=== PATIENT | female | born 1950 | race Caucasian/White ===

== ENCOUNTER 2019-10-20 12:37 | Observation (INO) | payer MEDICARE, SELFPAY ==
[2019-10-20] VITALS (8 sets, daily range): BP systolic 104–128; BP diastolic 51–85; PULSE 70–87; RESP 14–18; TEMP 36.9–38.8; O2SAT 94–99; BMI 31.3
--- NOTE | ~2019-10-20 | CT_ITS ---
EXAMINATION: CT brain wo con DATE: 10/20/2019 15:00 INDICATION: Mental status changes. Confusion. TECHNIQUE: Computed tomography (CT) of the head was performed without intravenous contrast. Sagittal and coronal reconstructions were performed. The mA was adjusted according to patient size. Iterative reconstruction technique was employed. The dose-length product was 605.33 mGy-cm. COMPARISON: head CT dated 02/24/2014 FINDINGS: No acute intracranial hemorrhage, acute infarction or abnormal extra axial fluid collection. Ventricl es are normal and symmetric. No mass/mass effect. Postoperative change of prior scleral buckle proced ure at the right orbit. The paranasal sinuses and mastoid air cells are normal. Intracranial calcifie d cerebral atherosclerosis is noted. IMPRESSION: 1. No acute intracranial process. Reviewed, dictated and finalized at location A.
--- NOTE | ~2019-10-20 | XR_ITS ---
EXAMINATION: XR chest 1V portable INDICATION: Cough TECHNIQUE: Portable AP chest at 0912 hours COMPARISON: 05/21/2012 FINDINGS: The lungs are free of acute opacities. There is no pleural effusion or pneumothorax. The ca rdiomediastinal silhouette is normal. There is an old healed fracture of the distal left clavicle. IMPRESSION: 1. No acute cardiopulmonary abnormality. Reviewed, dictated and finalized at location A.
--- NOTE | 2019-10-20 12:40 | ECG_ITS ---
Measurements Intervals [place] Rate: 83 P: 47 TX: 162 QRS: 53 QRSD: 93 T: 9 QT: 354 QTc: 417 Interpretive Statements SINUS RHYTHM BORDERLINE ST ABNORMALITY- DIFFUSE LEADS BASELINE WANDER- I, III, AVR, AVL, AVF BORDERLINE ECG Electronically Signed On 10-20-2019 13:22:58 CDT by Manas Crouch D.O.
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
[2019-10-20 13:25] LABS: Basophils Absolute Auto 0.03 K/mm3 (0.00-0.10); Basophils Percent Auto 0.4 % (0.0-1.0); Eosinophils Absolute Auto 0.21 K/mm3 (0.02-0.50); Eosinophils Percent Auto 2.9 % (1.0-6.0); Hematocrit 35.2 % (35.0-42.0); Immature Granulocyte Absolute 0.04 K/mm3 (0.00-0.00); Immature Granulocyte Percent A 0.5 % (0.0-0.0); Lymphocytes Absolute Auto 1.02 K/mm3 (1.10-4.50); Lymphocytes Percent Auto 13.9 % (18.0-42.0); Mean Corpuscular HGB Conc 34.1 g/dL (32.0-36.0); Mean Corpuscular Hemoglobin 32.7 pg (27.0-31.0); Mean Corpuscular Volume 95.9 fL (78.0-102.0); Mean Platelet Volume 9.3 fl (9.2-11.8); Monocytes Absolute Auto 0.42 K/mm3 (0.10-0.90); Monocytes Percent Auto 5.7 % (2.0-11.0); Neutrophils Absolute Auto 5.6 K/mm3 (1.7-7.2); Neutrophils Percent Auto 76.6 % (50.0-70.0); Platelet Count Result 226 K/mm3 (150-420); Red Blood Count 3.67 M/mm3 (4.20-5.40); Red Cell Distribution Width 11.5 % (11.6-14.4); White Blood Count 7.3 K/mm3 (4.8-10.8)
[2019-10-20 13:37] LABS: Prothrombin Time 10.5 Seconds (9.64-11.0)
[2019-10-20] MEDS: KETOROLAC 30 MG/ML VIAL (*BKC) IV PUSH (13:38)
[2019-10-20 13:52] LABS: Add Urine Microscopic? YES; Appearance Urine Clear (Clear); Bilirubin Urine Negative (Negative); Blood Urine 3+ (Negative); Color Urine Yellow (Yellow); Glucose Urine UA Negative (Negative); Ketones Urine Negative (Negative); Leukocyte Esterase Ur Negative LEU/UL (Negative); Nitrate Urine Negative (Negative); Protein Urine Negative (Negative); Urobilinogen Urine 0.2 mg/dL (0.2-1.0); pH Urine 6.5 (5.0-8.0)
[2019-10-20 13:57] LABS: Bacteria Urine Trace /hpf; Squamous Epithelial Cell Urine None seen /hpf (Few); WBC Urine 0-3 /hpf (0-3)
[2019-10-20 14:01] LABS: Alanine Aminotransferase 25 U/L (14-59); Albumin Level 3.4 g/dL (3.4-5.0); Alkaline Phosphatase 84 U/L (46-116); Anion Gap 10.7 mmol/L (7-16); Aspartate Amino Transferase 24 U/L (15-37); Bilirubin,Total 0.2 mg/dL (0.00-1.00); Blood Urea Nitrogen 17 mg/dL (7-18); Calcium 8.8 mg/dL (8.5-10.1); Carbon Dioxide 31 mmol/L (21-32); Chloride 99 mmol/L (98-108); Estimated CRCL calculation 45 ml/min; Estimated Glomerular Filt Rate 50; Glucose 105 mg/dL (70-99); Osmolality Calculated 287 mOsm/kg (285-295); Potassium 2.7 mmol/L (3.5-5.1); Sodium 138 mmol/L (136-145); Thyroid Stimulating Hormone 1.59 uIU/mL (0.36-3.74); Total Protein 7.3 g/dL (6.4-8.2)
[2019-10-20] MEDS: KCL 20 MEQ/SW 100 ML 100 ML 50 MEQ IVPB (14:23)
[2019-10-20] MEDS: POTASSIUM BICARBONATE 25 MEQ TABEF PO (14:23)
[2019-10-20] MEDS: SODIUM CHLORIDE 0.9% IV 250 ML 30 ML (14:38)
--- NOTE | 2019-10-20 16:12 | PC.NURSE ---
Pt resting comfortably on stretcher no complaints at this time. potassium continues to infuse
--- NOTE | 2019-10-20 16:34 | PC.NURSE ---
Pt refused to have any further potassium infused. edp aware.
--- NOTE | 2019-10-20 17:13 | PC.NURSE ---
Pt agrees to admission, pts family updated.
[2019-10-20 17:48] LABS: Thyroid Stimulating Hormone 1.48 uIU/mL (0.36-3.74)
--- NOTE | 2019-10-20 18:42 | ADMGEN ---
This patient, Shelley Soria, was admitted to 2nd Floor Room 206-1. Patient/family oriented to hospital policies and general routines including ID bracelet, bed and alarms, visiting hours, pain management, procedures, bathroom and other care routines, personal items, smoking policy, room service/diet, and visiting hours. Valuables list has been completed. Information on how to activate the Rapid Response Team has been discussed. Patient/Family are encouraged to report perceived risks to care and to ask questions if they do not understand what they are told or what they should do.
--- NOTE | 2019-10-20 20:00 | PC.NURSE ---
pt a&o x3, denies any symptoms of dizziness or sob, denies pain, belongings and call light within reach, pt denies any needs at this time.
--- NOTE | 2019-10-20 21:30 | PC.NURSE ---
pt sleeping, respirations even and regular, no evidence of distress noted.
--- NOTE | 2019-10-20 22:37 | PC.NURSE ---
pt sleeping, respirations even and regular, no evidence of distress noted.
[2019-10-20] MEDS: ACETAMINOPHEN 500 MG TABLET 1000 MG PO (23:08)
--- NOTE | 2019-10-21 | PC.NURSE ---
pt temp has returned to wnl, pt a&o x2
[2019-10-21 00:10] VITALS: BP 120/44; PULSE 78; RESP 20; TEMP 37.3; O2SAT 93
--- NOTE | 2019-10-21 02:05 | PC.NURSE ---
pt sleeping, respirations even and regular, no evidence of distress noted at this time.
--- NOTE | 2019-10-21 04:21 | PC.NURSE ---
pt sleeping, respirations even and regular, no evidence of distress noted.
[2019-10-21] MEDS: LEVOTHYROXINE SODIUM 112 MCG TABLET PO (05:18)
--- NOTE | 2019-10-21 05:45 | PC.NURSE ---
lab at bedside
[2019-10-21 06:08] LABS: Basophils Absolute Auto 0.04 K/mm3 (0.00-0.10); Basophils Percent Auto 0.5 % (0.0-1.0); Eosinophils Absolute Auto 0.25 K/mm3 (0.02-0.50); Hematocrit 39.5 % (35.0-42.0); Hemoglobin 13.4 g/dL (11.7-13.8); Immature Granulocyte Absolute 0.05 K/mm3 (0.00-0.00); Immature Granulocyte Percent A 0.6 % (0.0-0.0); Lymphocytes Absolute Auto 1.45 K/mm3 (1.10-4.50); Lymphocytes Percent Auto 17.6 % (18.0-42.0); Mean Corpuscular HGB Conc 33.9 g/dL (32.0-36.0); Mean Corpuscular Hemoglobin 32.6 pg (27.0-31.0); Mean Corpuscular Volume 96.1 fL (78.0-102.0); Mean Platelet Volume 9.8 fl (9.2-11.8); Monocytes Absolute Auto 0.37 K/mm3 (0.10-0.90); Monocytes Percent Auto 4.5 % (2.0-11.0); Neutrophils Absolute Auto 6.1 K/mm3 (1.7-7.2); Neutrophils Percent Auto 73.8 % (50.0-70.0); Platelet Count Result 241 K/mm3 (150-420); Red Blood Count 4.11 M/mm3 (4.20-5.40); Red Cell Distribution Width 11.4 % (11.6-14.4); White Blood Count 8.3 K/mm3 (4.8-10.8)
[2019-10-21 06:21] LABS: Anion Gap 13.3 mmol/L (7-16); Blood Urea Nitrogen 21 mg/dL (7-18); Calcium 8.6 mg/dL (8.5-10.1); Carbon Dioxide 31 mmol/L (21-32); Chloride 102 mmol/L (98-108); Estimated CRCL calculation 41 ml/min; Estimated Glomerular Filt Rate 47; Glucose 105 mg/dL (70-99); Osmolality Calculated 299 mOsm/kg (285-295); Potassium 3.3 mmol/L (3.5-5.1); Sodium 143 mmol/L (136-145)
[2019-10-21 08:00] VITALS: BP 135/60; PULSE 86; RESP 18; TEMP 38.3; O2SAT 95
[2019-10-21] MEDS: ACETAMINOPHEN 500 MG TABLET 1000 MG PO ×2 (08:20→17:53)
--- NOTE | 2019-10-21 08:24 | PC.NURSE ---
tylenol given for headache, no cough, fever 101, denies any other compalints
--- NOTE | 2019-10-21 09:30 | PC.NURSE ---
Alert and oriented, cooperative, sleeping at times, denies needs
[2019-10-21] MEDS: PAROXETINE 20 MG TABLET 40 MG PO (09:53)
[2019-10-21] MEDS: hydroCHLOROthiazide 25 MG TABLET 50 MG PO (09:53)
--- NOTE | 2019-10-21 09:57 | PC.NURSE ---
no change in headache, requesting stronger pain medication, will check with hospitalist
--- NOTE | 2019-10-21 11:08 | PC.NURSE ---
isolation status has changed and will be on aerosol isolation at this time, no change in headache, napping at intervals, fever off and on
[2019-10-21 11:12] LABS: Influenza Control Valid (Valid)
[2019-10-21 11:18] LABS: Acetaminophen 9 ug/mL (10-30); Ethanol < 3 mg/dL (0-6); Salicylate 2.5 mg/dL (2.8-20.0)
[2019-10-21 11:22] LABS: Amphetamine Screen Urine Positive (Negative); Barbiturate Screen Urine Negative (Negative); Benzodiazepines Screen Urine Negative (Negative); Cannabinoid Screen Urine Negative (Negative); Cocaine Screen Urine Negative (Negative); Methadone Screen Urine Negative (Negative); Opiate Screen Urine Negative (Negative); Phencyclidine Screen Urine Negative (Negative)
[2019-10-21 11:41] LABS: Lactic Acid Reflex 0.8 mmol/L (0.4-2.0)
--- NOTE | 2019-10-21 12:00 | PC.NURSE ---
Alert and conversive, encouraged to eat lunch, states not hungry really, sleeping off and on wakes oriented when spoken to,
[2019-10-21] MEDS: POTASSIUM CHLORIDE 20 MEQ PACKET (FOR LIQUID) 40 MEQ PO (13:23)
--- NOTE | 2019-10-21 13:40 | PC.NURSE ---
Bed change completed, has been incontinent, did ambulate to bathroom with SBA, gait steady
--- NOTE | 2019-10-21 14:30 | PC.NURSE ---
Resting quietly, no distress, remains on isolation
[2019-10-21 16:00] VITALS: BP 123/64; PULSE 91; RESP 20; TEMP 38.8; O2SAT 94
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
--- NOTE | 2019-10-21 16:57 | PC.NURSE ---
pt found laying on couch upon entering room, pt had gotten up unassisted to use restroom and reported feeling dizzy so she laid down, up with assist to chair then to bed, reminded not to get up without assist and that due to need for ppe's it takes extra time, call light given, bed alarm on, tv turned on, changed sheets and put depend on
[2019-10-21 17:53] VITALS: TEMP 38.8
--- NOTE | 2019-10-21 19:00 | PC.NURSE ---
pt up out of bed, asks for sleeping pill that will knock her out all night or something for her headache, pt reminded that she was just given tylenol, back in bed, rails up
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
--- NOTE | 2019-10-21 22:03 | PC.NURSE ---
pt appears to be sleeping, no s/sx of distress, laying on stomach, breathing noted, rails up, call light in reach
--- NOTE | 2019-10-21 23:15 | PC.NURSE ---
Patient appears to be sleeping. No signs of distress are observed. Call light is within reach.
[2019-10-22] VITALS: BP 122/69; PULSE 82; RESP 20; TEMP 37.3; O2SAT 98
[2019-10-22] MEDS: ACETAMINOPHEN 500 MG TABLET 1000 MG PO (01:30)
--- NOTE | 2019-10-22 02:51 | PC.NURSE ---
Patient resting in bed. No signs of distress are observed. Call light is within reach.
[2019-10-22 05:38] LABS: Hematocrit 39.7 % (35.0-42.0); Hemoglobin 13.5 g/dL (11.7-13.8); Mean Corpuscular Hemoglobin 32.5 pg (27.0-31.0); Mean Corpuscular Volume 95.7 fL (78.0-102.0); Platelet Count Result 215 K/mm3 (150-420); Red Blood Count 4.15 M/mm3 (4.20-5.40); Red Cell Distribution Width 11.3 % (11.6-14.4); White Blood Count 10.2 K/mm3 (4.8-10.8)
[2019-10-22 06:04] LABS: Lactic Acid 1.2 mmol/L (0.4-2.0)
[2019-10-22 06:10] LABS: Alanine Aminotransferase 26 U/L (14-59); Albumin Level 3.2 g/dL (3.4-5.0); Alkaline Phosphatase 87 U/L (46-116); Anion Gap 16.2 mmol/L (7-16); Aspartate Amino Transferase 23 U/L (15-37); Bilirubin,Total 0.3 mg/dL (0.00-1.00); Blood Urea Nitrogen 21 mg/dL (7-18); Calcium 8.5 mg/dL (8.5-10.1); Carbon Dioxide 29 mmol/L (21-32); Chloride 98 mmol/L (98-108); Estimated CRCL calculation 42 ml/min; Estimated Glomerular Filt Rate 48; Glucose 112 mg/dL (70-99); Magnesium 1.5 mg/dL (1.8-2.4); Osmolality Calculated 294 mOsm/kg (285-295); Potassium 3.2 mmol/L (3.5-5.1); Sodium 140 mmol/L (136-145)
[2019-10-22] MEDS: LEVOTHYROXINE SODIUM 112 MCG TABLET PO (06:37)
[2019-10-22 08:00] VITALS: BP 128/74; PULSE 78; RESP 16; TEMP 36.6; O2SAT 98
[2019-10-22] MEDS: hydroCHLOROthiazide 25 MG TABLET 50 MG PO (08:25)
[2019-10-22] MEDS: PAROXETINE 20 MG TABLET 40 MG PO (08:25)
--- NOTE | 2019-10-22 09:25 | PC.NURSE ---
0900 xray here for test. claims to still leave breakfast and she is hungry but to earily to eat.
[2019-10-22] MEDS: MAGNESIUM OXIDE 400 MG TABLET PO (10:41)
[2019-10-22] MEDS: POTASSIUM CHLORIDE 20 MEQ TABLET 40 MEQ PO (10:41)
--- NOTE | 2019-10-22 12:19 | P.PNIM_ITS ---
Progress Note: A&P Assessment and Plan (1) Hypothyroidism: Code(s): E03.9 - Hypothyroidism, unspecified Status: Acute Assessment and Plan: * stable * TSH 1.48 * continue Synthroid 112 mcg daily (2) Altered mental status: Code(s): R41.82 - Altered mental status, unspecified Status: Acute Assessment and Plan: * could possibly be secondary to noncompliance with psychiatric meds versus bacterial or viral infection * apparently patient has a history of altered mental status * for any medication now alters patient's mental status * will discussed discharge plan to an assisted living * COVID-19 pending * influenza negative * drug screen negative * lactic acid within limits * chest x-ray unremarkable * will follow-up with patient's psychologist (3) Hypertension: Code(s): I10 - Essential (primary) hypertension Status: Acute Assessment and Plan: * stable blood pressure stable * continue hydrochlorothiazide (4) H/O bariatric surgery: Code(s): Z98.84 - Bariatric surgery status Status: Acute Assessment and Plan: * patient will follow-up with [facility] (5) Depression: Code(s): F32.9 - Major depressive disorder, single episode, unspecified Status: Acute Assessment and Plan: * stable * continue Paxil (6) Febrile: Code(s): R50.9 - Fever, unspecified Status: Acute Assessment and Plan: * possibly due to viral versus bacterial infection * patient spiked a fever 101 overnight * white count a slight increase yesterday 8.3 today 10.2 * patient chest x-ray unremarkable * patient blood culture pending * UA does not indicate a urinary tract infection * influenza negative * COVID-19 pending * will closely monitor patient's temperature * continue to treat with Tylenol Subjective Date/time seen: 10/22/19 12:19 Mrs. Soria was alert orientated x4 today. she did not have any complaints at this time. I did speak with patient's son and he informed me that when she is noncompliant with her medication she has episodes similar to this one. I will contact her psychiatrist Dr. Selvin Scott [phone] for any recommendations. The patient did tell me that her roommate makes sure she takes her medication daily. She said that she forgot to tell her son that she doesn't miss her medication anymore. Patient will remain as inpatient for 1 more day seeing that she spiked a temperature of 101? overnight. Review of Systems Constitutional: Constitutional: Denies headache(s) and Reports weakness Eyes: Eyes: Denies loss of vision ENT: Denies vertigo, Denies dizziness and Denies headache(s) Cardiovascular: Cardiovascular: Reports no additional cardiovascular complaints, Denies chest pain, Denies chest pain at rest, Denies syncope, Denies dyspnea, Denies dyspnea on exertion and Denies orthopnea Respiratory: Respiratory: Reports no additional respiratory complaints, Denies pain with cough, Denies dyspnea, Denies dyspnea on exertion and Denies wheezing Gastrointestinal: Gastrointestinal: Reports no additional gastrointestinal complaints, Denies GI cramping, Denies dyspepsia, Denies heartburn, Denies diarrhea, Denies loose stools, Denies nausea, Denies vomiting and Denies hematemesis Genitourinary: Genitourinary: Reports no additional female genitourinary complaints and Denies dysuria Musculoskeletal: Musculoskeletal: Reports no additional musculoskeletal complaints, Denies muscle cramps,
--- NOTE | 2019-10-22 12:19 | PM.IMPN ---
Progress Note: A&P Assessment and Plan (1) Hypothyroidism: Code(s): E03.9 - Hypothyroidism, unspecified Status: Acute Assessment and Plan: stable TSH 1.48 continue Synthroid 112 mcg daily (2) Altered mental status: Code(s): R41.82 - Altered mental status, unspecified Status: Acute Assessment and Plan: could possibly be secondary to noncompliance with psychiatric meds versus bacterial or viral infection apparently patient has a history of altered mental status for any medication now alters patient's mental status will discussed discharge plan to an assisted living [facility]-19 pending influenza negative drug screen negative lactic acid within limits chest x-ray unremarkable will follow-up with patient's psychologist (3) Hypertension: Code(s): I10 - Essential (primary) hypertension Status: Acute Assessment and Plan: stable blood pressure stable continue hydrochlorothiazide (4) H/O bariatric surgery: Code(s): Z98.84 - Bariatric surgery status Status: Acute Assessment and Plan: patient will follow-up with Bariatric Clinic (5) Depression: Code(s): F32.9 - Major depressive disorder, single episode, unspecified Status: Acute Assessment and Plan: stable continue Paxil (6) Febrile: Code(s): R50.9 - Fever, unspecified Status: Acute Assessment and Plan: possibly due to viral versus bacterial infection patient spiked a fever 101 overnight white count a slight increase yesterday 8.3 today 10.2 patient chest x-ray unremarkable patient blood culture pending UA does not indicate a urinary tract infection influenza negative COVID-19 pending will closely monitor patient's temperature continue to treat with Tylenol Subjective Date/time seen: 10/22/19 12:19 Mrs. Soria was alert orientated x4 today. she did not have any complaints at this time. I did speak with patient's son and he informed me that when she is noncompliant with her medication she has episodes similar to this one. I will contact her psychiatrist Dr. Selvin Scott [phone] for any recommendations. The patient did tell me that her roommate makes sure she takes her medication daily. She said that she forgot to tell her son that she doesn't miss her medication anymore. Patient will remain as inpatient for 1 more day seeing that she spiked a temperature of 101? overnight. Review of Systems Constitutional: Constitutional: Denies headache(s) and Reports weakness Eyes: Eyes: Denies loss of vision ENT: Denies vertigo, Denies dizziness and Denies headache(s) Cardiovascular: Cardiovascular: Reports no additional cardiovascular complaints, Denies chest pain, Denies chest pain at rest, Denies syncope, Denies dyspnea, Denies dyspnea on exertion and Denies orthopnea Respiratory: Respiratory: Reports no additional respiratory complaints, Denies pain with cough, Denies dyspnea, Denies dyspnea on exertion and Denies wheezing Gastrointestinal: Gastrointestinal: Reports no additional gastrointestinal complaints, Denies GI cramping, Denies dyspepsia, Denies heartburn, Denies diarrhea, Denies loose stools, Denies nausea, Denies vomiting and Denies hematemesis Genitourinary: Genitourinary: Reports no additional female genitourinary complaints and Denies dysuria Musculoskeletal: Musculoskeletal: Reports no additional musculoskeletal complaints, Denies muscle cramps, Denies muscle weakness, Denies numbness, Denies stiffness and Denies tingling Integumentary/Breasts: Skin/Breast: Reports system reviewed and no additional complaints, except as docu Neurologic: Denies Abnormal speech present, Denies confusion, Denies vertigo, Denies dizziness, Denies syncope, Denies headache(s), Denies loss of vision, Denies numbness, Denies seizure-like activity, Denies tingling and Reports weakness Psychiatric: Psychiatric:
[2019-10-22 13:42] LABS: SARS-CoV-2 RNA PCR Negative
[2019-10-22 16:00] VITALS: BP 108/52; PULSE 76; RESP 18; TEMP 37; O2SAT 98
--- NOTE | 2019-10-22 18:41 | PM.IMHP ---
H&P: HPI History of Present Illness Chief complaint: ambulance Narrative: Shelley Soria is a 69 year old female [facility] Past Medical History Medical History (Updated 10/22/19 @ 12:34 by ANGELA Sahu) Depression Hypertension Hypothyroidism Surgical History Surgical History (Updated 10/20/19 @ 13:51 by Curtis Snell MD) H/O bariatric surgery History of cholecystectomy Social History Social History (Updated 10/20/19 @ 13:52 by Curtis Snell MD) Smoking status: Never smoker Alcohol intake: never Alcohol use details: occasional Substance use: never Gender identity (if verbalized by the patient): Female Spiritual care concerns: No Agree to blood products: Yes Meds Home Medications and Allergies Home Medications Medication Instructions Recorded Confirmed Type dextroamphetamine-amphetamine 7.5 mg PO BID 10/20/19 10/20/19 History hydrochlorothiazide 50 mg PO DAILY 10/20/19 10/20/19 History levothyroxine 112 mcg PO DAILY 10/20/19 10/20/19 History paroxetine HCl 40 mg PO DAILY 10/20/19 10/20/19 History Allergies Allergy/AdvReac Type Severity Reaction Status Date / Time No Known Allergies Allergy Verified 12/01/14 19:40 Vital Signs Vital Signs - 24 hr 10/22/19 00:00 10/22/19 08:00 10/22/19 16:00 Temperature 99.2 F 98 F 98.6 F Pulse Rate 82 78 76 Respiratory Rate 20 16 18 Blood Pressure 122/69 128/74 108/52 L Pulse Oximetry 98 98 98 H&P: Results Labs Labs: Short CBC 10/22/19 Range/Units 05:09 WBC 10.2 (4.8-10.8) K/mm3 Hgb 13.5 (11.7-13.8) g/dL Hct 39.7 (35.0-42.0) % Plt Count 215 (150-420) K/mm3 BMP 10/22/19 05:09 Sodium 140 Potassium 3.2 L Chloride 98 Carbon Dioxide 29 BUN 21 H Creatinine 1.13 H Glucose 112 H Calcium 8.5 Liver Function 10/22/19 Range/Units 05:09 Total Bilirubin 0.3 (0.00-1.00) mg/dL AST 23 (15-37) U/L ALT 26 (14-59) U/L Alkaline Phosphatase 87 (46-116) U/L Albumin 3.2 L (3.4-5.0) g/dL Assessment and Plan Assessment and plan (1) Febrile: Code(s): R50.9 - Fever, unspecified Status: Acute (2) Hypothyroidism: Code(s): E03.9 - Hypothyroidism, unspecified Status: Acute (3) Altered mental status: Code(s): R41.82 - Altered mental status, unspecified Status: Acute
--- NOTE | 2019-10-22 23:15 | PC.NURSE ---
Patient resting in bed. No signs of distress are observed.
[2019-10-23] VITALS: BP 118/62; PULSE 63; RESP 18; TEMP 36; O2SAT 97
--- NOTE | 2019-10-23 01:12 | PC.NURSE ---
Patient ambulated to the bathroom with stand by assist. patient voided. Patient required verbal cues to preform hand hygiene
[2019-10-23] MEDS: ACETAMINOPHEN 500 MG TABLET 1000 MG PO (03:38)
[2019-10-23 05:07] VITALS: TEMP 36.4
[2019-10-23] MEDS: LEVOTHYROXINE SODIUM 112 MCG TABLET PO (05:10)
[2019-10-23 05:45] LABS: Hematocrit 37.5 % (35.0-42.0); Mean Corpuscular HGB Conc 34.7 g/dL (32.0-36.0); Mean Corpuscular Hemoglobin 32.6 pg (27.0-31.0); Mean Platelet Volume 10.2 fl (9.2-11.8); Platelet Count Result 203 K/mm3 (150-420); Red Blood Count 3.99 M/mm3 (4.20-5.40); Red Cell Distribution Width 11.3 % (11.6-14.4); White Blood Count 9.7 K/mm3 (4.8-10.8)
[2019-10-23 06:15] LABS: Alanine Aminotransferase 23 U/L (14-59); Albumin Level 2.9 g/dL (3.4-5.0); Alkaline Phosphatase 80 U/L (46-116); Anion Gap 13.8 mmol/L (7-16); Aspartate Amino Transferase 20 U/L (15-37); Bilirubin,Total 0.2 mg/dL (0.00-1.00); Blood Urea Nitrogen 19 mg/dL (7-18); Calcium 8.5 mg/dL (8.5-10.1); Carbon Dioxide 27 mmol/L (21-32); Chloride 99 mmol/L (98-108); Estimated CRCL calculation 47 ml/min; Estimated Glomerular Filt Rate 54; Glucose 137 mg/dL (70-99); Osmolality Calculated 288 mOsm/kg (285-295); Potassium 2.8 mmol/L (3.5-5.1); Sodium 137 mmol/L (136-145); Total Protein 6.5 g/dL (6.4-8.2)
[2019-10-23 06:18] LABS: Lactic Acid Reflex 1.2 mmol/L (0.4-2.0)
[2019-10-23 07:10] VITALS: PULSE 68; RESP 18; TEMP 36.6; O2SAT 97
[2019-10-23] MEDS: POTASSIUM CHLORIDE 20 MEQ TABLET 40 MEQ PO (09:04)
[2019-10-23] MEDS: PAROXETINE 20 MG TABLET 40 MG PO (09:04)
[2019-10-23] MEDS: hydroCHLOROthiazide 25 MG TABLET 50 MG PO (09:05)
[2019-10-23] MEDS: MAGNESIUM OXIDE 400 MG TABLET PO (09:05)
[2019-10-23 09:53] LABS: Magnesium 1.5 mg/dL (1.8-2.4)
--- NOTE | 2019-10-23 10:27 | PC.NURSE ---
Up in room, independent, denies needs, ready to go home, dressed self
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
--- NOTE | 2019-10-23 11:40 | PC.NURSE ---
Discharge via wheel chair to home, personal items and discharge instructions given to patient, no questions voiced
--- NOTE | 2019-10-27 16:41 | PC.NURSE ---
DISCHARGE FOLLOW UP CALL: NUMBER NOT IN SERVICE [phone]
== END 2019-10-23 11:40 | disposition home or self-care (01) ==
LOC: CHSED 17:20 → CHS2ND 17:27
PROVIDERS: Nurse Practitioner; Admitting Provider Emergency Medicine; Emergency Provider Emergency Medicine; Visit Provider Emergency Medicine
DX: R41.82 Altered mental status, unspecified (principal); E87.6 Hypokalemia; R41.0 Disorientation, unspecified; R50.9 Fever, unspecified; E03.9 Hypothyroidism, unspecified; I10 Essential (primary) hypertension; F32.9 Major depressive disorder, single episode, unspecified; E78.5 Hyperlipidemia, unspecified; R53.1 Weakness; R53.81 Other malaise; Z79.899 Other long term (current) drug therapy; Z20.828 Contact with and (suspected) exposure to other viral communicable diseases; Z98.84 Bariatric surgery status
CPT/HCPCS: 51701; 36415; 70450; 71045; 80048; 80053; 80307; 81001; 83605; 83735; 84443; 85025; 85027; 85610; 87040; 87635; 87804; 93005; 96361; 96365; 96366; 96375; 99285; A9270; G0378; J1885; J3480; J7050; U0003

== ENCOUNTER 2020-07-21 22:34 | Emergency (ER) | payer MEDICARE, SELFPAY ==
--- NOTE | ~2020-07-21 | XR_ITS ---
EXAMINATION: XR chest 1V portable INDICATION: Chest wall pain TECHNIQUE: Portable AP chest at 2310 hours COMPARISON: 10/22/2019 FINDINGS: There are airspace opacities of the left lung base. No pleural effusion or pneumothorax is identified. The cardiomediastinal silhouette is normal. IMPRESSION: 1. Left basilar airspace opacity, consistent with atelectasis versus pneumonia. Reviewed, dictated and finalized at location A. RIAL LIAISON
[2020-07-21 22:43] VITALS: BP 155/61; PULSE 65; RESP 20; TEMP 36.6; O2SAT 98
--- NOTE | 2020-07-21 22:45 | ECG_ITS ---
Measurements Intervals [place] Rate: 66 P: 65 [place]: 183 QRS: 31 QRSD: 86 T: 44 QT: 383 QTc: 404 Interpretive Statements SINUS RHYTHM BASELINE ARTIFACT- I, II, III, AVL, AVF, V4-V6 NORMAL ECG Electronically Signed On 07-22-2020 9:31:53 LIVESTOCK AGENT by Manas Crouch D.O.
[2020-07-21 22:50] VITALS: PULSE 65; O2SAT 97
[2020-07-21] MEDS: KETOROLAC (*BKC) 60 MG/2 ML VIAL IM (22:59)
[2020-07-21 23:48] LABS: Basophils Absolute Auto 0.03 K/mm3 (0.00-0.10); Basophils Percent Auto 0.4 % (0.0-1.0); Eosinophils Absolute Auto 0.09 K/mm3 (0.02-0.50); Eosinophils Percent Auto 1.1 % (1.0-6.0); Hematocrit 35.9 % (35.0-42.0); Hemoglobin 12.3 g/dL (11.7-13.8); Immature Granulocyte Absolute 0.02 K/mm3 (0.00-0.00); Immature Granulocyte Percent A 0.3 % (0.0-0.0); Lymphocytes Absolute Auto 2.39 K/mm3 (1.10-4.50); Lymphocytes Percent Auto 30.1 % (18.0-42.0); Mean Corpuscular HGB Conc 34.3 g/dL (32.0-36.0); Mean Corpuscular Volume 96.2 fL (78.0-102.0); Mean Platelet Volume 9.4 fl (9.2-11.8); Monocytes Absolute Auto 0.62 K/mm3 (0.10-0.90); Monocytes Percent Auto 7.8 % (2.0-11.0); Neutrophils Absolute Auto 4.8 K/mm3 (1.7-7.2); Neutrophils Percent Auto 60.3 % (50.0-70.0); Platelet Count Result 286 K/mm3 (150-420); Red Blood Count 3.73 M/mm3 (4.20-5.40); Red Cell Distribution Width 11.3 % (11.6-14.4); White Blood Count 7.9 K/mm3 (4.8-10.8)
[2020-07-22 00:06] LABS: Alanine Aminotransferase 19 U/L (14-59); Albumin Level 3.7 g/dL (3.4-5.0); Alkaline Phosphatase 86 U/L (46-116); Anion Gap 9 mmol/L (8-16); Aspartate Amino Transferase 16 U/L (15-37); Bilirubin,Total 0.3 mg/dL (0.00-1.00); Blood Urea Nitrogen 34 mg/dL (7-18); Carbon Dioxide 26 mmol/L (21-32); Chloride 103 mmol/L (98-108); Estimated CRCL calculation 47 ml/min; Estimated Glomerular Filt Rate 54; Glucose 104 mg/dL (70-99); Osmolality Calculated 293 mOsm/kg (285-295); Potassium 4.2 mmol/L (3.5-5.1); Sodium 138 mmol/L (136-145); Total Protein 7.7 g/dL (6.4-8.2); Troponin I 7.1 ng/L (0.00-60.4)
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
[2020-07-22 00:16] VITALS: BP 138/56; PULSE 61; RESP 20; O2SAT 98
== END 2020-07-22 00:25 | disposition home or self-care (01) ==
PROVIDERS: Emergency Provider Emergency Medicine; PCP Physician Assistant
DX: M94.0 Chondrocostal junction syndrome [Tietze] (principal); S29.011A Strain of muscle and tendon of front wall of thorax, initial encounter; J18.9 Pneumonia, unspecified organism; I10 Essential (primary) hypertension; E03.9 Hypothyroidism, unspecified
CPT/HCPCS: 36415; 71045; 80053; 84484; 85025; 93005; 96372; 99283; 99284; J1885

== ENCOUNTER 2021-01-11 12:10 | Outpatient (CLI) | payer MEDICARE, SELFPAY ==
--- NOTE | ~2021-01-11 | US_ITS ---
EXAMINATION: US soft tissue head and neck DATE: 01/11/2021 12:35 INDICATION: Enlarging 2 cm right neck mass TECHNIQUE: Multiple grayscale and Doppler ultrasound images of the region of concern at the right nec k below the right ear were obtained. COMPARISON: None FINDINGS/IMPRESSION: 2.2 x 2.0 x 1.3 cm hypoechoic mass with some internal vascularity on color Doppler within the right p arotid gland. Differential includes both benign neoplasm such as pleomorphic adenoma and report and W arthin tumor as well as several types of malignant carcinomas and metastatic disease. Consider ultras ound-guided biopsy for further evaluation. Reviewed, dictated and finalized at location A.
== END 2021-01-11 12:11 | disposition home or self-care (01) ==
LOC: CHSIMG 12:11
PROVIDERS: PCP Physician Assistant; Visit Provider Physician Assistant
DX: R22.1 Localized swelling, mass and lump, neck (principal)
CPT/HCPCS: 76536

== ENCOUNTER 2021-01-23 13:12 | Outpatient (CLI) | payer MEDICARE, SELFPAY ==
--- NOTE | ~2021-01-23 | US_ITS ---
EXAMINATION: US FNA w image guidance DATE: 01/23/2021 14:07 INDICATION: Right neck mass with parotid nodule TECHNIQUE: A time-out was performed to verify the patient's name, date of , and procedure to be performed . The procedure and its benefits and risks were discussed with the patient. Risks specifically discus sed included bleeding and infection. The patient understood the risks and agreed to proceed. The uppe r right neck was prepped and draped in the usual sterile manner. 3 mL 1% lidocaine was used for loca l anesthesia. 6 passes were made with a 25G needle into the lesion. Appropriate needle location was documented with continuous sonographic guidance. The specimens were passed to the cytopathology rené hnologist in the room. A sterile bandage was applied. There were no immediate complications. FINDINGS: Grayscale ultrasound images demonstrate biopsy needles advanced into a 2.1 x 1.3 x 1.6 cm hypoechoic and hypervascular mass in the right parotid gland. IMPRESSION: 1. Successful ultrasound-guided fine needle aspiration of a 2.1 cm hypoechoic right parotid mass. Reviewed, dictated and finalized at location A.
== END 2021-01-23 13:13 | disposition home or self-care (01) ==
PROVIDERS: PCP Physician Assistant; Visit Provider Physician Assistant
DX: R22.1 Localized swelling, mass and lump, neck (principal)
CPT/HCPCS: 10005; 88173; 88305

== ENCOUNTER 2021-01-28 20:04 | Emergency (ER) | payer MEDICARE, SELFPAY ==
--- NOTE | ~2021-01-28 | XR_ITS ---
EXAMINATION: XR abdomen obstructive series DATE: 01/28/2021 22:10 INDICATION: Bilateral abdominal pain. TECHNIQUE: Frontal supine and upright views of the abdomen were obtained. COMPARISON: 11/02/2004 FINDINGS: Large amount of stool scattered throughout the colon. No dilated loops of gas-filled small bowel to s uggest obstruction. Cholecystectomy clips in right upper quadrant. No free intraperitoneal gas. Mil d lumbar levocurvature with severe spondylosis. Sacralized L5 segment. Small calcified nodule at the lateral left midlung zone consistent with old granulomatous disease. Cardiomediastinal silhouette is within normal limits accounting for AP technique. IMPRESSION: 1. No free intraperitoneal gas or dilated gas-filled loops of bowel to suggest obstruction. 2. Large amount of colonic stool. Correlate for possible constipation. Reviewed, dictated and finalized at location A.
[2021-01-28 20:10] VITALS: BP 134/68; PULSE 71; RESP 18; TEMP 36.8; O2SAT 97
--- NOTE | 2021-01-28 20:42 | ED.GENADULT ---
HPI - General Adult General Chief complaint: Abdominal Pain Stated complaint: pain in abdomin and stomach Time Seen by Provider: 01/28/21 20:35 Source: patient Mode of arrival: ambulatory Limitations: no limitations History of Present Illness HPI narrative: Mrs Soria comes in complaining of abdominal pain, off and on, starting this morning today, that has been mild in severity, mostly dull, associated with some mild abdominal cramping. This has been going on all day. Nothing has really made it better or worse. Onset (ago): hour(s) Location: abdomen Radiation: abdomen Severity: mild Quality: aching and dull Pain Consistency: intermittent Relieving factors: medication Associated symptoms: denies other symptoms and shortness of breath Treatments prior to arrival: other (tylenol) Related Data Home Medications Medication Instructions Recorded Confirmed dextroamphetamine-amphetamine 15 mg PO BID 10/20/19 01/28/21 hydrochlorothiazide 50 mg PO DAILY 10/20/19 01/28/21 levothyroxine 112 mcg PO DAILY 10/20/19 01/28/21 paroxetine HCl 40 mg PO DAILY 10/20/19 01/28/21 Allergies Allergy/AdvReac Type Severity Reaction Status Date / Time No Known Allergies Allergy Verified 01/26/21 09:21 Review of Systems Constitutional: Constitutional: Reports no additional constitutional complaints Eyes: Eyes: Reports no additional eye complaints ENT: Reports system reviewed and no additional complaints, except as documented Cardiovascular: Cardiovascular: Reports no additional cardiovascular complaints Respiratory: Respiratory: Reports no additional respiratory complaints Gastrointestinal: Gastrointestinal: Reports no additional gastrointestinal complaints Genitourinary: Genitourinary: Reports no additional female genitourinary complaints Musculoskeletal: Musculoskeletal: Reports no additional musculoskeletal complaints Integumentary/Breasts: Skin/Breast: Reports system reviewed and no additional complaints, except as docu Neurologic: Reports system reviewed and no additional complaints, except as documented Psychiatric: Psychiatric: Reports no additional psychiatric complaints Endocrine: Endocrine: Reports no additional endocrine complaints Hematologic/Lymphatic: Hematologic/Lymphatic: Reports no additional hematologic/lymphatic complaints Allergic/Immunologic: Allergic/Immunologic: Reports no additional allergic/immunologic complaints PMFSH Past Medical History Medical History Depression Hypertension Hypothyroidism Surgical History Surgical History H/O bariatric surgery History of cholecystectomy Family History Family History (Updated 01/29/21 @ 00:52 by Curtis Gifford MD) Mother Hypertension Carcinoma of colon Social History Social History Smoking status: Never smoker Alcohol intake: never Alcohol use details: occasional Substance use: never Gender identity (if verbalized by the patient): Female Spiritual care concerns: No Agree to blood products: Yes Exam Const: General: no acute distress and alert Orientation/consciousness: patient oriented x3 HENMT: Head: normal to inspection Ears: external ears normal General nose exam: Normal external nose present Mouth: Yes Normal oral and palatal mucosa present Throat: posterior oropharynx normal Eyes: Conjunctivae: conjunctivae normal Neck: Neck: normal visual inspection Chest: Chest palpation & inspection: normal inspection of the chest Resp: Effort & Inspection: normal respiratory effort Auscultation: clear to auscultation bilaterally Cardio: Rate: regular rate Rhythm: regular rhythm GI: GI Palp: Yes Soft to palpation Auscultation: normal bowel sounds : General: Yes no CVA tenderness Skin: General skin exam: normal color Rashes: no rashes Neuro: General: patient o
[2021-01-28 21:01] LABS: Basophils Absolute Auto 0.04 K/mm3 (0.00-0.10); Basophils Percent Auto 0.7 % (0.0-1.0); Eosinophils Percent Auto 1.7 % (1.0-6.0); Hematocrit 31.8 % (35.0-42.0); Hemoglobin 10.4 g/dL (11.7-13.8); Immature Granulocyte Absolute 0.02 K/mm3 (0.00-0.00); Immature Granulocyte Percent A 0.3 % (0.0-0.0); Lymphocytes Absolute Auto 2.25 K/mm3 (1.10-4.50); Lymphocytes Percent Auto 37.5 % (18.0-42.0); Mean Corpuscular HGB Conc 32.7 g/dL (32.0-36.0); Mean Corpuscular Hemoglobin 33.2 pg (27.0-31.0); Mean Corpuscular Volume 101.6 fL (78.0-102.0); Mean Platelet Volume 9.7 fl (9.2-11.8); Monocytes Absolute Auto 0.59 K/mm3 (0.10-0.90); Monocytes Percent Auto 9.8 % (2.0-11.0); Platelet Count Result 320 K/mm3 (150-420); Red Blood Count 3.13 M/mm3 (4.20-5.40); Red Cell Distribution Width 11.6 % (11.6-14.4)
[2021-01-28 21:08] LABS: Appearance Urine Clear (Clear); Bilirubin Urine Negative (Negative); Color Urine Light Yellow (Yellow); Glucose Urine UA Negative (Negative); Ketones Urine Negative (Negative); Leukocyte Esterase Ur 1+ LEU/UL (Negative); Nitrate Urine Negative (Negative); Protein Urine Negative (Negative); Specific Grav Ur 1.015 (1.010-1.020); Urobilinogen Urine 0.2 mg/dL (0.2-1.0)
[2021-01-28 21:14] LABS: Add Urine Microscopic? YES; Blood Urine Trace-Intact (Negative); RBC Urine 0-2 /hpf (0-2); Squamous Epithelial Cell Urine Occasional /hpf (Few)
[2021-01-28] MEDS: KETOROLAC 30 MG/ML VIAL (*BKC) IV PUSH (21:23)
[2021-01-28 21:29] LABS: Alanine Aminotransferase 23 U/L (14-59); Albumin Level 3.1 g/dL (3.4-5.0); Alkaline Phosphatase 90 U/L (46-116); Anion Gap 10 mmol/L (8-16); Aspartate Amino Transferase 16 U/L (15-37); Bilirubin,Total 0.1 mg/dL (0.00-1.00); Blood Urea Nitrogen 30 mg/dL (7-18); Calcium 8.8 mg/dL (8.5-10.1); Carbon Dioxide 29 mmol/L (21-32); Chloride 106 mmol/L (98-108); Estimated CRCL calculation 43 ml/min; Estimated Glomerular Filt Rate 51; Glucose 68 mg/dL (70-99); NT Pro B Type Natriuretic Pept 374 pg/mL (0-125); Osmolality Calculated 304 mOsm/kg (285-295); Potassium 3.7 mmol/L (3.5-5.1); Sodium 145 mmol/L (136-145); Total Protein 6.9 g/dL (6.4-8.2)
[2021-01-28 21:30] LABS: Magnesium 1.9 mg/dL (1.8-2.4)
[2021-01-28 22:55] VITALS: BP 148/66; PULSE 69; RESP 20; TEMP 36.9; O2SAT 98
== END 2021-01-28 23:05 | disposition home or self-care (01) ==
PROVIDERS: Emergency Provider Emergency Medicine; PCP Physician Assistant
DX: N39.0 Urinary tract infection, site not specified (principal); I10 Essential (primary) hypertension; E03.9 Hypothyroidism, unspecified
CPT/HCPCS: 36415; 74019; 80053; 81001; 83735; 83880; 85025; 87086; 96365; 96375; 99283; 99284; J0696; J1885

== ENCOUNTER 2021-03-07 13:47 | Outpatient (CLI) | payer MEDICARE, SELFPAY ==
--- NOTE | ~2021-03-07 | XR_ITS ---
EXAMINATION: XR abdomen/kub 1V INDICATION: Right flank pain TECHNIQUE: Supine views of the abdomen were obtained on 2 radiographs. COMPARISON: 01/28/2021 FINDINGS: A large volume of colonic stool is present. Surgical clips in the right upper quadrant are likely from prior cholecystectomy. No urolithiasis is identified. Surgical changes are present in lef t upper quadrant near the gastroesophageal junction. IMPRESSION: 1. Constipation. Reviewed, dictated and finalized at location B. IMPRESSION: 1. Constipation.
== END 2021-03-07 13:48 | disposition home or self-care (01) ==
PROVIDERS: PCP Physician Assistant; Visit Provider Physician Assistant
DX: R10.9 Unspecified abdominal pain (principal)
CPT/HCPCS: 74018

== ENCOUNTER 2021-08-13 16:21 | Emergency (ER) | payer MEDICARE, SELFPAY ==
--- NOTE | ~2021-08-13 | CT_ITS ---
EXAMINATION: CT thoracic spine wo con DATE: 08/13/2021 17:11 INDICATION: Thoracic back pain TECHNIQUE: Computed tomography (CT) of the thoracic spine was performed without intravenous contrast. The dose-length product (DLP) was 864.72 mGy-cm. Iterative reconstruction was used. COMPARISON: None FINDINGS: There are age indeterminate compression fractures of the T4 and T10 vertebral bodies. There is approximately 50% loss of anterior vertebral body height at T4. There is no dislocation or sublux ation. The paravertebral soft tissues are normal. There is mild loss of intervertebral disc space hei ght throughout the thoracic spine. IMPRESSION: 1. Age-indeterminate compression fractures of T4 and T10. Reviewed, dictated and finalized at location F. CE SERVICES COORDINATOR
--- NOTE | ~2021-08-13 | CT_ITS ---
EXAMINATION: CT diagnostic chest wo con DATE: 08/13/2021 17:12 INDICATION: Chest pain with breathing TECHNIQUE: Computed tomography (CT) of the chest was performed without intravenous contrast. The dose -length product (DLP) was 227.69 mGy-cm. Automated exposure control and iterative reconstruction tech nique were employed. COMPARISON: None FINDINGS: There are minimal airspace opacities of the lower lobes. No pleural effusion or pneumothora x is identified. No pathologically enlarged thoracic lymph nodes are identified. The heart size is no rmal. There is a small sliding hiatal hernia. Calcified coronary artery atherosclerosis is noted. The re is mild angulation anteriorly in the bilateral lower ribs. There are age indeterminate compression fractures of the T4 and T10 vertebral bodies. IMPRESSION: 1. Minimal airspace opacities of the lower lobes, likely atelectasis. 2. Mild anterior angulation in lower ribs bilaterally, possibly nondisplaced fractures. Reviewed, dictated and finalized at location F. [facility] SPECIALIST IMPRESSION: 1. Minimal airspace opacities of the lower lobes, likely atelectasis. 2. Mild anterior angulation in lower ribs bilaterally, possibly nondisplaced fr actures.
--- NOTE | ~2021-08-13 | CT_ITS ---
EXAMINATION: CT brain wo con INDICATION: Head injury COMPARISON: 09/30/2019 TECHNIQUE: Standard unenhanced head CT. The dose-length product (DLP) was 605.33 mGy-cm. The mA was a djusted according to patient size. Iterative reconstruction technique was employed. FINDINGS: There is no acute intraparenchymal hemorrhage. No evidence of mass lesion. No evidence of a cute infarction. There is mild periventricular and subcortical hypodensity probably related to small vessel ischemic disease. There is mild prominence of the sulci and ventricles related to cerebral atr ophy. Intracranial calcified cerebral atherosclerosis is noted. There are no extra-axial collections. There is no mass effect or midline shift. Changes of scleral buckle procedure are noted on the right . The visualized sinuses and mastoid air cells are well aerated. IMPRESSION: 1. No acute intracranial abnormality. 2. Age related findings. Reviewed, dictated and finalized at location F. T LEATHER MOSSER
[2021-08-13 16:25] VITALS: BP 155/72; PULSE 65; RESP 16; TEMP 36.6; O2SAT 100
--- NOTE | 2021-08-13 16:39 | ED.FALL ---
HPI - Fall General Chief Complaint: Fall Stated Complaint: upper marleni pain Time Seen by Provider: 08/13/21 16:39 Source: patient, EMS and RN notes reviewed Mode of arrival: EMS Limitations: no limitations History of Present Illness HPI Narrative: Patient was at home when she tripped and fell onto the floor. She said that she thinks she hit her head on the archway floor board that opens up into another room. She denies any loss of consciousness. She was able to get to the front door and call for help. She only complains of pain in her back and mild pain on the crown of her head. complaint: fall Onset (ago): minute(s) (20) Fall from: standing Fall witnessed: no Place fall occurred: home Loss of consciousness: none Context: tripped/slipped Location of injury: head and back (thoracic) Severity: moderate Quality: dull and aching Associated symptoms (after fall): denies Related Data Home Medications Medication Instructions Recorded Confirmed dextroamphetamine-amphetamine 15 mg PO BID 10/20/19 08/13/21 hydrochlorothiazide 50 mg PO DAILY 10/20/19 08/13/21 levothyroxine 112 mcg PO DAILY 10/20/19 08/13/21 paroxetine HCl 40 mg PO DAILY 10/20/19 08/13/21 Allergies Allergy/AdvReac Type Severity Reaction Status Date / Time No Known Allergies Allergy Verified 08/13/21 16:34 Review of Systems Review of Systems: All systems reviewed & are unremarkable except as noted in HPI and below Eyes: Eyes: Denies change in vision Neurologic: Denies confusion, Denies vertigo, Denies dizziness, Denies syncope, Denies headache(s), Denies focal weakness and Denies numbness PMFSH Past Medical History Medical History Depression Hypertension Hypothyroidism Surgical History Surgical History H/O bariatric surgery History of cholecystectomy Family History Family History Mother Hypertension Carcinoma of colon Social History Social History Smoking status: Never smoker Alcohol intake: never Alcohol use details: occasional Substance use: never Gender identity (if verbalized by the patient): Female Spiritual care concerns: No Agree to blood products: Yes Exam Const: General: healthy appearing, no acute distress and alert Nutritional Appearance: well nourished Orientation/consciousness: patient oriented x3 HENMT: Head: normal to inspection, No palpable skull fracture present, normocephalic and scalp tenderness ( Occipital) Ears: external ears normal and TM's normal bilaterally Face and sinus: normal facial exam Eyes: Conjunctivae: conjunctivae normal Pupils: Equal, round and reactive pupils present EOM: EOMs intact bilaterally Neck: Neck: normal visual inspection, full ROM, no meningeal signs, trachea midline and other ( C-collar removed neck cleared) Resp: Effort & Inspection: normal respiratory effort Auscultation: clear to auscultation bilaterally Cardio: Rate: regular rate Rhythm: regular rhythm GI: GI Palp: Yes Soft to palpation, No Tenderness to palpation present (GI) and No Guarding due to palpation present (GI) Auscultation: normal bowel sounds Back/Spine/Pelvis: Cervical Spine: normal cervical lordosis and cervical ROM normal Thoracic/Lumbar Spine: thoraco-lumbar spasm and thoracic spinal tenderness at T5, at T6 and at T7 Pelvis: no pain with anterior-posterior compression Extrem: General: normal to inspection and no clubbing, cyanosis or edema Psych: Appearance: grossly normal and well kempt Mental Status: mental status grossly normal Affect: normal affect Attitude: cooperative Thought content: Yes Normal thought content present Course Course Emergency Course: patient was being moved over to the stretcher after CT scan and complained of chest wall pain. I added CT scan of the
[2021-08-13] MEDS: KETOROLAC 30 MG/ML VIAL (*BKC) IV PUSH (17:14)
[2021-08-13] MEDS: HYDROcodone/acetaminophen (*CRX) 5-325 MG TABLET 1 TAB PO (18:05)
[2021-08-13 18:15] VITALS: BP 135/62; PULSE 71; RESP 16; TEMP 36.8; O2SAT 98
== END 2021-08-13 18:15 | disposition home or self-care (01) ==
PROVIDERS: Emergency Provider Emergency Medicine
DX: S22.040A Wedge compression fracture of fourth thoracic vertebra, initial encounter for closed fracture (principal); W01.0XXA Fall on same level from slipping, tripping and stumbling without subsequent striking against object, initial encounter; I10 Essential (primary) hypertension; E03.9 Hypothyroidism, unspecified
CPT/HCPCS: 70450; 71250; 72128; 96374; 99284; A9270; J1885

== ENCOUNTER 2021-09-13 08:35 | Emergency (ER) | payer MEDICARE, SELFPAY ==
--- NOTE | ~2021-09-13 | CT_ITS ---
EXAMINATION: CTA chest DATE: 09/13/2021 10:12 INDICATION: Chest pain radiating to the back. TECHNIQUE: Computed tomographic angiography (CTA) of the chest was performed with 100 mL Omnipaque-35 0 intravenous contrast. Automated exposure control and iterative reconstruction technique were employ ed. The dose-length product was 187.65 mGy-cm. Maximum intensity projection 3D-reconstructions of the aorta and other arteries were constructed by the technologist on a separate workstation. COMPARISON: Chest CT 08/13/2021, CT abdomen and pelvis 07/03/09 FINDINGS: The lungs demonstrate mild atelectasis. Calcified left lung nodules and calcified left roberta r and mediastinal lymph nodes are consistent with old granulomatous disease. No pleural effusion. The heart size is normal. No pericardial effusion. There are coronary artery calcifications. There is no pulmonary embolus. There is a small sliding hiatal hernia. There are changes of cholecystectomy. The re is chronic mild intrahepatic biliary duct dilatation. The common duct is dilated to 18 mm, stable from 07/03/2009. There is cortical thinning of the kidneys. There is a 19 mm cyst in right kidney. Ther e are changes of gastric bypass procedure. The excluded portion of the stomach is fluid-filled and di stended. There is wall thickening of the gastric antrum with an ulcer and intramural hematoma. There is mild aortic atherosclerosis. No aneurysm or dissection. There is no pulmonary embolus. There is a worsened burst fracture of T4. There is a chronic burst fracture of L1. There is an old healed fractu re of the sternum. There are fractures in the manubrium and body of the sternum that are new from 08/01, likely subacute. There are old healed left rib fractures. IMPRESSION: 1. Ulcer of the gastric antrum with intramural hematoma. 2. Gastric bypass procedure with fluid-filled and distended excluded portion of the stomach. 3. Mild aortic atherosclerosis. No aneurysm or dissection. 4. T4 burst fracture, worsened from 08/13/2021. 5. Fractures of the manubrium and body of the sternum, new from 08/13/2021, likely subacute. Reviewed, dictated and finalized at location A. IMPRESSION: 1. Ulcer of the gastric antrum with intramural hematoma. 2. Gastric bypass procedure with fluid-filled and distended excluded portion of the stomach. 3. Mild aortic atherosclerosis. No aneurysm or dissection. 4. T4 burst fracture, worsened from 08/13/2021. 5. Fractures of the manubrium and body of the sternum, new from 08/13/2021, like ly subacute.
[2021-09-13 08:35] VITALS: BP 134/62; PULSE 70; RESP 16; TEMP 36.3; O2SAT 97
--- NOTE | 2021-09-13 08:46 | ED.HA ---
HPI - Headache General Chief Complaint: Headache Stated Complaint: AMBULANCE Time Seen by Provider: 09/13/21 08:46 Source: patient Mode of arrival: ambulatory History of Present Illness HPI Narrative: 71-year-old female with a past medical history of depression/anxiety, ADHD, hypertension, hypothyroidism, status post bariatric surgery presented to the ER on 08/13/2021 after a fall with headache, back pain and anterior chest pain. The patient had a CT of the head, CT chest noncontrast and CT of the thoracic spine. The patient was noted to have compression fractures of T4 and T10 along with questionable lower rib fractures. The patient presents today with -- headache off and on from the time of her fall. The patient denies any photophobia /phonophobia. She did have some nausea and vomiting. No fever. The headache has improved over the past few minutes. -- Anterior chest pain localized around the sternum and radiating backwards. The patient denies any cough, sputum production or shortness of breath. -- Back pain in the midthoracic region. No relation to activity. She was brought into the ER by EMS. MD elicited complaint: headache Pertinent past history: recent trauma Onset description: gradually Location: diffuse and generalized Severity: moderate Quality & Timing: aching and different than previous headaches Exacerbating factors: none Relieving factors: nothing Context: occurred at rest Associated symptoms: none, chest pain and other ( Back pain in the thoracic region) Treatments prior to arrival: none Related Data Home Medications Medication Instructions Recorded Confirmed dextroamphetamine-amphetamine 15 mg PO BID 10/20/19 09/13/21 hydrochlorothiazide 50 mg PO DAILY 10/20/19 09/13/21 levothyroxine 112 mcg PO DAILY 10/20/19 09/13/21 paroxetine HCl 40 mg PO DAILY 10/20/19 09/13/21 Allergies Allergy/AdvReac Type Severity Reaction Status Date / Time No Known Allergies Allergy Verified 09/13/21 08:44 Review of Systems Review of Systems: All systems reviewed & are unremarkable except as noted in HPI and below Constitutional: Constitutional: Reports as per HPI Eyes: Eyes: Reports as per HPI ENT: Reports system reviewed and no additional complaints, except as documented Cardiovascular: Cardiovascular: Reports as per HPI and Reports chest pain Comments: chest pain over the sternal region which radiates backwards. No pleuritic chest pain. Respiratory: Respiratory: Reports as per HPI and Reports no additional respiratory complaints Gastrointestinal: Gastrointestinal: Reports as per HPI Comments: Patient complain of some nausea and bilious vomiting which was transient. Genitourinary: Genitourinary: Reports no additional female genitourinary complaints and Reports as per HPI Musculoskeletal: Musculoskeletal: Reports no additional musculoskeletal complaints and Reports back pain Comments: Pain in the midthoracic region. Integumentary/Breasts: Skin/Breast: Reports system reviewed and no additional complaints, except as docu Neurologic: Reports system reviewed and no additional complaints, except as documented Psychiatric: Psychiatric: Reports anxiety and Reports depression Endocrine: Endocrine: Reports no additional endocrine complaints Hematologic/Lymphatic: Hematologic/Lymphatic: Reports no additional hematologic/lymphatic complaints Allergic/Immunologic: Allergic/Immunologic: Reports no additional allergic/immunologic complaints PMFSH Past Medical History Medical History Depression Hypertension Hypothyroidism Surgical History Surgical History H/O bariatric surgery History of cholecystectomy Family History Family History Mother Hypertension Carcinoma of colon Social History Social History (Reviewed 09/13/21 @ 09:07 by Tone
--- NOTE | 2021-09-13 08:56 | ECG_ITS ---
Measurements Intervals [place] Rate: 67 P: 56 CO: 167 QRS: 44 QRSD: 92 T: 69 QT: 411 QTc: 437 Interpretive Statements SINUS RHYTHM COMPARED TO ECG 07/21/2020 22:45:34 NO SIGNIFICANT CHANGES Electronically Signed On 09-13-2021 13:16:01 CDT by Latoya Lyons M.D.
[2021-09-13] MEDS: LACTATED RINGERS 1,000 ML 500 ML IV CONT (09:06)
[2021-09-13] MEDS: ONDANSETRON INJ 4 MG/2 ML VIAL IV PUSH (09:19)
[2021-09-13 09:21] LABS: Basophils Absolute Auto 0.03 K/mm3 (0.00-0.10); Basophils Percent Auto 0.4 % (0.0-1.0); Eosinophils Percent Auto 1.4 % (1.0-6.0); Hematocrit 38.9 % (35.0-42.0); Immature Granulocyte Absolute 0.02 K/mm3 (0.00-0.00); Immature Granulocyte Percent A 0.3 % (0.0-0.0); Lymphocytes Absolute Auto 2.01 K/mm3 (1.10-4.50); Lymphocytes Percent Auto 28.1 % (18.0-42.0); Mean Corpuscular HGB Conc 33.4 g/dL (32.0-36.0); Mean Corpuscular Hemoglobin 32.3 pg (27.0-31.0); Mean Corpuscular Volume 96.8 fL (78.0-102.0); Mean Platelet Volume 9.5 fl (9.2-11.8); Monocytes Absolute Auto 0.58 K/mm3 (0.10-0.90); Monocytes Percent Auto 8.1 % (2.0-11.0); Neutrophils Absolute Auto 4.4 K/mm3 (1.7-7.2); Neutrophils Percent Auto 61.7 % (50.0-70.0); Platelet Count Result 286 K/mm3 (150-420); Red Blood Count 4.02 M/mm3 (4.20-5.40); Red Cell Distribution Width 11.9 % (11.6-14.4); White Blood Count 7.2 K/mm3 (4.8-10.8)
[2021-09-13] MEDS: HYDROmorphone HCL INJ (*CRX) 2 MG/ML VIAL 0.5 MG IM (09:21)
[2021-09-13 09:34] LABS: Partial Thromboplastin Time 27.1 SEC (23.90-30.70)
[2021-09-13 09:40] LABS: Lactic Acid Reflex 1.2 mmol/L (0.4-2.0)
[2021-09-13 09:46] LABS: Alanine Aminotransferase 36 U/L (14-59); Albumin Level 3.3 g/dL (3.4-5.0); Alkaline Phosphatase 132 U/L (46-116); Anion Gap 8 mmol/L (8-16); Aspartate Amino Transferase 21 U/L (15-37); Bilirubin,Total 0.4 mg/dL (0.00-1.00); Blood Urea Nitrogen 24 mg/dL (7-18); Calcium 9.1 mg/dL (8.5-10.1); Carbon Dioxide 31 mmol/L (21-32); Chloride 99 mmol/L (98-108); Estimated CRCL calculation 47 ml/min; Estimated Glomerular Filt Rate 59; Glucose 112 mg/dL (70-99); NT Pro B Type Natriuretic Pept 519 pg/mL (0-125); Osmolality Calculated 291 mOsm/kg (285-295); Potassium 3.4 mmol/L (3.5-5.1); Sodium 138 mmol/L (136-145); Thyroid Stimulating Hormone 0.11 uIU/mL (0.36-3.74); Total Protein 7.5 g/dL (6.4-8.2); Troponin I 12.4 ng/L (0.00-60.4)
[2021-09-13 10:15] VITALS: BP 140/74; PULSE 78; RESP 16; TEMP 36.6; O2SAT 97
[2021-09-13 10:24] LABS: Erythrocyte Sedimentation Rate 45 mm/hr (0-20)
[2021-09-13 11:09] LABS: CRP 0.5 mg/dL (0.0-0.9)
[2021-09-13 11:14] VITALS: BP 136/66; PULSE 81; RESP 16; O2SAT 98
[2021-09-13 11:43] VITALS: BP 137/71; PULSE 70; RESP 16; TEMP 36.9; O2SAT 96
--- NOTE | 2021-09-13 13:59 | PC.NURSE ---
1340 pt called stated [facility] does not have NORCO available and requesting rx to be sent to [facility] in [place]. spoke with dr morin and he will send to [facility]. call placed to [facility] to clarify norco availability, [facility] in [place] pharmacy staff , latricia, states norco on back order, unknown when norco will be available. call to [facility] to clarify availability. [facility] staff states norco is available.
--- NOTE | 2021-09-13 14:04 | PC.NURSE ---
Addendum entered by Emory Emanuel RN 09/13/21 14:08: also spoke with pt son Efren to inform of RX to be sent to [facility] , voiced understanding Original Note: call placed to pt , informed rx will be sent to [facility]. pt voiced understanding
== END 2021-09-13 11:49 | disposition home or self-care (01) ==
PROVIDERS: Emergency Provider Internal Medicine Critical Care Medicine; PCP Physician Assistant
DX: S22.21XA Fracture of manubrium, initial encounter for closed fracture (principal); S22.000G Wedge compression fracture of unspecified thoracic vertebra, subsequent encounter for fracture with delayed healing; K25.3 Acute gastric ulcer without hemorrhage or perforation; R51.9 Headache, unspecified; I10 Essential (primary) hypertension; E03.9 Hypothyroidism, unspecified; W19.XXXA Unspecified fall, initial encounter
CPT/HCPCS: 36415; 71275; 80053; 83605; 83880; 84443; 84484; 85025; 85610; 85652; 85730; 86140; 93005; 96361; 96372; 96374; 99284; J1170; J2405; J7120; Q9967

== ENCOUNTER 2022-03-19 21:36 | Emergency (ER) | payer SELFPAY ==
[2022-03-19 22:30] VITALS: BP 124/66; PULSE 58; RESP 16; TEMP 36.3; O2SAT 99
--- NOTE | 2022-03-19 23:39 | PC.NURSE ---
LWBS AT 2338. ENCOURAGED TO RETURN IF SYMPTOMS CHANGE OR WORSEN
== END 2022-03-19 23:38 | disposition left against medical advice (07) ==
PROVIDERS: PCP Physician Assistant
DX: T15.91XA Foreign body on external eye, part unspecified, right eye, initial encounter (principal)
CPT/HCPCS: 99199

== ENCOUNTER 2022-11-07 17:07 | Emergency (ER) | payer MEDICARE, SELFPAY ==
[2022-11-07 17:08] VITALS: BP 130/61; PULSE 68; RESP 14; TEMP 37.4; O2SAT 99
[2022-11-07 17:17] VITALS: BP 130/61; PULSE 68; RESP 14; TEMP 37.4; O2SAT 99
--- NOTE | 2022-11-07 17:23 | ED.EYEPROB ---
HPI - Eye Problem General Chief complaint: Eye Problems Stated complaint: Right eye issue Time Seen by Provider: 11/07/22 17:23 Source: patient Mode of arrival: ambulatory Limitations: no limitations History of Present Illness HPI Narrative: 1-year-old female with a history of anxiety / depression, hypertension, hypothyroidism, gastric ulcer, status post bariatric surgery, had a recent fall and sustained a thoracic compression fracture, questionable lower rib fractures. She had right eye surgery many years ago and presents to the ER with 7 day history of -- irritation right eye. She feels something is poking right eye. She has seen an eye physician in the past and has been advised a repeat surgery. She complains of pain, photophobia, foreign body sensation and tearing for days. MD chief complaint: eye pain, eye redness and vision change Onset (ago): day(s) Onset description: gradual Duration: constant Location: right eye Eye Symptoms: burning, redness, pain, foreign body sensation, decreased vision and photophobia Severity: moderate If Pain, Quality: aching Associated symptoms: none Treatments Prior to Arrival: none Related Data Patient tetanus UTD: No Home Medications Medication Instructions Recorded Confirmed dextroamphetamine-amphetamine 7.5 15 mg PO BID 10/20/19 11/07/22 mg tablet hydrochlorothiazide 50 mg tablet 50 mg PO DAILY 10/20/19 11/07/22 levothyroxine 112 mcg tablet 112 mcg PO DAILY 10/20/19 11/07/22 paroxetine HCl 40 mg tablet 40 mg PO DAILY 10/20/19 11/07/22 Allergies Allergy/AdvReac Type Severity Reaction Status Date / Time No Known Allergies Allergy Verified 11/07/22 17:16 Review of Systems Review of Systems: All systems reviewed & are unremarkable except as noted in HPI and below Constitutional: Constitutional: Reports as per HPI Eyes: Eyes: Reports no additional eye complaints, Reports change in vision and Reports photophobia Comments: Chronic ulcer on right upper sclera ENT: Reports system reviewed and no additional complaints, except as documented and Reports as per HPI Cardiovascular: Cardiovascular: Reports as per HPI and Reports no additional cardiovascular complaints Respiratory: Respiratory: Reports as per HPI and Reports no additional respiratory complaints Gastrointestinal: Gastrointestinal: Reports as per HPI and Reports no additional gastrointestinal complaints Genitourinary: Genitourinary: Reports no additional female genitourinary complaints and Reports as per HPI Musculoskeletal: Musculoskeletal: Reports no additional musculoskeletal complaints and Reports as per HPI Integumentary/Breasts: Skin/Breast: Reports system reviewed and no additional complaints, except as docu and Reports as per HPI Neurologic: Reports system reviewed and no additional complaints, except as documented and Reports as per HPI Psychiatric: Psychiatric: Reports no additional psychiatric complaints and Reports as per HPI Endocrine: Endocrine: Reports no additional endocrine complaints and Reports as per HPI Hematologic/Lymphatic: Hematologic/Lymphatic: Reports no additional hematologic/lymphatic complaints and Reports as per HPI Allergic/Immunologic: Allergic/Immunologic: Reports no additional allergic/immunologic complaints and Reports as per HPI [facility] Past Medical History Medical History Depression Hypertension Hypothyroidism Surgical History Surgical History H/O bariatric surgery History of cholecystectomy Family History Family History Mother Hypertension Carcinoma of colon Social History Social History Smoking status: Never smoker Alcohol intake: never Alcohol use details: occasional Substance use: never Gender identity (if verbalized by th
== END 2022-11-07 17:57 | disposition home or self-care (01) ==
PROVIDERS: Emergency Provider Internal Medicine Critical Care Medicine; PCP Physician Assistant
DX: H10.31 Unspecified acute conjunctivitis, right eye (principal); E03.9 Hypothyroidism, unspecified; I10 Essential (primary) hypertension; F41.9 Anxiety disorder, unspecified; F32.A Depression, unspecified
CPT/HCPCS: 99283

== ENCOUNTER 2023-01-25 17:38 | Emergency (ER) | payer MEDICARE, SELFPAY ==
[2023-01-25 17:38] VITALS: BP 141/61; PULSE 68; RESP 16; TEMP 37; O2SAT 96
--- NOTE | 2023-01-25 17:48 | ED.EYEPROB ---
HPI - Eye Problem General Chief complaint: Eye Problems Stated complaint: right eye pain and vision issue Time Seen by Provider: 01/25/23 17:48 Source: patient Mode of arrival: ambulatory Limitations: no limitations History of Present Illness HPI Narrative: 72-year-old female with a history of ADHD, bipolar, anxiety / depression, hypertension, hypothyroidism status post bariatric surgery, compression fractures of T4/T10, macular degeneration had right eye surgery many years ago. She presents to the ER with a 3 day history of -- right eye pain with tearing -- chronically in decreased vision on the right eye -- right eye redness she does not use contacts on her right eye. No fever or chills. MD chief complaint: eye pain and eye redness Onset (ago): day(s) ( Symptoms started 3 days ago.) Onset description: gradual Duration: constant Location: right eye Eye Symptoms: burning, redness and pain Place: home Severity: moderate If Pain, Quality: aching Associated symptoms: none Treatments Prior to Arrival: none Related Data Patient tetanus UTD: No Home Medications Medication Instructions Recorded Confirmed dextroamphetamine-amphetamine 7.5 15 mg PO BID 10/20/19 01/25/23 mg tablet hydrochlorothiazide 50 mg tablet 50 mg PO DAILY 10/20/19 01/25/23 levothyroxine 175 mcg tablet 175 mcg PO DAILY 01/25/23 01/25/23 paroxetine HCl 30 mg tablet 30 mg PO DAILY 01/25/23 01/25/23 quetiapine 25 mg tablet 20 mg PO HS 01/25/23 01/25/23 quetiapine 50 mg tablet 50 mg PO HS 01/25/23 01/25/23 Allergies Allergy/AdvReac Type Severity Reaction Status Date / Time No Known Allergies Allergy Verified 01/25/23 17:46 Review of Systems Review of Systems: All systems reviewed & are unremarkable except as noted in HPI and below Constitutional: Constitutional: Reports as per HPI and Reports no additional constitutional complaints Eyes: Eyes: Reports as per HPI and Reports no additional eye complaints Comments: Right eye pain, tearing, redness and chronically decreased vision ENT: Reports system reviewed and no additional complaints, except as documented and Reports as per HPI Cardiovascular: Cardiovascular: Reports as per HPI and Reports no additional cardiovascular complaints Respiratory: Respiratory: Reports as per HPI and Reports no additional respiratory complaints Gastrointestinal: Gastrointestinal: Reports as per HPI and Reports no additional gastrointestinal complaints Genitourinary: Genitourinary: Reports no additional female genitourinary complaints Musculoskeletal: Musculoskeletal: Reports no additional musculoskeletal complaints Integumentary/Breasts: Skin/Breast: Reports system reviewed and no additional complaints, except as docu and Reports as per HPI Neurologic: Reports system reviewed and no additional complaints, except as documented and Reports as per HPI Psychiatric: Psychiatric: Reports no additional psychiatric complaints and Reports as per HPI Endocrine: Endocrine: Reports no additional endocrine complaints Hematologic/Lymphatic: Hematologic/Lymphatic: Reports no additional hematologic/lymphatic complaints and Reports as per HPI Allergic/Immunologic: Allergic/Immunologic: Reports no additional allergic/immunologic complaints and Reports as per HPI PMFSH Past Medical History Medical History Depression Hypertension Hypothyroidism Surgical History Surgical History H/O bariatric surgery History of cholecystectomy Family History Family History Mother Hypertension Carcinoma of colon Social History Social History Smoking status: Never smoker Alcohol intake: never Alcohol use details: occasional Substance use: never Gender identity (if verbalized by the patient): Fe
[2023-01-25 17:53] VITALS: BP 141/61; PULSE 68; RESP 12; TEMP 37; O2SAT 96
[2023-01-25 19:42] VITALS: BP 130/80; PULSE 80; RESP 20; TEMP 36.6; O2SAT 98
--- NOTE | 2023-02-05 22:33 | PC.NURSE ---
01/25/23 late entry, transferred by [facility], chart sent with patient
== END 2023-01-25 19:43 | disposition short-term general hospital (02) ==
PROVIDERS: Emergency Provider Internal Medicine Critical Care Medicine; PCP Physician Assistant
DX: H15.9 Unspecified disorder of sclera (principal); H10.31 Unspecified acute conjunctivitis, right eye; I10 Essential (primary) hypertension; E03.9 Hypothyroidism, unspecified; F32.A Depression, unspecified
CPT/HCPCS: 99285

== ENCOUNTER 2023-03-22 10:39 | Emergency (ER) | payer MEDICARE, SELFPAY ==
[2023-03-22 10:39] VITALS: BP 126/66; PULSE 70; RESP 16; TEMP 36.6; O2SAT 98
--- NOTE | 2023-03-22 10:57 | ED.GENADULT ---
HPI - General Adult General Chief complaint: Weakness Stated complaint: weakness Time Seen by Provider: 03/22/23 10:43 Source: patient Mode of arrival: ambulatory Limitations: no limitations History of Present Illness HPI narrative: 72-year-old white female complains of fatigue for the past few days she made appointment with her doctor's office yesterday but then failed to make that appointment. She woke up again today feeling fatigue so she came to emergency room for the evaluation. She says she has history of anemia and thyroid disease. days any pain shortness of breath difficulty voiding or stooling rash or itching lumps or bumps shortness of breath cough fever runny nose dizziness or lightheadedness bleeding or bruising. Denies any other complaints Related Data Home Medications Medication Instructions Recorded Confirmed dextroamphetamine-amphetamine 7.5 15 mg PO BID 10/20/19 01/25/23 mg tablet hydrochlorothiazide 50 mg tablet 50 mg PO DAILY 10/20/19 01/25/23 levothyroxine 175 mcg tablet 175 mcg PO DAILY 01/25/23 01/25/23 paroxetine HCl 30 mg tablet 30 mg PO DAILY 01/25/23 01/25/23 quetiapine 25 mg tablet 20 mg PO HS 01/25/23 01/25/23 quetiapine 50 mg tablet 50 mg PO HS 01/25/23 01/25/23 Allergies Allergy/AdvReac Type Severity Reaction Status Date / Time No Known Allergies Allergy Verified 01/25/23 17:46 Review of Systems Review of Systems: All systems reviewed & are unremarkable except as noted in HPI and below PMFSH Past Medical History Medical History Depression Hypertension Hypothyroidism Surgical History Surgical History H/O bariatric surgery History of cholecystectomy Family History Family History Mother Hypertension Carcinoma of colon Social History Social History Smoking status: Never smoker Alcohol intake: never Alcohol use details: occasional Substance use: never Gender identity (if verbalized by the patient): Female Spiritual care concerns: No Agree to blood products: Yes Exam Narrative: White patient no apparent distress.? Head normocephalic, atraumatic.? Eyes conjunctiva pink sclera nonicteric.? Extraocular movements are intact.? Ears externally normal.? Oropharynx is clear with moist mucous membranes without exudates.? Neck is supple nontender no lymphadenopathy.? Back is nontender.? Lungs are clear.? Heart is regular rate and rhythm without murmurs gallops or rubs.? Chest wall is nontender.? Abdomen is soft and nontender no hepatosplenomegaly or masses no CVA tenderness no abdominal bruits.? Extremities no cyanosis clubbing or edema.? Skin is warm and dry without rashes or lesions.? Neurological patient is alert and oriented x4.? Motor and sensory grossly intact.? Gait is normal. Course Vital Signs Vital signs: Vital Signs Temperature 36.6 C 03/22/23 10:39 Pulse Rate 70 03/22/23 10:39 Respiratory Rate 16 03/22/23 10:39 Blood Pressure 126/66 03/22/23 10:39 Pulse Oximetry 98 03/22/23 10:39 Oxygen Delivery Room Air 03/22/23 10:39 Temperature 36.6 C 03/22/23 10:39 Pulse Rate 70 03/22/23 10:39 Respiratory Rate 16 03/22/23 10:39 Blood Pressure 126/66 03/22/23 10:39 Pulse Oximetry 98 03/22/23 10:39 Oxygen Delivery Room Air 03/22/23 10:39 Medical Decision Making MDM Narrative Medical decision making narrative: Patient was placed in room 2 that history and physical was performed. Labs are drawn for CBC CMP TSH. potassium was 3.3 TSH was 0.24 to the low. Independent Historian: ? Patient Differential Dx includes but not limited to: anemia electrolyte imbalance kidney disease hypothyroidism Medications were Reviewed:? meds reviewed ? Medications treatments given: none Independently Inter
[2023-03-22 10:58] LABS: Hematocrit 36.7 % (35.0-42.0); Hemoglobin 12.1 g/dL (11.7-13.8); Mean Corpuscular Hemoglobin 32.8 pg (27.0-31.0); Mean Corpuscular Volume 99.5 fL (78.0-102.0); Mean Platelet Volume 10.5 fl (9.2-11.8); Platelet Count Result 246 K/mm3 (150-420); Red Blood Count 3.69 M/mm3 (4.20-5.40); Red Cell Distribution Width 11.4 % (11.6-14.4); White Blood Count 5.5 K/mm3 (4.8-10.8)
[2023-03-22 11:23] LABS: Alanine Aminotransferase 26 U/L (14-59); Albumin Level 3.1 g/dL (3.4-5.0); Alkaline Phosphatase 81 U/L (46-116); Anion Gap 8 mmol/L (8-16); Aspartate Amino Transferase 21 U/L (15-37); Bilirubin,Total 0.3 mg/dL (0.00-1.00); Blood Urea Nitrogen 35 mg/dL (7-18); Calcium 9.2 mg/dL (8.5-10.1); Carbon Dioxide 29 mmol/L (21-32); Chloride 104 mmol/L (98-108); Estimated Glomerular Filt Rate > 60; Glucose 143 mg/dL (70-99); Osmolality Calculated 302 mOsm/kg (285-295); Potassium 3.3 mmol/L (3.5-5.1); Sodium 141 mmol/L (136-145); Total Protein 6.8 g/dL (6.4-8.2)
[2023-03-22 11:24] LABS: Thyroid Stimulating Hormone 0.24 uIU/mL (0.36-3.74)
[2023-03-22 11:39] VITALS: BP 128/76; PULSE 82; RESP 20; TEMP 36.9; O2SAT 98
== END 2023-03-22 11:50 | disposition home or self-care (01) ==
PROVIDERS: Emergency Provider Emergency Medicine; PCP Physician Assistant
DX: E87.6 Hypokalemia (principal); R53.83 Other fatigue; E03.9 Hypothyroidism, unspecified; I10 Essential (primary) hypertension; Z79.899 Other long term (current) drug therapy
CPT/HCPCS: 36415; 80053; 84443; 85027; 99283

== ENCOUNTER 2023-04-18 16:16 | Emergency (ER) | payer MEDICARE, SELFPAY ==
[2023-04-18 16:16] VITALS: BP 103/68; PULSE 60; RESP 18; TEMP 36.3; O2SAT 100
--- NOTE | 2023-04-18 17:03 | ED.DENTAL ---
HPI - Dental/Oral General Chief complaint: Dental/Oral Stated complaint: mouth pain Time Seen by Provider: 04/18/23 16:26 Source: patient Mode of arrival: ambulatory Limitations: no limitations History of Present Illness HPI Narrative: this is a 72-year-old female that wears false teeth and recently saw her dentist and has been having gum inflammation and tenderness with no drainage no submandibular gland inflammation tenderness no fever chills no shortness of breath. Complaint: tooth injury ( patient wears false teeth and is having gum inflammation) Onset (ago): week(s) Duration: constant Severity: mild Related Data Home Medications Medication Instructions Recorded Confirmed dextroamphetamine-amphetamine 7.5 15 mg PO BID 10/20/19 04/18/23 mg tablet hydrochlorothiazide 50 mg tablet 50 mg PO DAILY 10/20/19 04/18/23 levothyroxine 175 mcg tablet 175 mcg PO DAILY 01/25/23 04/18/23 paroxetine HCl 30 mg tablet 30 mg PO DAILY 01/25/23 04/18/23 quetiapine 25 mg tablet 20 mg PO HS 01/25/23 04/18/23 quetiapine 50 mg tablet 50 mg PO HS 01/25/23 04/18/23 Allergies Allergy/AdvReac Type Severity Reaction Status Date / Time No Known Allergies Allergy Verified 04/18/23 16:43 Review of Systems Review of Systems: All systems reviewed & are unremarkable except as noted in HPI and below PMFSH Past Medical History Medical History Depression Hypertension Hypothyroidism Surgical History Surgical History H/O bariatric surgery History of cholecystectomy Family History Family History Mother Hypertension Carcinoma of colon Social History Social History Smoking status: Never smoker Alcohol intake: never Alcohol use details: occasional Substance use: never Gender identity (if verbalized by the patient): Female Spiritual care concerns: No Agree to blood products: Yes Exam Const: General: healthy appearing Nutritional Appearance: well nourished Orientation/consciousness: patient oriented x3 Limitations: no limitations HENMT: Head: normal to inspection Other: Gum inflammation and tenderness upper frontal gum area Eyes: Conjunctivae: conjunctivae normal Neck: Neck: normal visual inspection and no lymphadenopathy Chest: Chest palpation & inspection: normal inspection of the chest Resp: Effort & Inspection: normal respiratory effort Auscultation: clear to auscultation bilaterally Cardio: Rate: regular rate Rhythm: regular rhythm Skin: General skin exam: normal color Rashes: no rashes Course Course Emergency Course: patient advised to continue follow with primary care physician and dentist and will be sending antibiotics to her pharmacy. Vital Signs Vital signs: Vital Signs Temperature 36.3 C L 04/18/23 16:16 Pulse Rate 60 04/18/23 16:16 Respiratory Rate 18 04/18/23 16:16 Blood Pressure 103/68 04/18/23 16:16 Pulse Oximetry 100 04/18/23 16:16 Oxygen Delivery Room Air 04/18/23 16:16 Temperature 36.3 C L 04/18/23 16:16 Pulse Rate 60 04/18/23 16:16 Respiratory Rate 18 04/18/23 16:16 Blood Pressure 103/68 04/18/23 16:16 Pulse Oximetry 100 04/18/23 16:16 Oxygen Delivery Room Air 04/18/23 16:16 Critical Care Time Critical Care Time Critical Care Time: No Discharge Plan Discharge Clinical Impression: Gingivitis Patient Disposition: Home, Self-Care Condition: Stable Instructions: Antibiotic Form Additional Instructions: Advised to take medicine as prescribed and follow with dentist for further evaluation and treatment. Prescriptions: New amoxicillin-pot clavulanate [Augmentin] 500-125 mg tablet 1 tablet PO TID Qty: 30 0RF lidocaine HCl 4 % (40 mg/mL) solution 1 applic mucous memb
[2023-04-18 17:16] VITALS: BP 103/68; PULSE 60; RESP 18; TEMP 36.3; O2SAT 100
== END 2023-04-18 17:16 | disposition home or self-care (01) ==
LOC: CHSED 17:09
PROVIDERS: Emergency Provider Emergency Medicine; PCP Physician Assistant
DX: K05.10 Chronic gingivitis, plaque induced (principal); I10 Essential (primary) hypertension; E03.9 Hypothyroidism, unspecified; Z79.899 Other long term (current) drug therapy
CPT/HCPCS: 99283; J2060; J2270

== ENCOUNTER 2023-04-19 01:23 | Observation (INO) | payer MEDICARE, SELFPAY ==
[2023-04-19] VITALS (34 sets, daily range): BP systolic 118–142; BP diastolic 50–99; PULSE 68–89; RESP 16–18; TEMP 36.4–37.2; O2SAT 90–100; BMI 25.6
--- NOTE | ~2023-04-19 | XR_ITS ---
EXAMINATION: XR chest 1V portable Exam Date/Time: 04/20/2023 15:50 CDT HISTORY: generalized pain, worse on deep inspiration Comparison: 07/21/2020. RESULT: Lines, tubes, and devices: Cholecystectomy clips. Lungs and pleura: Diffuse reticular opacities with indistinct vessels. Subsegmental bibasilar opacit ies. Mild right costophrenic angle blunting. Cardiomediastinal silhouette: Stable. Other: No acute osseous or upper abdominal finding. IMPRESSION: Interstitial edema. Subsegmental bibasilar atelectasis/consolidation. Small right pleural effusion. Reviewed, dictated and finalized at location K. IMPRESSION: Interstitial edema. Subsegmental bibasilar atelectasis/consolidation. Small rig ht pleural effusion.
--- NOTE | ~2023-04-19 | CT_ITS ---
CT of the Abdomen and Pelvis: Indication: Abdominal pain Technique: 2.5 mm axial scans were obtained through the abdomen and pelvis following intravenous adm inistration of 100 cc of Omnipaque 350. Dose reduction technique was used on this scan by utilizing a utomated exposure control and iterative reconstruction technique. The dose-length product (DLP) was 4 31.37 mGy-cm. Findings: Scans through the lung bases no stripe mild bibasilar atelectatic changes. Moderate hiatal hernia present. Cholecystectomy clips are present. There is intrahepatic biliary dilatation. There is extensive dilat ation of the common bile duct to 1.7 cm in diameter, with abrupt tapering distally. No obstructing ma ss evident. The spleen, pancreas, adrenals and kidneys are within normal limits. There are mild ather osclerotic calcifications of the aorta. No lymphadenopathy. No bowel obstruction or bowel wall thickening. There is no evidence to suggest acute appendicitis. Images through the pelvis were performed. Urinary bladder unremarkable. Patient is post hysterectomy. No pelvic mass seen. Trace pelvic ascites. There is chronic compression fracture deformity of L2. Impression: Intrahepatic and extra hepatic biliary dilatation, as detailed above, probably chronic and possibly r elated to prior cholecystectomy. Appearance is essentially stable as compared to visualized intrahepa tic and extra hepatic biliary tree from prior chest CT dated 09/13/2021. Moderate hiatal hernia. Chronic L2 compression fracture. Reviewed, dictated and finalized at location . Impression: Intrahepatic and extra hepatic biliary dilatation, as detailed above, probably chronic and possibly related to prior cholecystectomy. Appearance is essentiall y stable as compared to visualized intrahepatic and extra hepatic biliary tree from prior chest CT dated 09/13/2021. Moderate hiatal hernia. Chronic L2 compression fracture.
--- NOTE | ~2023-04-19 | XR_ITS ---
EXAM: XR abdomen/kub 1V DATE: 04/20/2023 16:04 HISTORY: bilateral upper abd pain x few days . COMPARISON: 03/07/2021. FINDINGS: Bibasilar atelectasis/consolidation. Normal bowel gas pattern. No organomegaly. Cholecyste ctomy clips. Surgical comfort over the GE junction. No abnormal abdominal calcification. Degenerative change in the spine. IMPRESSION: No radiographic evidence of obstruction or ileus. Reviewed, dictated and finalized at location K.
[2023-04-19] MEDS: MORPHINE SULFATE (*CRX) 4 MG/ML INJ IV PUSH (01:30)
[2023-04-19] MEDS: LORazepam INJ (*CRX) 2 MG/ML VIAL 0.5 MG IV PUSH (02:00)
--- NOTE | 2023-04-19 03:53 | PC.NURSE ---
computer down during part of care see paper chart
--- NOTE | 2023-04-19 03:54 | PC.NURSE ---
NS completed at 0250 (1000ml infused)
--- NOTE | 2023-04-19 06:21 | ED.ABDPAIN ---
HPI - Abdominal Pain General Chief Complaint: Abdominal Pain Stated Complaint: ABD PAIN Time Seen by Provider: 04/19/23 07:08 Source: patient and EMS Mode of arrival: EMS Limitations: no limitations History of Present Illness HPI narrative: this is a 72 year female presents with abdominal complaints right upper pain and lower abdominal, patient states that this occurred around late in the evening she was some popcorn and called EMS with pain in her abdomen with no nausea or vomiting no diarrhea constipation. No fever chills no flank pain no chest pain no shortness of breath. Patient was here earlier this afternoon sent by her dentist, patient has false teeth and had some gum irritation with inflammation and was started on Augmentin. MD elicited complaint: abdominal pain Pertinent past history: none Onset (ago): hour(s) Pain Consistency: intermittent Location: diffuse and suprapubic Quality: cramping Radiation: none Related Data Home Medications Medication Instructions Recorded Confirmed dextroamphetamine-amphetamine 7.5 15 mg PO BID 10/20/19 04/19/23 mg tablet hydrochlorothiazide 50 mg tablet 50 mg PO DAILY 10/20/19 04/19/23 levothyroxine 175 mcg tablet 175 mcg PO DAILY 01/25/23 04/19/23 paroxetine HCl 30 mg tablet 30 mg PO DAILY 01/25/23 04/19/23 quetiapine 25 mg tablet 20 mg PO HS 01/25/23 04/19/23 quetiapine 50 mg tablet 50 mg PO HS 01/25/23 04/19/23 Allergies Allergy/AdvReac Type Severity Reaction Status Date / Time No Known Allergies Allergy Verified 04/18/23 16:43 Review of Systems Review of Systems: All systems reviewed & are unremarkable except as noted in HPI and below PMFSH Past Medical History Medical History Depression Hypertension Hypothyroidism Surgical History Surgical History H/O bariatric surgery History of cholecystectomy Family History Family History Mother Hypertension Carcinoma of colon Social History Social History Smoking status: Never smoker Alcohol intake: never Alcohol use details: occasional Substance use: never Substance use type: does not use Gender identity (if verbalized by the patient): Female Spiritual care concerns: No Agree to blood products: Yes Exam Const: General: no acute distress Nutritional Appearance: well nourished Limitations: no limitations HENMT: Head: normal to inspection Eyes: Conjunctivae: conjunctivae normal Pupils: Equal, round and reactive pupils present Chest: Chest palpation & inspection: normal inspection of the chest Resp: Effort & Inspection: normal respiratory effort Auscultation: clear to auscultation bilaterally Cardio: Rate: regular rate Rhythm: regular rhythm GI: GI Palp: Yes Soft to palpation and Yes Tenderness to palpation present (GI) Auscultation: normal bowel sounds Back/Spine/Pelvis: Back: no CVA tenderness Skin: General skin exam: normal color Rashes: no rashes Wounds: no wounds Neuro: General: patient oriented x3 and moves all extremities Extrem: General: normal to inspection Psych: Mental Status: mental status grossly normal Affect: normal affect 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 Patient received morphine for pain and patient was agitated and received Ativan. Vital Signs Vital signs: Vital Signs Temperature 37.2 C 04/19/23 01:23 Pulse Rate 78 04/19/23 01:23 Respiratory Rate 18 04/19/23 01:23 Blood Pressure 142/60 H 04/19/23 01:23 Pulse Oximetry 99 04/19/23 01:23 Oxygen Delivery Room
[2023-04-19 07:55] LABS: Alanine Aminotransferase 21 U/L (14-59); Alkaline Phosphatase 82 U/L (46-116); Anion Gap 8 mmol/L (8-16); Aspartate Amino Transferase 18 U/L (15-37); Bilirubin,Total 0.3 mg/dL (0.00-1.00); Blood Urea Nitrogen 38 mg/dL (7-18); Calcium 9.6 mg/dL (8.5-10.1); Carbon Dioxide 31 mmol/L (21-32); Chloride 102 mmol/L (98-108); Estimated CRCL calculation 35 ml/min; Estimated Glomerular Filt Rate 50; Glucose 173 mg/dL (70-99); Lactic Acid Reflex 0.9 mmol/L (0.4-2.0); Lipase 137 U/L (16-77); Osmolality Calculated 305 mOsm/kg (285-295); Potassium 3.2 mmol/L (3.5-5.1); Sodium 141 mmol/L (136-145); Total Protein 6.4 g/dL (6.4-8.2)
[2023-04-19 07:57] LABS: Hematocrit 35.2 % (35.0-42.0); Hemoglobin 11.7 g/dL (11.7-13.8); Mean Corpuscular HGB Conc 33.2 g/dL (32.0-36.0); Mean Corpuscular Hemoglobin 33.3 pg (27.0-31.0); Mean Corpuscular Volume 100.3 fL (78.0-102.0); Red Blood Count 3.51 M/mm3 (4.20-5.40); Red Cell Distribution Width 11.8 % (11.6-14.4); White Blood Count 10.4 K/mm3 (4.8-10.8)
[2023-04-19 07:58] LABS: Basophils Absolute Auto 0.03 K/mm3 (0.00-0.10); Basophils Percent Auto 0.3 % (0.0-1.0); Eosinophils Absolute Auto 0.14 K/mm3 (0.02-0.50); Eosinophils Percent Auto 1.3 % (1.0-6.0); Immature Granulocyte Absolute 0.04 K/mm3 (0.00-0.00); Immature Granulocyte Percent A 0.4 % (0.0-0.0); Lymphocytes Absolute Auto 1.68 K/mm3 (1.10-4.50); Lymphocytes Percent Auto 16.1 % (18.0-42.0); Mean Platelet Volume 9.8 fl (9.2-11.8); Monocytes Absolute Auto 0.33 K/mm3 (0.10-0.90); Monocytes Percent Auto 3.2 % (2.0-11.0); Neutrophils Absolute Auto 8.2 K/mm3 (1.7-7.2); Neutrophils Percent Auto 78.7 % (50.0-70.0); Platelet Count Result 291 K/mm3 (150-420)
[2023-04-19 08:00] LABS: Partial Thromboplastin Time 26.2 SEC (23.90-30.70); Prothrombin Time 10.8 Seconds (9.64-11.0)
[2023-04-19] MEDS: SODIUM CHLORIDE 0.9% IV 1,000 ML 999 ML IV CONT (08:03)
[2023-04-19 08:04] LABS: Appearance Urine Clear (Clear); Bilirubin Urine Negative (Negative); Blood Urine Trace-Intact (Negative); Color Urine Yellow (Yellow); Glucose Urine UA Negative (Negative); Ketones Urine Negative (Negative); Leukocyte Esterase Ur Negative LEU/UL (Negative); Nitrate Urine Negative (Negative); Protein Urine Trace (Negative)
[2023-04-19 08:09] LABS: Add Urine Microscopic? YES; Bacteria Urine 3+ /hpf; RBC Urine 0-2 /hpf (0-2); Squamous Epithelial Cell Urine None seen /hpf (Few); WBC Urine 0-3 /hpf (0-3)
--- NOTE | 2023-04-19 11:05 | ADMGEN ---
This patient, Shelley Soria, was admitted to 2nd Floor Room 210-2. This nurse attempted to discuss hospital policies and general routines including ID bracelet, bed and alarms, visiting hours, pain management, procedures, bathroom and other care routines, personal items, smoking policy, room service/diet, and visiting hours. Patient very groggy/sleepy at time of admit. Patient having trouble keeping eyes open. Will cont. to attempt to educate patient about policies. Patient is alert to herself and the situation. Information on how to activate the Rapid Response Team has been discussed. Patient/Family are encouraged to report perceived risks to care and to ask questions if they do not understand what they are told or what they should do.
--- NOTE | 2023-04-19 11:17 | ED.GENADULT ---
HPI - General Adult General Chief complaint: Abdominal Pain Stated complaint: ABD PAIN Time Seen by Provider: 04/19/23 07:08 Source: patient and EMS Mode of arrival: EMS Limitations: no limitations Related Data Home Medications Medication Instructions Recorded Confirmed dextroamphetamine-amphetamine 7.5 15 mg PO BID 10/20/19 04/19/23 mg tablet hydrochlorothiazide 50 mg tablet 50 mg PO DAILY 10/20/19 04/19/23 levothyroxine 175 mcg tablet 175 mcg PO DAILY 01/25/23 04/19/23 paroxetine HCl 30 mg tablet 30 mg PO DAILY 01/25/23 04/19/23 quetiapine 25 mg tablet 20 mg PO HS 01/25/23 04/19/23 quetiapine 50 mg tablet 50 mg PO HS 01/25/23 04/19/23 Allergies Allergy/AdvReac Type Severity Reaction Status Date / Time No Known Allergies Allergy Verified 04/18/23 16:43 [facility] Past Medical History Medical History Depression Hypertension Hypothyroidism Surgical History Surgical History H/O bariatric surgery History of cholecystectomy Family History Family History Mother Hypertension Carcinoma of colon Social History Social History Smoking status: Never smoker Alcohol intake: never Alcohol use details: occasional Substance use: never Gender identity (if verbalized by the patient): Female Spiritual care concerns: No Agree to blood products: Yes Course Course Emergency Course: Pt signout given by Dr. Mills. She presented with diffuse abdominal pain, for which she was given morphine and lorazepam. CT by my read is normal, maybe some increased small bowel intraluminal fluid consistent with mild enteritis. Labs normal. UA collected and is negative for cystitis. Unfortunately she is quite sedated and now in hypoactive delirium. She is not safe to return to her home alone and has no apparent reliable social support. Will admit to observation while awaiting resolution of sedative and delirium effects. Vital Signs Vital signs: Vital Signs Temperature 37.2 C 04/19/23 01:23 Pulse Rate 78 04/19/23 01:23 Respiratory Rate 18 04/19/23 01:23 Blood Pressure 142/60 H 04/19/23 01:23 Pulse Oximetry 99 04/19/23 01:23 Oxygen Delivery Room Air 04/19/23 01:23 Temperature 36.9 C 04/19/23 11:00 Pulse Rate 70 04/19/23 11:00 Respiratory Rate 17 04/19/23 11:00 Blood Pressure 125/64 04/19/23 11:00 Pulse Oximetry 98 04/19/23 11:00 Oxygen Delivery Nasal Cannula 04/19/23 11:00 Oxygen Flow Rate 2 04/19/23 11:00 Medical Decision Making Vital Signs Vital Signs: Vital Signs Temperature 37.2 C 04/19/23 01:23 Pulse Rate 78 04/19/23 01:23 Respiratory Rate 18 04/19/23 01:23 Blood Pressure 142/60 H 04/19/23 01:23 Pulse Oximetry 99 04/19/23 01:23 Oxygen Delivery Room Air 04/19/23 01:23 Temperature 36.9 C 04/19/23 11:00 Pulse Rate 70 04/19/23 11:00 Respiratory Rate 17 04/19/23 11:00 Blood Pressure 125/64 04/19/23 11:00 Pulse Oximetry 98 04/19/23 11:00 Oxygen Delivery Nasal Cannula 04/19/23 11:00 Oxygen Flow Rate 2 04/19/23 11:00 Lab Data 04/19/23 01:00 04/19/23 01:00 Labs: Lab Results 04/19/23 04/19/23 Range/Units 01:00 07:50 WBC 10.4 (4.8-10.8) K/mm3 RBC 3.51 L (4.20-5.40) M/mm3 Hgb 11.7 (11.7-13.8) g/dL Hct 35.2 (35.0-42.0) % MCV 100.3 (78.0-102.0) fL MCH 33.3 H (27.0-31.0) pg MCHC 33.2 (32.0-36.0) g/dL RDW 11.8 (11.6-14.4) % Plt Count 291 (150-420) K/mm3 MPV 9.8 (9.2-11.8) fl Immature Gran % (Auto) 0.4 H (0.0-0.0) % Neut % (Auto) 78.7 H (50.0-70.0) % Lymph % (Auto) 16.1 L (18.0-42.0) % [place] % (Auto) 3.2 (2.0-11.0) % Eos % (Auto) 1.3 (1.0-6.0) % Baso % (Auto) 0.3 (0.0-1.0) % Lymph # (Auto) 1.68 (1.
[2023-04-19] MEDS: SODIUM CHLORIDE 0.9% IV 1,000 ML 100 ML IV CONT (15:10)
--- NOTE | 2023-04-19 16:58 | PM.IMHP ---
H&P: HPI History of Present Illness Date/Time: 04/19/23 16:58 Chief Complaint: Abdominal pain Narrative: This is a 72-year-old female with a past medical history of depression, hypertension, and hypothyroidism. 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 She was seen earlier in the evening on 04/18 for gum pain. She was discharged home at that time with viscous lidocaine and Augmentin and told to follow-up with her dentist. On this admission, she did have a slight creatinine bump of 1.08, her lipase was 137, and her UA had 3+ bacteria. She had a CT abdomen and pelvis which showed intrahepatic and extrahepatic biliary dilatation possibly chronic and related to prior cholecystectomy. Dilation is stable when compared to imaging from 09/13/2021. She also had a mild hiatal hernia and a chronic L2 compression fracture. Apparently she was agitated and therefore she received IV Ativan as well as IV morphine. Since she has received those agents she has remained somnolent in the ER. The ED physician was wanting to discharge her home today however she is too drowsy to safely discharge and is requiring oxygen to keep her sats above 90%. She is being admitted to medical floor for observation, IV fluids, and oxygen therapy. Unfortunately due to her somnolence she is unable to participate in H&P therefore the majority of the history is obtained per chart review. She does appear dry as her lips are cracked and mucous membranes are tacky. Will continue with IV fluids. Review of Systems Review of Systems: ROS unobtainable: Yes unobtainable due to mental status PMFSH Past Medical History Medical History Depression Hypertension Hypothyroidism Surgical History Surgical History H/O bariatric surgery History of cholecystectomy Family History Family History Mother Hypertension Carcinoma of colon Social History Social History Smoking status: Never smoker Alcohol intake: never Alcohol use details: occasional Substance use: never Substance use type: does not use Gender identity (if verbalized by the patient): Female Spiritual care concerns: No Agree to blood products: Yes Meds Home Medications and Allergies Home Medications Medication Instructions Recorded Confirmed Type dextroamphetamine-amphetamine 7.5 15 mg PO BID 10/20/19 04/19/23 History mg tablet hydrochlorothiazide 50 mg tablet 50 mg PO DAILY 10/20/19 04/19/23 History lamotrigine 200 mg tablet 200 mg PO DAILY #90 tabs 10/23/19 04/19/23 Rx levothyroxine 175 mcg tablet 175 mcg PO DAILY 01/25/23 04/19/23 History paroxetine HCl 30 mg tablet 30 mg PO DAILY 01/25/23 04/19/23 History quetiapine 25 mg tablet 20 mg PO HS 01/25/23 04/19/23 History quetiapine 50 mg tablet 50 mg PO HS 01/25/23 04/19/23 History potassium chloride 20 mEq 20 meq PO DAILY #30 tabs 03/22/23 04/19/23 Rx tablet,extended release(part/cryst) amoxicillin 500 mg-potassium 1 tablet PO TID #30 tabs 04/18/23 04/19/23 Rx clavulanate 125 mg tablet (Augmentin) lidocaine HCl 4 % (40 mg/mL) 1 applic mucous membrane QID PRN 04/18/23 04/19/23 Rx mucosal solution pain #50 mL Allergies Allergy/AdvReac Type Severity Reaction Status Date / Time No Known Allergies Allergy Verified 04/18/23 16:43 Vital Signs Vital Signs - 24 hr 04/19/23 01:23 04/19/23 03:00 04/19/23 04:13 Temperature 99 F 98 F 98 F Pulse Rate 78 70 78 Respiratory Rate 18 16 18 Blood Pressure 142/60 H 120/56 L 138/68 Pulse Oximetry 99 96 96 Oxygen Delivery Room Air Room Air Room Air Oxygen Flow Rate 04/19/23 05:15 04/19/23 06:45 04/19/23 07:15 Temperature 97.6 F Pulse Rate 68 72 74 Respiratory Rate 18 16 17 Blood Pressure 128/88 132/60
[2023-04-19 17:30] LABS: Basophils Absolute Auto 0.03 K/mm3 (0.00-0.10); Basophils Percent Auto 0.2 % (0.0-1.0); Hematocrit 32.4 % (35.0-42.0); Immature Granulocyte Absolute 0.05 K/mm3 (0.00-0.00); Immature Granulocyte Percent A 0.4 % (0.0-0.0); Lymphocytes Percent Auto 10.1 % (18.0-42.0); Mean Corpuscular Hemoglobin 33.3 pg (27.0-31.0); Mean Corpuscular Volume 98.2 fL (78.0-102.0); Monocytes Absolute Auto 1.03 K/mm3 (0.10-0.90); Monocytes Percent Auto 7.4 % (2.0-11.0); Neutrophils Absolute Auto 11.4 K/mm3 (1.7-7.2); Neutrophils Percent Auto 81.9 % (50.0-70.0); Platelet Count Result 281 K/mm3 (150-420); Red Cell Distribution Width 11.7 % (11.6-14.4); White Blood Count 13.9 K/mm3 (4.8-10.8)
[2023-04-19 17:44] LABS: Lipase 56 U/L (16-77)
[2023-04-19 17:48] LABS: Alanine Aminotransferase 226 U/L (14-59); Albumin Level 2.8 g/dL (3.4-5.0); Alkaline Phosphatase 175 U/L (46-116); Anion Gap 8 mmol/L (8-16); Aspartate Amino Transferase 208 U/L (15-37); Bilirubin,Total 0.4 mg/dL (0.00-1.00); Blood Urea Nitrogen 26 mg/dL (7-18); Carbon Dioxide 28 mmol/L (21-32); Chloride 105 mmol/L (98-108); Estimated CRCL calculation 43 ml/min; Estimated Glomerular Filt Rate > 60; Glucose 118 mg/dL (70-99); Osmolality Calculated 297 mOsm/kg (285-295); Potassium 3.3 mmol/L (3.5-5.1); Sodium 141 mmol/L (136-145); Total Protein 6.5 g/dL (6.4-8.2)
--- NOTE | 2023-04-19 18:49 | PC.NURSE ---
Pt has visitor at bedside, pt agreed for visit. Pt waking up briefly, but going back to sleep.
[2023-04-19] MEDS: PIPERACILLIN/TAZ 2.25G/NS 50ML 2.25 GM/50 ML BAG IVPB (22:04)
--- NOTE | 2023-04-19 23:33 | PC.NURSE ---
This nurse was made aware by Chelita MORENO that Pt had made a call to them and hung up. Chelita MORENO called to make sure that Pt was ok and was reassured that she was however she was very confused and anxious.
--- NOTE | 2023-04-19 23:44 | PC.NURSE ---
Notified Donn Cunha NP regarding pt's restlessness and inability to sleep. New orders received and noted.
[2023-04-20] VITALS: BP 135/56; PULSE 73; RESP 15; TEMP 36; O2SAT 96
[2023-04-20] MEDS: QUEtiapine FUMARATE 25 MG TABLET 75 MG PO ×2 (00:02→20:15)
[2023-04-20] MEDS: SODIUM CHLORIDE 0.9% IV 1,000 ML 100 ML IV CONT ×2 (03:13→13:57)
[2023-04-20 05:39] LABS: Basophils Absolute Auto 0.03 K/mm3 (0.00-0.10); Basophils Percent Auto 0.3 % (0.0-1.0); Eosinophils Absolute Auto 0.06 K/mm3 (0.02-0.50); Eosinophils Percent Auto 0.6 % (1.0-6.0); Hematocrit 29.8 % (35.0-42.0); Hemoglobin 9.8 g/dL (11.7-13.8); Immature Granulocyte Absolute 0.05 K/mm3 (0.00-0.00); Immature Granulocyte Percent A 0.5 % (0.0-0.0); Lymphocytes Absolute Auto 1.77 K/mm3 (1.10-4.50); Lymphocytes Percent Auto 18.6 % (18.0-42.0); Mean Corpuscular HGB Conc 32.9 g/dL (32.0-36.0); Mean Corpuscular Hemoglobin 32.6 pg (27.0-31.0); Mean Platelet Volume 10.2 fl (9.2-11.8); Monocytes Absolute Auto 0.81 K/mm3 (0.10-0.90); Monocytes Percent Auto 8.5 % (2.0-11.0); Neutrophils Absolute Auto 6.8 K/mm3 (1.7-7.2); Neutrophils Percent Auto 71.5 % (50.0-70.0); Platelet Count Result 227 K/mm3 (150-420); Red Blood Count 3.01 M/mm3 (4.20-5.40); Red Cell Distribution Width 11.8 % (11.6-14.4); White Blood Count 9.5 K/mm3 (4.8-10.8)
[2023-04-20 05:52] LABS: Alanine Aminotransferase 141 U/L (14-59); Albumin Level 2.3 g/dL (3.4-5.0); Alkaline Phosphatase 139 U/L (46-116); Anion Gap 7 mmol/L (8-16); Aspartate Amino Transferase 94 U/L (15-37); Bilirubin,Total 0.4 mg/dL (0.00-1.00); Blood Urea Nitrogen 22 mg/dL (7-18); Calcium 8.6 mg/dL (8.5-10.1); Carbon Dioxide 27 mmol/L (21-32); Chloride 106 mmol/L (98-108); Estimated CRCL calculation 43 ml/min; Estimated Glomerular Filt Rate > 60; Glucose 98 mg/dL (70-99); Osmolality Calculated 293 mOsm/kg (285-295); Potassium 3.1 mmol/L (3.5-5.1); Sodium 140 mmol/L (136-145); Total Protein 5.6 g/dL (6.4-8.2)
[2023-04-20] MEDS: LEVOTHYROXINE SODIUM 100 MCG, LEVOTHYROXINE SODIUM 75 MCG 175 MCG PO (06:14)
[2023-04-20] MEDS: PIPERACILLIN/TAZ 2.25G/NS 50ML 2.25 GM/50 ML BAG IVPB ×3 (06:20→21:24)
[2023-04-20 08:00] VITALS: BP 138/53; PULSE 65; RESP 14; TEMP 36.3; O2SAT 97
[2023-04-20] MEDS: POTASSIUM CHLORIDE 20 MEQ ER TABLET PO (09:18)
--- NOTE | 2023-04-20 10:00 | PM.IMPN ---
Progress Note: A&P Assessment and Plan (1) Abdominal pain: Code(s): R10.9 - Unspecified abdominal pain Status: Acute Assessment and Plan: Initially presented to the ER with complaints of abdominal pain after eating popcorn. Per the ER note patient denied fever, chills, flank pain, chest pain, and shortness a breath. She was seen previously in the day with complaints of gum irritation with inflammation and was started on Augmentin. Received IV morphine in the ER as well as IV Ativan. Since then she has been somnolent and no complaints of pain. Repeat a lipase this afternoon as well as BMP. Lipase normal. Liver enzymes were elevated on 04/19. Today, 04/20 liver enzymes have started to trend back to normal. CT of her abdomen and pelvis shows the following, Impression: Intrahepatic and extra hepatic biliary dilatation, as detailed above, probably chronic and possibly related to prior cholecystectomy. Appearance is essentially stable as compared to visualized intrahepatic and extra hepatic biliary tree from prior chest CT dated 09/13/2021. Moderate hiatal hernia. Chronic L2 compression fracture. KUB 04/20 shows lots of gas and some stool burden to the ascending colon. Add gas x, miralax, and senna. (2) Adverse effect of benzodiazepines, initial encounter: Code(s): T42.4X5A - Adverse effect of benzodiazepines, initial encounter Status: Acute Assessment and Plan: Admitted to for observation oxygen has been weaned now that she is more alert Fall and aspiration precautions Continuous pulse ox (3) Altered mental status: Code(s): R41.82 - Altered mental status, unspecified Status: Acute Assessment and Plan: Baseline orientation is A&O x4 Lethargic at this time suspected to be from IV medications she received in the ER Drowsy but answers questions and is conversational (4) Hypothyroidism: Code(s): E03.9 - Hypothyroidism, unspecified Status: Acute Assessment and Plan: Stable on levothyroxine TSH level was low there 0.24 Add on T3-T4 for the morning (5) Hypertension: Code(s): I10 - Essential (primary) hypertension Status: Acute Assessment and Plan: Blood pressures reviewed and are stable systolic ranging in the 130s to 1 teens Given her sedation will hold her antihypertensives for now Blood pressures reviewed (6) Depression: Code(s): F32.9 - Major depressive disorder, single episode, unspecified Status: Acute Assessment and Plan: Stable She takes Adderall, Lamictal, and Paxil. She is also on Seroquel at HS. Agents restarted as she was agitated last night and unable to sleep Today she has been displaying odd behaviors like laying on the floor of her room. Restarted psych meds. Plan Hoping to d/c tomorrow Subjective Date/time seen: 04/20/23 10:00 Interval history: This is a 72-year-old female with a past medical history of depression, hypertension, and hypothyroidism.? 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 She was seen earlier in the evening on 04/18 for gum pain.? She was discharged home at that time with viscous lidocaine and Augmentin and told to follow-up with her dentist.? On this admission, she did have a slight creatinine bump of 1.08, her lipase was 137, and her UA had 3+ bacteria.? She had a CT abdomen and pelvis which showed intrahepatic and extrahepatic biliary dilatation possibly chronic and related to prior cholecystectomy.? Dilation is stable when compared to imaging from 09/13/2021.? She also had a mild hiatal hernia and a chronic L2 compression fracture.? Apparently she was agitated and therefore she received IV Ativan as well as IV morphine.? Since she has received those agents she has remained somnolent in the ER.? The ED physician was wanting to discharge her home today however she is too drowsy to safely discharge and is req
[2023-04-20] MEDS: IBUPROFEN 600 MG TABLET PO (10:44)
[2023-04-20] MEDS: hydroCHLOROthiazide 25 MG TABLET 50 MG PO (13:58)
[2023-04-20] MEDS: lamoTRIgine 100 MG TABLET 200 MG PO (13:59)
[2023-04-20] MEDS: PARoxetine 10 MG TABLET 30 MG PO (14:07)
[2023-04-20] MEDS: SIMETHICONE 80 MG TAB.CHEW PO ×2 (16:33→20:15)
[2023-04-20] MEDS: KETOROLAC 30 MG/ML VIAL (*BKC) IV PUSH (16:33)
[2023-04-20 16:35] VITALS: BP 164/72; PULSE 71; RESP 18; TEMP 36.6; O2SAT 90
[2023-04-20] MEDS: POTASSIUM CHLORIDE 20 MEQ ER TABLET 60 MEQ PO (17:32)
[2023-04-21] VITALS: BP 142/74; PULSE 74; RESP 18; TEMP 36.4; O2SAT 91
[2023-04-21] MEDS: KETOROLAC 30 MG/ML VIAL (*BKC) IV PUSH (04:43)
[2023-04-21] MEDS: LEVOTHYROXINE SODIUM 100 MCG, LEVOTHYROXINE SODIUM 75 MCG 175 MCG PO (06:10)
[2023-04-21 06:27] LABS: Basophils Absolute Auto 0.03 K/mm3 (0.00-0.10); Basophils Percent Auto 0.3 % (0.0-1.0); Eosinophils Absolute Auto 0.24 K/mm3 (0.02-0.50); Eosinophils Percent Auto 2.1 % (1.0-6.0); Hematocrit 30.2 % (35.0-42.0); Hemoglobin 10.3 g/dL (11.7-13.8); Immature Granulocyte Absolute 0.05 K/mm3 (0.00-0.00); Immature Granulocyte Percent A 0.4 % (0.0-0.0); Lymphocytes Absolute Auto 1.91 K/mm3 (1.10-4.50); Lymphocytes Percent Auto 16.5 % (18.0-42.0); Mean Corpuscular HGB Conc 34.1 g/dL (32.0-36.0); Mean Corpuscular Hemoglobin 33.6 pg (27.0-31.0); Mean Corpuscular Volume 98.4 fL (78.0-102.0); Mean Platelet Volume 10.5 fl (9.2-11.8); Monocytes Absolute Auto 0.95 K/mm3 (0.10-0.90); Monocytes Percent Auto 8.2 % (2.0-11.0); Neutrophils Absolute Auto 8.4 K/mm3 (1.7-7.2); Neutrophils Percent Auto 72.5 % (50.0-70.0); Platelet Count Result 249 K/mm3 (150-420); Red Blood Count 3.07 M/mm3 (4.20-5.40); Red Cell Distribution Width 11.9 % (11.6-14.4); White Blood Count 11.6 K/mm3 (4.8-10.8)
[2023-04-21 06:48] LABS: Alanine Aminotransferase 89 U/L (14-59); Albumin Level 2.3 g/dL (3.4-5.0); Alkaline Phosphatase 141 U/L (46-116); Anion Gap 9 mmol/L (8-16); Aspartate Amino Transferase 35 U/L (15-37); Bilirubin,Total 0.5 mg/dL (0.00-1.00); Blood Urea Nitrogen 21 mg/dL (7-18); Calcium 8.8 mg/dL (8.5-10.1); Carbon Dioxide 25 mmol/L (21-32); Chloride 106 mmol/L (98-108); Estimated CRCL calculation 39 ml/min; Estimated Glomerular Filt Rate 58; Glucose 99 mg/dL (70-99); Magnesium 1.6 mg/dL (1.8-2.4); Osmolality Calculated 293 mOsm/kg (285-295); Potassium 3.8 mmol/L (3.5-5.1); Sodium 140 mmol/L (136-145); Total Protein 5.9 g/dL (6.4-8.2)
[2023-04-21 07:19] LABS: Folic Acid 11.7 ng/mL (8.6->20); Iron 14 ug/dL (50-170); Percent Iron Saturation 6 % (12-57); Vitamin B12 954 pg/mL (193-986)
[2023-04-21 08:00] VITALS: BP 135/59; PULSE 70; RESP 14; TEMP 36.3; O2SAT 93
[2023-04-21] MEDS: AMOXICILLIN/CLAVULANATE K 875-125 MG TAB 1 TABLET PO (08:59)
[2023-04-21] MEDS: guaiFENesin 12 HR 600 MG TABCR PO (08:59)
[2023-04-21] MEDS: AZITHROMYCIN 250 MG TABLET 500 MG PO (09:00)
[2023-04-21] MEDS: FERROUS SULFATE 325 MG TABLET DR PO (09:00)
[2023-04-21] MEDS: POTASSIUM CHLORIDE 20 MEQ ER TABLET PO (09:00)
[2023-04-21] MEDS: lamoTRIgine 100 MG TABLET 200 MG PO (09:00)
[2023-04-21] MEDS: SIMETHICONE 80 MG TAB.CHEW PO ×2 (09:00→13:26)
[2023-04-21] MEDS: hydroCHLOROthiazide 25 MG TABLET 50 MG PO (09:01)
[2023-04-21] MEDS: MAGNESIUM OXIDE 400 MG TABLET PO (09:01)
[2023-04-21] MEDS: IRON SUCROSE COMPLEX 300 MG in SODIUM CHLORIDE 0.9% IV 250 ML 125 MG IVPB (11:17)
--- NOTE | 2023-04-21 11:19 | PC.NURSE ---
Paxil 30 mg given po. [facility] would not allow scan because of dose.
--- NOTE | 2023-04-21 12:24 | PM.DS ---
DS: Admitting Diagnosis Discharge Date 04/21 Admitting Diagnosis abdominal pain DS: Discharge Diagnosis Discharge Diagnosis (1) Abdominal pain: Code(s): R10.9 - Unspecified abdominal pain Status: Acute Assessment and Plan: Initially presented to the ER with complaints of abdominal pain after eating popcorn. Per the ER note patient denied fever, chills, flank pain, chest pain, and shortness a breath. She was seen previously in the day with complaints of gum irritation with inflammation and was started on Augmentin. Received IV morphine in the ER as well as IV Ativan. Since then she has been somnolent and no complaints of pain. Repeat a lipase this afternoon as well as BMP. Lipase normal. Liver enzymes were elevated on 04/19. Today, 04/20 liver enzymes have started to trend back to normal. CT of her abdomen and pelvis shows the following, Impression: Intrahepatic and extra hepatic biliary dilatation, as detailed above, probably chronic and possibly related to prior cholecystectomy. Appearance is essentially stable as compared to visualized intrahepatic and extra hepatic biliary tree from prior chest CT dated 09/13/2021. Moderate hiatal hernia. Chronic L2 compression fracture. KUB 04/20 shows lots of gas and some stool burden to the ascending colon. Add gas x, miralax, and senna. (2) Adverse effect of benzodiazepines, initial encounter: Code(s): T42.4X5A - Adverse effect of benzodiazepines, initial encounter Status: Acute Assessment and Plan: Admitted to for observation oxygen has been weaned now that she is more alert Fall and aspiration precautions Continuous pulse ox (3) Altered mental status: Code(s): R41.82 - Altered mental status, unspecified Status: Acute Assessment and Plan: Baseline orientation is A&O x4 Lethargic at this time suspected to be from IV medications she received in the ER Drowsy but answers questions and is conversational Orientation is improved today (4) Hypothyroidism: Code(s): E03.9 - Hypothyroidism, unspecified Status: Acute Assessment and Plan: Stable on levothyroxine TSH level was low there 0.24 Add on T3-T4 for the morning (5) Hypertension: Code(s): I10 - Essential (primary) hypertension Status: Acute Assessment and Plan: Blood pressures reviewed and are stable systolic ranging in the 130s to 1 teens Given her sedation will hold her antihypertensives for now Blood pressures reviewed (6) Depression: Code(s): F32.9 - Major depressive disorder, single episode, unspecified Status: Acute Assessment and Plan: Stable She takes Adderall, Lamictal, and Paxil. She is also on Seroquel at HS. Agents restarted as she was agitated last night and unable to sleep Today she has been displaying odd behaviors like laying on the floor of her room. Restarted psych meds. Plan Hoping to d/c tomorrow DS: Summary Hospital Course Hospital Course: Interval history: This is a 72-year-old female with a past medical history of depression, hypertension, and hypothyroidism.? She presented [facility] chief libr[facility] on 04/19 with complaints of abdominal pain.? She was seen earlier in the evening on 04/18 for gum pain.? She was discharged home at that time with viscous lidocaine and Augmentin and told to follow-up with her dentist.? On this admission, she did have a slight creatinine bump of 1.08, her lipase was 137, and her UA had 3+ bacteria.? She had a CT abdomen and pelvis which showed intrahepatic and extrahepatic biliary dilatation possibly chronic and related to prior cholecystectomy.? Dilation is stable when compared to imaging from 09/13/2021.? She also had a mild hiatal hernia and a chronic L2 compression fracture.? Apparently she was agitated and therefore she received IV Ativan as well as IV morphine.? Since she has received those agents she has remained somnolent in
--- NOTE | 2023-04-21 15:22 | PC.NURSE ---
Pt discharged to home with family. Discharge instructions given to pt and ex . Medications reviewed, follow up appointment with PCP will be needed this week.
[2023-04-23 14:16] LABS: T4 Thyroxine 6.1 mcg/dL (5.9-10.3)
--- NOTE | 2023-04-25 08:37 | PC.NURSE ---
discharge call back attempted, no answer
--- NOTE | 2023-04-29 09:15 | PC.NURSE ---
unable to contact for dc follow up call
== END 2023-04-21 15:00 | disposition home or self-care (01) ==
LOC: CHSED 08:28 → CHS2ND 10:04
PROVIDERS: Emergency Medicine; Nurse Practitioner Acute Care; Admitting Provider Internal Medicine; Emergency Provider Emergency Medicine; PCP Physician Assistant; Visit Provider Internal Medicine
DX: R10.9 Unspecified abdominal pain (principal); I10 Essential (primary) hypertension; E03.9 Hypothyroidism, unspecified; K44.9 Diaphragmatic hernia without obstruction or gangrene; R41.82 Altered mental status, unspecified; T42.4X5A Adverse effect of benzodiazepines, initial encounter; F32.A Depression, unspecified; Z80.0 Family history of malignant neoplasm of digestive organs; Z98.84 Bariatric surgery status; Z90.49 Acquired absence of other specified parts of digestive tract
CPT/HCPCS: 36415; 71045; 74018; 74177; 80053; 81001; 82607; 82746; 83540; 83550; 83605; 83690; 83735; 84436; 84481; 85025; 85610; 85730; 96361; 96365; 96366; 96367; 96375; 96376; 99285; A9270; G0378; J0696; J1756; J1885; J2060; J2270; J2543; J7030; J7050; Q9967

== ENCOUNTER 2023-04-27 12:11 | Emergency (ER) | payer MEDICARE, SELFPAY ==
[2023-04-27] VITALS (23 sets, daily range): BP systolic 80–107; BP diastolic 43–68; PULSE 58–92; RESP 16–26; TEMP 36.6–37; O2SAT 89–98
--- NOTE | ~2023-04-27 | XR_ITS ---
XR chest 1V DATE: 04/27/2023 13:51 INDICATION: Congestion, weakness, nausea TECHNIQUE: PA chest COMPARISON: 04/20/2023 portable AP chest FINDINGS: There are patchy infiltrates and/or atelectasis in the lower lung zones. There are diminish ed bilateral infiltrates since 04/20/2023. Heart size is within normal range. No hilar or mediastinal enlargement is noted. No pleural effusion or pulmonary vascular congestion or pneumothorax is evident. Diffuse osteopenia. IMPRESSION: Bilateral lower lung infiltrate or atelectasis; diminished lung infiltrates or atelectasi s since 04/20/2023 Reviewed, dictated and finalized at [facility]. IMPRESSION: Bilateral lower lung infiltrate or atelectasis; diminished lung inf iltrates or atelectasis since 04/20/2023
--- NOTE | ~2023-04-27 | CT_ITS ---
EXAMINATION: CT abdomen pelvis w con DATE: 04/27/2023 13:51 INDICATION: Lateral abdominal pain, increased weakness. Nausea. TECHNIQUE: Computed tomography (CT) of the abdomen and pelvis was performed with 100 CC Omnipaque 350 intravenous contrast. Automated exposure control and iterative reconstruction technique were employe d. Exam dose: 429.94 mGy-cm total exam DLP. COMPARISON: 04/20/2023 KUB 09/13/2021 CTA chest FINDINGS: There is discoid atelectasis and/or scarring involving the lung bases including middle lobe , lingula and both lower lobes. Cardiomegaly. No pericardial or pleural effusion. Small sliding hiatal hernia. Status post cholecystectomy. There is chronic intrahepatic and extrahepatic bile duct dilatation, the common bile duct measuring a s much as 1.5 cm diameter, not significant changed since 09/13/2021 CTA chest examination. There is mi ld pancreatic duct dilatation, measuring up to 4.9 mm diameter. Consider MRCP for further evaluation if clinically appropriate. No hepatic, splenic, pancreatic, and adrenal space-occupying mass lesion is evident. Approximately 2.8 cm right renal cyst There is mild irregularity of both renal outlines suggesting bilateral chronic pyelonephritis. No uri nary tract calculus or hydroureteronephrosis. The urinary bladder, uterus and adnexal areas appear un remarkable. There is atherosclerotic calcification but normal caliber of the abdominal aorta. No intraperitoneal or retroperitoneal or pelvic mass lesion or adenopathy is noted. There is mild ascites, increased since 04/20/2023. There is postoperative change of the stomach and s mall bowel apparently due to gastric bypass surgery. There is thickening of the wall of the gastric antrum. There is mild intraperitoneal free air. If the re is been no recent surgical intervention, consider ruptured hollow viscus such as perforated gastri c or duodenal ulcer. There is a prominent amount of fecal material in the colon. There are some fluid containing small bow el segments with air-fluid levels but no abnormal dilatation of the small or large bowel. Multiple fracture deformities of the thoracic and lumbar spine, most prominent at L1 as on 04/19/2023 . Multilevel degenerative disc disease of lumbar spine, most severe at L4-5. There is degenerative velázquez ges apophyseal joints with associated grade 1 anterolisthesis at L4-5. No suspicious osteolytic or osteoblastic lesions are noted. IMPRESSION: Interval increased mild ascites since 04/19/2023 Thickening of the wall of the gastric antrum. There is mild intraperitoneal free air. If there is bee n no recent surgical intervention, consider ruptured hollow viscus including possible perforated geovanni patricia or duodenal ulcer. 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 Roblero telephoned the finding of mild intraperitoneal free air and suspected ruptured hollow viscus on 04/27/2023 at 1446 hours to emergency room physician Dr. Mills. Reviewed, dictated and finalized at [facility]. Reviewed, dictated and finalized at [facility]. IMPRESSION: Interval increased mild ascites since 04/19/2023 Thickening of the wall of the gastric antrum. There is mild intraperitoneal gela e air. If there is been no recent surgical intervention, consider ruptured melissa ow viscus including possible perforated gastric or duodenal ulcer. 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 Roblero telephoned the finding of mild intraperitoneal free air and suspected ruptured hollow viscus on 04/27/2023 at 1446 hours to emergency shrelyn
--- NOTE | 2023-04-27 12:29 | ECG_ITS ---
Measurements Intervals Pierz Rate: 74 P: 38 NJ: 158 QRS: 38 QRSD: 88 T: 51 QT: 422 QTc: 470 Interpretive Statements SINUS RHYTHM NONSPECIFIC T-WAVE ABNORMALITY BORDERLINE ECG COMPARED TO ECG 09/13/2021 09:09:29 T-WAVE ABNORMALITY NOW PRESENT Electronically Signed On 04-27-2023 14:29:06 CDT by Isai Pickett M.D.
[2023-04-27] MEDS: SODIUM CHLORIDE 0.9% IV 2,000 ML 999 ML IV CONT (12:47)
--- NOTE | 2023-04-27 12:51 | PC.NURSE ---
noted discoloration to right hand , previous iv stick per pt. pt requesting blood transfusion. explained would be determined with lab results. pt resting per cot. call [facility] in reach.
[2023-04-27 13:00] LABS: Hematocrit 34.4 % (35.0-42.0); Hemoglobin 11.3 g/dL (11.7-13.8); Mean Corpuscular HGB Conc 32.8 g/dL (32.0-36.0); Mean Corpuscular Volume 100.6 fL (78.0-102.0); Mean Platelet Volume 9.5 fl (9.2-11.8); Platelet Count Result 502 K/mm3 (150-420); Red Blood Count 3.42 M/mm3 (4.20-5.40); Red Cell Distribution Width 11.9 % (11.6-14.4)
[2023-04-27 13:02] LABS: White Blood Count 20.7 K/mm3 (4.8-10.8)
[2023-04-27 13:09] LABS: Band Neutrophils Percent 15 % (0-6); Basophils Percent Manual 0 % (0-1); Eosinophils Percent Manual 0 % (1-6); Lymphocytes Absolute Manual 1.86 K/mm3 (1.1-4.5); Lymphocytes Percent Manual 9 % (18-44); Metamyelocytes Percent 1 %; Monocytes Absolute Manual 0.62 K/mm3 (0.1-0.90); Monocytes Percent Manual 3 % (3-9); Myelocytes Percent 1 %; Neutrophils Percent Manual 71 % (46-73); Platelet Estimate Increased (Adequate); Total Cells Counted 100
[2023-04-27 13:13] LABS: Partial Thromboplastin Time 25.7 SEC (23.90-30.70); Prothrombin Time 10.9 Seconds (9.50-12.10)
[2023-04-27 13:14] LABS: Alanine Aminotransferase 28 U/L (14-59); Albumin Level 2.7 g/dL (3.4-5.0); Alkaline Phosphatase 97 U/L (46-116); Anion Gap 12 mmol/L (8-16); Aspartate Amino Transferase 18 U/L (15-37); Bilirubin,Total 0.6 mg/dL (0.00-1.00); Blood Urea Nitrogen 28 mg/dL (7-18); Calcium 9.1 mg/dL (8.5-10.1); Carbon Dioxide 25 mmol/L (21-32); Chloride 101 mmol/L (98-108); Estimated CRCL calculation 32 ml/min; Estimated Glomerular Filt Rate 41; Glucose 129 mg/dL (70-99); Lactic Acid Reflex 3.3 mmol/L (0.4-2.0); Osmolality Calculated 293 mOsm/kg (285-295); Potassium 4.1 mmol/L (3.5-5.1); Sodium 138 mmol/L (136-145); Total Protein 6.2 g/dL (6.4-8.2); Troponin I 6.6 ng/L (0.00-60.4)
[2023-04-27 13:15] LABS: CRP 6.6 mg/dL (0.0-0.9)
--- NOTE | 2023-04-27 13:22 | PC.NURSE ---
pt resting , eyes closed, warm blankets applied. call [facility] in reach. iv fluids infusing with no difficulty. no s/s of infiltration from site. pt denies need for bathroom at this time. explained need for urine specimen. pt voiced understanding.
[2023-04-27 13:30] LABS: Lipase 289 U/L (16-77)
--- NOTE | 2023-04-27 13:34 | PC.NURSE ---
pt assisted to bathroom , unable to urinate at this time. pt to xray for ct via wheelchair.
--- NOTE | 2023-04-27 15:07 | PC.NURSE ---
PATIENT UPDATED ON CT SCAN RESULTS, PATIENT STATES TO CALL [facility] AND SEE WHO COULD GET HER IN FIRST.
[2023-04-27 15:11] LABS: Influenza A QL RT-PCR Negative (Negative); Influenza B QL RT-PCR Negative (Negative); RSV RNA, RT-PCR Negative (Negative); SARS-CoV-2 RNA PCR Negative (Negative)
--- NOTE | 2023-04-27 15:11 | ED.ABDPAIN ---
HPI - Abdominal Pain General Chief Complaint: Abdominal Pain Stated Complaint: abdominal pain Time Seen by Provider: 04/27/23 12:11 Source: patient Mode of arrival: wheelchair Limitations: no limitations History of Present Illness HPI narrative: this is 72-year-old female with presents with abdominal pain bilateral upper abdominal discomfort started earlier today with no chest pain no shortness of breath no fever chills no nausea or vomiting no diarrhea constipation. Patient has a remote history of gastric bypass surgery in 1988, has a history of iron deficiency anemia hypothyroidism and depression. MD elicited complaint: abdominal pain Onset (ago): hour(s) Pain Consistency: constant Location: diffuse Severity: moderate Quality: aching Related Data Home Medications Medication Instructions Recorded Confirmed dextroamphetamine-amphetamine 7.5 15 mg PO BID 10/20/19 04/19/23 mg tablet hydrochlorothiazide 50 mg tablet 50 mg PO DAILY 10/20/19 04/19/23 levothyroxine 175 mcg tablet 175 mcg PO DAILY 01/25/23 04/19/23 paroxetine HCl 30 mg tablet 30 mg PO DAILY 01/25/23 04/19/23 quetiapine 25 mg tablet 20 mg PO HS 01/25/23 04/19/23 quetiapine 50 mg tablet 50 mg PO HS 01/25/23 04/19/23 Allergies Allergy/AdvReac Type Severity Reaction Status Date / Time No Known Allergies Allergy Verified 04/18/23 16:43 Review of Systems Review of Systems: All systems reviewed & are unremarkable except as noted in HPI and below PMFSH Past Medical History Medical History Depression Hypertension Hypothyroidism Surgical History Surgical History H/O bariatric surgery History of cholecystectomy Family History Family History Mother Hypertension Carcinoma of colon Social History Social History Smoking status: Never smoker Alcohol intake: never Alcohol use details: occasional Substance use: never Substance use type: does not use Gender identity (if verbalized by the patient): Female Spiritual care concerns: No Agree to blood products: Yes Exam Const: General: ill appearing Orientation/consciousness: patient oriented x3 Limitations: no limitations Eyes: Conjunctivae: conjunctivae normal Pupils: Equal, round and reactive pupils present Neck: Neck: normal visual inspection, no lymphadenopathy and no meningeal signs Chest: Chest palpation & inspection: normal inspection of the chest Resp: Effort & Inspection: normal respiratory effort Auscultation: clear to auscultation bilaterally Cardio: Rate: regular rate Rhythm: regular rhythm GI: GI Palp: Yes Soft to palpation and Yes Tenderness to palpation present (GI) Auscultation: Hypoactive bowel sounds present : General: Yes bladder normal to palpation Skin: General skin exam: normal color Rashes: no rashes Wounds: no wounds Neuro: General: patient oriented x3, moves all extremities and no meningeal signs Extrem: General: normal to inspection, no clubbing, cyanosis or edema and no pedal edema Psych: Mental Status: mental status grossly normal Affect: normal affect Course Course Emergency Course: Patient with some abdominal pain, CT scan shows acute abdomen with free air and possible ruptured viscus duodenal verses gastric, blood pressure currently 95/51 is receiving fluid bolus, and Zosyn antibiotics. Patient [place] [address] with lactic acid of 3.3 lipase of 289 and CRP of 6.6. Patient received IV fluids and IV antibiotics, spoke to surgeon on-call at [facility] which accepted patient through the ER for transfer. Vital Signs Vital signs: Vital Signs Temperature 36.9 C 04/27/23 12:16 Pulse Rate 84 04/27/23 12:16 Respiratory Rate 20 04/27/23 12:16 Blood Pressure 80/43 L 04/27/23 12:1
[2023-04-27] MEDS: PIPERACILLN/TAZ 3.375GM/NS50ML 3.375 GM/50 ML BAG IVPB (15:47)
[2023-04-27] MEDS: SODIUM CHLORIDE 0.9% IV 1,000 ML 999 ML IV CONT (15:52)
[2023-04-27 15:55] LABS: Reflex Lactic Acid Yes or No Add Lactic
== END 2023-04-27 16:00 | disposition short-term general hospital (02) ==
PROVIDERS: Emergency Provider Emergency Medicine; PCP Physician Assistant
DX: R10.10 Upper abdominal pain, unspecified (principal); I10 Essential (primary) hypertension; E03.9 Hypothyroidism, unspecified; Z20.822 Contact with and (suspected) exposure to COVID-19
CPT/HCPCS: 36415; 71045; 74177; 80053; 83605; 83690; 84484; 85025; 85610; 85730; 86140; 87040; 87637; 93005; 96361; 96374; 99285; J2543; J7030; Q9967

== ENCOUNTER 2023-05-06 02:12 | Emergency (ER) | payer MEDICARE, SELFPAY ==
[2023-05-06 02:23] VITALS: BP 149/70; PULSE 60; RESP 18; TEMP 37; O2SAT 99
--- NOTE | 2023-05-06 02:27 | ED.EYEPROB ---
HPI - Eye Problem General Chief complaint: Eye Problems Stated complaint: Eye complaint Time Seen by Provider: 05/06/23 02:15 Source: patient Mode of arrival: ambulatory Limitations: no limitations History of Present Illness HPI Narrative: patient is a 72-year-old female with right eye issues and having some pain this evening. Patient does not have any visual changes this evening. Patient is here for pain control of the right eye and right lower eyelid. She says she has macular degeneration and has seen an private eye in the past month and said that the macular degeneration has gotten worse. She has a plan to get some surgery on this right eye. She only wants pain control this evening. Patient came to the emergency room due to unable to sleep with the pain and just wants pain control. patient drove here and I am unable to give her anything narcotic at this time unless she gets a ride. Patient also had a peptic ulcer in the past week and was in another hospital so we cannot use NSAIDs. chief complaint: eye pain Onset (ago): hour(s) Onset description: gradual Duration: intermittent Location: right eye Eye Symptoms: burning and pain Place: home Mechanism: none Severity: moderate Severity scale (1-10): 5 If Pain, Quality: sharp, aching and throbbing Context: other ( Plans for right eye surgery in the near future) Associated symptoms: none Treatments Prior to Arrival: none Related Data Home Medications Medication Instructions Recorded Confirmed dextroamphetamine-amphetamine 7.5 15 mg PO BID 10/20/19 04/19/23 mg tablet hydrochlorothiazide 50 mg tablet 50 mg PO DAILY 10/20/19 04/19/23 levothyroxine 175 mcg tablet 175 mcg PO DAILY 01/25/23 04/19/23 paroxetine HCl 30 mg tablet 30 mg PO DAILY 01/25/23 04/19/23 quetiapine 25 mg tablet 20 mg PO HS 01/25/23 04/19/23 quetiapine 50 mg tablet 50 mg PO HS 01/25/23 04/19/23 Allergies Allergy/AdvReac Type Severity Reaction Status Date / Time No Known Allergies Allergy Verified 04/18/23 16:43 Review of Systems Review of Systems: All systems reviewed & are unremarkable except as noted in HPI and below Constitutional: Constitutional: Reports no additional constitutional complaints Eyes: Eyes: Reports no additional eye complaints ENT: Reports system reviewed and no additional complaints, except as documented Cardiovascular: Cardiovascular: Reports no additional cardiovascular complaints Respiratory: Respiratory: Reports no additional respiratory complaints Gastrointestinal: Gastrointestinal: Reports no additional gastrointestinal complaints Genitourinary: Genitourinary: Reports no additional female genitourinary complaints Musculoskeletal: Musculoskeletal: Reports no additional musculoskeletal complaints Integumentary/Breasts: Skin/Breast: Reports system reviewed and no additional complaints, except as docu Neurologic: Reports system reviewed and no additional complaints, except as documented Psychiatric: Psychiatric: Reports no additional psychiatric complaints Endocrine: Endocrine: Reports no additional endocrine complaints Hematologic/Lymphatic: Hematologic/Lymphatic: Reports no additional hematologic/lymphatic complaints Allergic/Immunologic: Allergic/Immunologic: Reports no additional allergic/immunologic complaints PMFSH Past Medical History Medical History Depression Hypertension Hypothyroidism Surgical History Surgical History H/O bariatric surgery History of cholecystectomy Family History Family History Mother Hypertension Carcinoma of colon Social History Social History Smoking status: Never smoker Alcohol intake: never Alcohol use details: occasional Substance use: never Substance use type: does not use
[2023-05-06 02:48] VITALS: BP 138/73; PULSE 75; RESP 18; TEMP 36.6; O2SAT 99
== END 2023-05-06 02:51 | disposition home or self-care (01) ==
PROVIDERS: Emergency Provider Emergency Medicine; PCP Physician Assistant
DX: H57.11 Ocular pain, right eye (principal); H02.89 Other specified disorders of eyelid; I10 Essential (primary) hypertension; E03.9 Hypothyroidism, unspecified
CPT/HCPCS: 99283

== ENCOUNTER 2023-06-23 15:25 | Emergency (ER) | payer MEDICARE, SELFPAY ==
[2023-06-23 15:25] VITALS: BP 136/76; PULSE 61; RESP 20; TEMP 36.4; O2SAT 94
--- NOTE | 2023-06-23 15:26 | ED.EYEPROB ---
HPI - Eye Problem General Chief complaint: Eye Problems Stated complaint: eye problem Time Seen by Provider: 06/23/23 15:26 Source: patient Mode of arrival: ambulatory Limitations: no limitations History of Present Illness HPI Narrative: Patient is a 73-year-old female with right eye complaint. She has been in the ER to see me before for similar complaint. Last time she only needed pain control as she was seeing an medical sales specialist already at the time. She has an appointment to see an medical sales specialist in July again at this time. chief complaint: eye pain and eye redness Onset (ago): day(s) Onset description: gradual Duration: constant Location: right eye Eye Symptoms: burning, redness and pain Place: home Mechanism: none Severity: moderate Severity scale (1-10): 4 If Pain, Quality: sharp Associated symptoms: none Treatments Prior to Arrival: none Related Data Home Medications Medication Instructions Recorded Confirmed dextroamphetamine-amphetamine 7.5 15 mg PO BID 10/20/19 04/19/23 mg tablet hydrochlorothiazide 50 mg tablet 50 mg PO DAILY 10/20/19 04/19/23 levothyroxine 175 mcg tablet 175 mcg PO DAILY 01/25/23 04/19/23 paroxetine HCl 30 mg tablet 30 mg PO DAILY 01/25/23 04/19/23 quetiapine 25 mg tablet 20 mg PO HS 01/25/23 04/19/23 quetiapine 50 mg tablet 50 mg PO HS 01/25/23 04/19/23 Allergies Allergy/AdvReac Type Severity Reaction Status Date / Time No Known Allergies Allergy Verified 04/18/23 16:43 Review of Systems Review of Systems: All systems reviewed & are unremarkable except as noted in HPI and below Constitutional: Constitutional: Reports no additional constitutional complaints Eyes: Eyes: Reports no additional eye complaints ENT: Reports system reviewed and no additional complaints, except as documented Cardiovascular: Cardiovascular: Reports no additional cardiovascular complaints Respiratory: Respiratory: Reports no additional respiratory complaints Gastrointestinal: Gastrointestinal: Reports no additional gastrointestinal complaints Genitourinary: Genitourinary: Reports no additional female genitourinary complaints Musculoskeletal: Musculoskeletal: Reports no additional musculoskeletal complaints Integumentary/Breasts: Skin/Breast: Reports system reviewed and no additional complaints, except as docu Neurologic: Reports system reviewed and no additional complaints, except as documented Psychiatric: Psychiatric: Reports no additional psychiatric complaints Endocrine: Endocrine: Reports no additional endocrine complaints Hematologic/Lymphatic: Hematologic/Lymphatic: Reports no additional hematologic/lymphatic complaints Allergic/Immunologic: Allergic/Immunologic: Reports no additional allergic/immunologic complaints PMFSH Past Medical History Medical History Depression Hypertension Hypothyroidism Surgical History Surgical History H/O bariatric surgery History of cholecystectomy Family History Family History Mother Hypertension Carcinoma of colon Social History Social History Smoking status: Never smoker Alcohol intake: never Alcohol use details: occasional Substance use: never Substance use type: does not use Gender identity (if verbalized by the patient): Female Spiritual care concerns: No Agree to blood products: Yes Exam Const: General: healthy appearing Nutritional Appearance: well nourished Orientation/consciousness: patient oriented x3 HENMT: Head: normal to inspection Ears: external ears normal Face/Nose/Sinus: Normal external nose present Eyes: Conjunctivae: abnormal conjunctivae and conjunctival abnormality ( Red conjunctiva with crusting on the lids) right Pupils: Equal, round and reactive pupils present E
[2023-06-23] MEDS: NEOMYCIN/POLYMYXIN/HYDROCORT 7.5 ML EYE DROPS (*BKC) 2 DROP RIGHT EYE (15:57)
== END 2023-06-23 16:00 | disposition home or self-care (01) ==
PROVIDERS: Emergency Provider Emergency Medicine; PCP Physician Assistant
DX: H10.31 Unspecified acute conjunctivitis, right eye (principal); I10 Essential (primary) hypertension; E03.9 Hypothyroidism, unspecified
CPT/HCPCS: 99283; A9270

== ENCOUNTER 2023-06-27 14:40 | Emergency (ER) | payer MEDICARE, SELFPAY ==
--- NOTE | 2023-06-27 14:42 | ED.EYEPROB ---
HPI - Eye Problem General Chief complaint: Eye Problems Stated complaint: Eye pain Time Seen by Provider: 06/27/23 14:41 Source: patient Mode of arrival: ambulatory Limitations: no limitations History of Present Illness HPI Narrative: Shelley is a 73-year-old female patient presenting to the clinic today with complaints right eye pain times 3-4 days. She reports she does have a history of macular degeneration. Has a sclera buccal that is eroding into her conjunctiva. She has an appointment with an hygiene coordinator sometime in July but she has a very poor historian. Her eye is all red and painful. Denies any visual changes. No fever or chills. Related Data Home Medications Medication Instructions Recorded Confirmed dextroamphetamine-amphetamine 7.5 15 mg PO BID 10/20/19 06/27/23 mg tablet hydrochlorothiazide 50 mg tablet 50 mg PO DAILY 10/20/19 06/27/23 levothyroxine 175 mcg tablet 175 mcg PO DAILY 01/25/23 06/27/23 paroxetine HCl 30 mg tablet 30 mg PO DAILY 01/25/23 06/27/23 quetiapine 25 mg tablet 20 mg PO HS 01/25/23 06/27/23 quetiapine 50 mg tablet 50 mg PO HS 01/25/23 06/27/23 sucralfate 1 gram tablet 1 g PO QID 06/27/23 06/27/23 Allergies Allergy/AdvReac Type Severity Reaction Status Date / Time NSAIDS (Non-Steroidal AdvReac Gastrointestinal Verified 06/27/23 14:48 Anti-Inflamma Upset Review of Systems Review of Systems: Pertinent positives per HPI. Patient denies any fever, chills, rash, headache, visual changes, dizziness, cough, runny nose, sore throat, shortness of breath, chest pain, palpitations, nausea, vomiting, diarrhea, constipation, abdominal pain, or any urinary issues. [facility] Past Medical History Medical History Depression Hypertension Hypothyroidism Surgical History Surgical History H/O bariatric surgery History of cholecystectomy Family History Family History Mother Hypertension Carcinoma of colon Social History Social History Smoking status: Never smoker Alcohol intake: never Alcohol use details: occasional Substance use: never Substance use type: does not use Gender identity (if verbalized by the patient): Female Spiritual care concerns: No Agree to blood products: Yes Comments At the time of my signature, I reviewed and agree with the nursing past medical, surgical, social, and family history. There is no relevant family history pertinent to the patient complaint. Exam Narrative: General: Well-developed, well nourished, in no apparent distress Head: Normocephalic, atraumatic Eyes: Pupils equally round and reactive to light bilaterally, EOM intact, left sclera and conjunctive clear, no discharge, lids normal, right sclera and conjunctiva injected with rubber/plastic piece noted to the right cornea/conjunctiva. Ears: TMs intact and clear, ear canals clear, no drainage, grossly hearing normal. Nose: Nares patent, no discharge, no inflammation, no sinus tenderness. Mouth: Oropharynx without lesions or masses, good dentition, MMM. Neck: Supple, trachea midline, no enlargement of anterior or posterior cervical nodes, no thyroid masses or goiter palpable. Cardio: Regular rate and rhythm, s1 and s2 normal, no murmur appreciated. Resp: Clear to auscultation bilaterally anteriorly and posteriorly, no rhonchi, rales, wheezing or rubs Course Course Emergency Course: Portions of this record may have been created with voice recognition software. Level of Care: Express Care Visit Vital Signs Vital signs: Vital signs reviewed MDM - Eye Problem MDM Narrative Medical decision making narrative: At the time of visit patient is resting comfortably on the exam table. Patient appears to be nontoxic. Patient reporti
[2023-06-27 14:56] VITALS: BP 129/84; PULSE 68; RESP 16; TEMP 36.4; O2SAT 100
== END 2023-06-27 15:44 | disposition home or self-care (01) ==
PROVIDERS: Emergency Provider Nurse Practitioner Family
DX: H57.11 Ocular pain, right eye (principal); E03.9 Hypothyroidism, unspecified; I10 Essential (primary) hypertension
CPT/HCPCS: 99213; G0463

== ENCOUNTER 2023-10-19 05:47 | Emergency (ER) | payer MEDICARE, SELFPAY ==
[2023-10-19] VITALS (7 sets, daily range): BP systolic 111–135; BP diastolic 57–66; PULSE 60–84; RESP 18–21; TEMP 36.6–37.2; O2SAT 94–98
--- NOTE | 2023-10-19 06:11 | ECG_ITS ---
SEE SCANNED COPY FOR CONFIRMED REPORT MTDD
--- NOTE | 2023-10-19 06:11 | ED.GENADULT ---
HPI - General Adult General Chief complaint: Anxiety Stated complaint: Stress Time Seen by Provider: 10/19/23 06:06 History of Present Illness HPI narrative: The patient is a 73-year-old woman with history of anxiety depression hypertension hypothyroidism. She is under much stress lately and has had insomnia for the last 3 days and to feelings of anxiety and depression. Three days ago she was in a court case that did not go her way. She states she could not afford a wire and did not voice or pain in. This morning, at 5:00 a.m., 1 hour ago, she developed transient numbness in the left arm associated with some discomfort in her chest. She is worried about this being a heart attack. Symptoms have decreased significantly if not resolved. No abdominal pain. No nausea or vomiting. No urinary symptoms such as urgency frequency or dysuria. No fevers or chills or diaphoresis. No URI symptoms. She has seen a psychiatrist before. Not suicidal or homicidal or hallucinating. Related Data Home Medications Medication Instructions Recorded Confirmed dextroamphetamine-amphetamine 7.5 15 mg PO BID 10/20/19 06/27/23 mg tablet hydrochlorothiazide 50 mg tablet 50 mg PO DAILY 10/20/19 06/27/23 levothyroxine 175 mcg tablet 175 mcg PO DAILY 01/25/23 06/27/23 paroxetine HCl 30 mg tablet 30 mg PO DAILY 01/25/23 06/27/23 quetiapine 25 mg tablet 20 mg PO HS 01/25/23 06/27/23 quetiapine 50 mg tablet 50 mg PO HS 01/25/23 06/27/23 sucralfate 1 gram tablet 1 g PO QID 06/27/23 06/27/23 Allergies Allergy/AdvReac Type Severity Reaction Status Date / Time NSAIDS (Non-Steroidal AdvReac Gastrointestinal Verified 06/27/23 14:48 Anti-Inflamma Upset Review of Systems Review of Systems: All systems reviewed & are unremarkable except as noted in HPI and below Constitutional: Constitutional: Denies chills, Denies excessive sweating, Denies fatigue, Denies fever(s), Denies headache(s) and Denies weakness Eyes: Eyes: Denies change in vision and Denies photophobia ENT: Denies dysphagia, Denies dizziness, Denies headache(s), Denies lip swelling, Denies nasal congestion, Denies sore throat and Denies tongue swelling Cardiovascular: Cardiovascular: Denies chest pain, Denies syncope, Denies rapid heart rate and Denies dyspnea Respiratory: Respiratory: Denies cough, Denies dyspnea and Denies wheezing Gastrointestinal: Gastrointestinal: Denies abdominal pain, Denies constipation, Denies dysphagia, Denies diarrhea, Denies nausea and Denies vomiting Genitourinary: Genitourinary: Denies hematuria, Denies urinary frequency, Denies dysuria and Denies urinary urgency Musculoskeletal: Musculoskeletal: Denies back pain, Denies myalgias, Denies arthralgias, Denies joint swelling and Denies numbness Integumentary/Breasts: Skin/Breast: Denies pruritus, Denies erythema and Denies rash Neurologic: Denies confusion, Denies dizziness, Denies syncope, Denies headache(s), Denies focal weakness, Denies numbness and Denies weakness Psychiatric: Psychiatric: Reports anxiety and Denies confusion Endocrine: Endocrine: Denies excessive sweating and Denies fatigue Hematologic/Lymphatic: Hematologic/Lymphatic: Denies easy bleeding and Denies easy bruising Allergic/Immunologic: Allergic/Immunologic: Denies lip swelling, Denies tongue swelling and Denies wheezing PMFSH Past Medical History Medical History Depression Hypertension Hypothyroidism Surgical History Surgical History H/O bariatric surgery History of cholecystectomy Family History Family History Mother Hypertension Carcinoma of colon Social History Social History Smoking status: Never smoker Alcohol intake: never Alcohol use details: occasional Substance use: never Substance use type: d
[2023-10-19 06:25] LABS: Appearance Urine Clear (Clear); Bilirubin Urine Negative (Negative); Blood Urine Negative (Negative); Color Urine Light Yellow (Yellow); Glucose Urine UA Negative (Negative); Ketones Urine Negative (Negative); Leukocyte Esterase Ur Trace LEU/UL (Negative); Nitrate Urine Negative (Negative); Protein Urine Negative (Negative); Urobilinogen Urine 0.2 mg/dL (0.2-1.0)
[2023-10-19 06:26] LABS: Add Urine Microscopic? YES
[2023-10-19 06:27] LABS: Bacteria Urine 1+ /hpf; RBC Urine None seen /hpf (0-2); Squamous Epithelial Cell Urine Few /hpf (Few); WBC Urine 0-3 /hpf (0-3)
[2023-10-19 06:33] LABS: Amphetamine Screen Urine Positive (Negative); Barbiturate Screen Urine Negative (Negative); Benzodiazepines Screen Urine Negative (Negative); Cannabinoid Screen Urine Negative (Negative); Cocaine Screen Urine Negative (Negative); Methadone Screen Urine Negative (Negative); Opiate Screen Urine Negative (Negative); Phencyclidine Screen Urine Negative (Negative)
[2023-10-19 06:38] LABS: Basophils Absolute Auto 0.03 K/mm3 (0.00-0.10); Basophils Percent Auto 0.4 % (0.0-1.0); Eosinophils Absolute Auto 0.13 K/mm3 (0.02-0.50); Eosinophils Percent Auto 1.8 % (1.0-6.0); Hemoglobin 11.3 g/dL (11.7-13.8); Immature Granulocyte Absolute 0.02 K/mm3 (0.00-0.00); Immature Granulocyte Percent A 0.3 % (0.0-0.0); Lymphocytes Absolute Auto 2.24 K/mm3 (1.10-4.50); Lymphocytes Percent Auto 31.4 % (18.0-42.0); Mean Corpuscular HGB Conc 32.3 g/dL (32-36); Mean Corpuscular Hemoglobin 32.6 pg (27.0-31.0); Mean Corpuscular Volume 100.9 fL (78.0-102.0); Mean Platelet Volume 9.5 fl (9.2-11.8); Monocytes Absolute Auto 0.77 K/mm3 (0.10-0.90); Monocytes Percent Auto 10.8 % (2.0-11.0); Neutrophils Absolute Auto 3.95 K/mm3 (1.70-7.20); Neutrophils Percent Auto 55.3 % (50.0-70.0); Platelet Count Result 253 K/mm3 (150-420); Red Blood Count 3.47 M/mm3 (4.20-5.40); Red Cell Distribution Width 11.2 % (11.6-14.4); White Blood Count 7.1 K/mm3 (4.8-10.8)
--- NOTE | 2023-10-19 06:44 | PC.NURSE ---
Pt resting, playing on her cell phone, has no c/o pain. Awaiting lab results. VSS, call santana at pt side.
[2023-10-19 06:54] LABS: Alanine Aminotransferase 23 U/L (14-59); Albumin Level 3.2 g/dL (3.4-5.0); Alkaline Phosphatase 86 U/L (46-116); Anion Gap 5 mmol/L (4-12); Aspartate Amino Transferase 19 U/L (15-37); Bilirubin,Total 0.3 mg/dL (0.00-1.00); Blood Urea Nitrogen 39 mg/dL (7-18); Calcium 8.6 mg/dL (8.5-10.1); Carbon Dioxide 32 mmol/L (21-32); Chloride 103 mmol/L (98-108); Estimated CRCL calculation 35 ml/min; Estimated Glomerular Filt Rate 51; Glucose 89 mg/dL (70-99); Osmolality Calculated 298 mOsm/kg (285-295); Potassium 3.6 mmol/L (3.5-5.1); Sodium 140 mmol/L (136-145); Total Protein 6.8 g/dL (6.4-8.2); Troponin I 5.6 ng/L (0.00-60.4)
--- NOTE | 2023-10-19 06:58 | PC.NURSE ---
Report given to Earline Hutchison
[2023-10-19] MEDS: CEPHALEXIN 500 MG CAPSULE PO (07:07)
== END 2023-10-19 07:19 | disposition home or self-care (01) ==
PROVIDERS: Emergency Provider Emergency Medicine
DX: F41.9 Anxiety disorder, unspecified (principal); R07.9 Chest pain, unspecified; N39.0 Urinary tract infection, site not specified; F32.A Depression, unspecified; I10 Essential (primary) hypertension; E03.9 Hypothyroidism, unspecified; Z98.84 Bariatric surgery status; Z79.899 Other long term (current) drug therapy
CPT/HCPCS: 36415; 80053; 80307; 81001; 84484; 85025; 93005; 99284; A9270

== ENCOUNTER 2023-11-04 11:14 | Emergency (ER) | payer MEDICARE, SELFPAY ==
[2023-11-04 11:14] VITALS: BP 155/73; PULSE 75; RESP 17; TEMP 36.3; O2SAT 99
--- NOTE | 2023-11-04 11:27 | ED.NECK ---
HPI - Neck Pain/Injury General Chief Complaint: Neck Pain/Injury Stated Complaint: neck pain Time Seen by Provider: 11/04/23 11:27 Source: patient Mode of arrival: ambulatory History of Present Illness HPI Narrative: 73 years old white female drove herself to the emergency room complaining of left-sided neck dull aching pain for the last 1 and have weeks, worse when she turns her head to either direction, and certain movement and position. Better with wet rag on her neck. She denies any fever, chills, nausea, vomiting, trouble swallowing or breathing. Patient have a lot of stress lately and would like to have a prescription of Xanax Related Data Home Medications Medication Instructions Recorded Confirmed dextroamphetamine-amphetamine 7.5 15 mg PO BID 10/20/19 06/27/23 mg tablet hydrochlorothiazide 50 mg tablet 50 mg PO DAILY 10/20/19 06/27/23 levothyroxine 175 mcg tablet 175 mcg PO DAILY 01/25/23 06/27/23 paroxetine HCl 30 mg tablet 30 mg PO DAILY 01/25/23 06/27/23 quetiapine 25 mg tablet 20 mg PO HS 01/25/23 06/27/23 quetiapine 50 mg tablet 50 mg PO HS 01/25/23 06/27/23 sucralfate 1 gram tablet 1 g PO QID 06/27/23 06/27/23 Allergies Allergy/AdvReac Type Severity Reaction Status Date / Time NSAIDS (Non-Steroidal AdvReac Gastrointestinal Verified 11/04/23 11:16 Anti-Inflamma Upset Review of Systems Review of Systems: All systems reviewed & are unremarkable except as noted in HPI and below PMFSH Past Medical History Medical History Depression Hypertension Hypothyroidism Surgical History Surgical History H/O bariatric surgery History of cholecystectomy Family History Family History Mother Hypertension Carcinoma of colon Social History Social History Smoking status: Never smoker Alcohol intake: never Alcohol use details: occasional Substance use: never Substance use type: does not use Gender identity (if verbalized by the patient): Female Spiritual care concerns: No Agree to blood products: Yes Exam Narrative: General appearance: Well-developed, well-nourished Skin: Normal color Head: Normocephalic, nontraumatic Eyes: Clear conjunctiva ENT: Oropharynx normal, ears normal, nose normal Neck: Supple, mild diffuse tenderness left side of neck and left upper back with palpation, no rash, no swelling, no lymph nodes Chest and respiratory: Airway patent, no respiratory distress, no accessory muscle use Heart: Regular rate/rhythm Abdomen: Soft, nontender, no organomegaly, quiet bowel sounds Vascular: Normal peripheral pulses, normal capillary refill. 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 is normal as tested, no gross motor deficit Course Vital Signs Vital signs: Vital Signs Temperature 36.3 C L 11/04/23 11:14 Pulse Rate 75 11/04/23 11:14 Respiratory Rate 17 11/04/23 11:14 Blood Pressure 155/73 H 11/04/23 11:14 Pulse Oximetry 99 11/04/23 11:14 Oxygen Delivery Room Air 11/04/23 11:14 Temperature 36.3 C L 11/04/23 11:14 Pulse Rate 75 11/04/23 11:14 Respiratory Rate 17 11/04/23 11:14 Blood Pressure 155/73 H 11/04/23 11:14 Pulse Oximetry 99 11/04/23 11:14 Oxygen Delivery Room Air 11/04/23 11:14 MDM - Neck Pain/Injury MDM Narrative Medical decision making narrative: musculoskeletal pain is my concern Critical Care Time Critical Care Time Critical Care Time: No Discharge Plan D
[2023-11-04 11:55] VITALS: BP 155/73; PULSE 75; RESP 17; TEMP 36.3; O2SAT 99
== END 2023-11-04 11:55 | disposition home or self-care (01) ==
LOC: CHSED 11:30
PROVIDERS: Emergency Provider Emergency Medicine
DX: M54.2 Cervicalgia (principal); I10 Essential (primary) hypertension; E03.9 Hypothyroidism, unspecified; F32.A Depression, unspecified
CPT/HCPCS: 99283

== ENCOUNTER 2023-11-24 15:13 | Emergency (ER) | payer MEDICARE, SELFPAY ==
[2023-11-24 15:23] VITALS: BP 154/75; PULSE 70; RESP 20; TEMP 36.7; O2SAT 98
--- NOTE | 2023-11-24 15:51 | ED.ANXIETY ---
HPI - Anxiety General Chief Complaint: Unspecified Stated Complaint: arm numbness Time Seen by Provider: 11/24/23 15:22 Source: patient Mode of arrival: ambulatory Limitations: no limitations History of Present Illness HPI narrative: Patient is a 73-year-old female with lots of anxiety complaints and some bilateral arm tingling and numbness. She has recently had a court case which is giving her lots of distress. She has frequent to the emergency room for many psychological related changes. MD complaint: anxiety Onset (ago): month(s) (2-3) Symptoms: extremity numbness/tingling Severity: mild Quality: intermittent Place: home History of similar episodes: Yes Provoking factors: emotional stress ( Recent court case which has been recurrent stress for her over many months) Relieving factors: nothing Exacerbating factors: thinking about event Associated symptoms: denies other symptoms Related Data Home Medications Medication Instructions Recorded Confirmed dextroamphetamine-amphetamine 7.5 20 mg PO BID 10/20/19 06/27/23 mg tablet hydrochlorothiazide 50 mg tablet 50 mg PO DAILY 10/20/19 06/27/23 levothyroxine 175 mcg tablet 175 mcg PO DAILY 01/25/23 06/27/23 paroxetine HCl 30 mg tablet 30 mg PO DAILY 01/25/23 06/27/23 quetiapine 25 mg tablet 20 mg PO HS 01/25/23 06/27/23 quetiapine 50 mg tablet 200 mg PO HS 01/25/23 06/27/23 sucralfate 1 gram tablet 1 g PO QID 06/27/23 06/27/23 Allergies Allergy/AdvReac Type Severity Reaction Status Date / Time NSAIDS (Non-Steroidal AdvReac Gastrointestinal Verified 11/24/23 15:38 Anti-Inflamma Upset Review of Systems Review of Systems: All systems reviewed & are unremarkable except as noted in HPI and below Constitutional: Constitutional: Reports no additional constitutional complaints Eyes: Eyes: Reports no additional eye complaints ENT: Reports system reviewed and no additional complaints, except as documented Cardiovascular: Cardiovascular: Reports no additional cardiovascular complaints Respiratory: Respiratory: Reports no additional respiratory complaints Gastrointestinal: Gastrointestinal: Reports no additional gastrointestinal complaints Genitourinary: Genitourinary: Reports no additional female genitourinary complaints Musculoskeletal: Musculoskeletal: Reports no additional musculoskeletal complaints Integumentary/Breasts: Skin/Breast: Reports system reviewed and no additional complaints, except as docu Neurologic: Reports system reviewed and no additional complaints, except as documented Psychiatric: Psychiatric: Reports no additional psychiatric complaints Endocrine: Endocrine: Reports no additional endocrine complaints Hematologic/Lymphatic: Hematologic/Lymphatic: Reports no additional hematologic/lymphatic complaints Allergic/Immunologic: Allergic/Immunologic: Reports no additional allergic/immunologic complaints PMFSH Past Medical History Medical History Depression Hypertension Hypothyroidism Surgical History Surgical History H/O bariatric surgery History of cholecystectomy Family History Family History Mother Hypertension Carcinoma of colon Social History Social History Smoking status: Never smoker Alcohol intake: never Alcohol use details: occasional Substance use: never Substance use type: does not use Gender identity (if verbalized by the patient): Female Spiritual care concerns: No Agree to blood products: Yes Exam Const: General: healthy appearing Nutritional Appearance: well nourished Orientation/consciousness: patient oriented x3 HENMT: Head: normal to inspection Ears: external ears normal Face/Nose/Sinus: Normal external nose present Eyes: Conjunctivae: conjunctivae normal Pupil
== END 2023-11-24 16:12 | disposition home or self-care (01) ==
PROVIDERS: Emergency Provider Emergency Medicine
DX: F43.0 Acute stress reaction (principal); F41.9 Anxiety disorder, unspecified; I10 Essential (primary) hypertension; E03.9 Hypothyroidism, unspecified
CPT/HCPCS: 99281

== ENCOUNTER 2024-02-27 14:33 | Emergency (ER) | payer MEDICARE, SELFPAY ==
[2024-02-27 14:33] VITALS: BP 121/70; PULSE 82; RESP 20; TEMP 36.5; O2SAT 95
--- NOTE | 2024-02-27 14:53 | ED.HA ---
HPI - Headache General Chief Complaint: Headache Stated Complaint: headache Source: patient Mode of arrival: ambulatory Limitations: no limitations History of Present Illness HPI Narrative: this is a 73-year-old female that presents with headache with nausea currently with an episode of vomiting and some loose stools with no fever chills no shortness of breath no neck stiffness no chest pain no dysuria. MD elicited complaint: headache Onset (ago): day(s) Onset description: gradually Location: occipital Severity: moderate Quality & Timing: aching Related Data Home Medications Medication Instructions Recorded Confirmed dextroamphetamine-amphetamine 7.5 20 mg PO BID 10/20/19 06/27/23 mg tablet hydrochlorothiazide 50 mg tablet 50 mg PO DAILY 10/20/19 06/27/23 levothyroxine 175 mcg tablet 175 mcg PO DAILY 01/25/23 06/27/23 paroxetine HCl 30 mg tablet 30 mg PO DAILY 01/25/23 06/27/23 quetiapine 25 mg tablet 20 mg PO HS 01/25/23 06/27/23 quetiapine 50 mg tablet 200 mg PO HS 01/25/23 06/27/23 sucralfate 1 gram tablet 1 g PO QID 06/27/23 06/27/23 Allergies Allergy/AdvReac Type Severity Reaction Status Date / Time NSAIDS (Non-Steroidal AdvReac Gastrointestinal Verified 02/27/24 14:40 Anti-Inflamma Upset Review of Systems Review of Systems: All systems reviewed & are unremarkable except as noted in HPI and below PMFSH Past Medical History Medical History Depression Hypertension Hypothyroidism Surgical History Surgical History H/O bariatric surgery History of cholecystectomy Family History Family History Mother Hypertension Carcinoma of colon Social History Social History Smoking status: Never smoker Alcohol intake: never Alcohol use details: occasional Substance use: never Substance use type: does not use Gender identity (if verbalized by the patient): Female Spiritual care concerns: No Agree to blood products: Yes Exam Const: General: healthy appearing and no acute distress Nutritional Appearance: well nourished HENMT: Head: normal to inspection Face and sinus: normal facial exam Eyes: Conjunctivae: conjunctivae normal Direct Ophthalmoscopy: no photophobia Neck: Neck: normal visual inspection Chest: Chest palpation & inspection: normal inspection of the chest Resp: Effort & Inspection: normal respiratory effort Auscultation: clear to auscultation bilaterally Cardio: Rate: regular rate Rhythm: regular rhythm GI: GI Palp: Yes Soft to palpation Auscultation: normal bowel sounds Skin: General skin exam: normal color Rashes: no rashes Neuro: General: patient oriented x3 Cranial nerves: Yes Nystagmus not present Course Course Emergency Course: Patient received a dose of Toradol and Zofran and will give the patient a note for to be off work today. Vital Signs Vital signs: Vital Signs Temperature 36.5 C 02/27/24 14:33 Pulse Rate 82 02/27/24 14:33 Respiratory Rate 20 02/27/24 14:33 Blood Pressure 121/70 02/27/24 14:33 Pulse Oximetry 95 02/27/24 14:33 Oxygen Delivery Room Air 02/27/24 14:33 Temperature 36.5 C 02/27/24 14:33 Pulse Rate 82 02/27/24 14:33 Respiratory Rate 20 02/27/24 14:33 Blood Pressure 121/70 02/27/24 14:33 Pulse Oximetry 95 02/27/24 14:33 Oxygen Delivery Room Air 02/27/24 14:33 Critical Care Time Critical Care Time Critical Care Time: No Discharge Plan Discharge Clinical Impression: Headache, Gastroenteritis Patient Disposition: Home, Self-Care Condition: Stable Instructions: Antibiotic Form, Gastroenteritis (ED), Acute Headache (ED) Additional Instructions: advised to take medicine as prescribed follow up primary within 1 to 2 weeks for further evaluat
[2024-02-27] MEDS: KETOROLAC 30 MG/ML VIAL (*BKC) IM (14:54)
[2024-02-27] MEDS: ONDANSETRON HCL ODT 4 MG TABLET PO (14:55)
== END 2024-02-27 15:13 | disposition home or self-care (01) ==
PROVIDERS: Emergency Provider Emergency Medicine; PCP Nurse Practitioner Family
DX: K52.9 Noninfective gastroenteritis and colitis, unspecified (principal); R51.9 Headache, unspecified; I10 Essential (primary) hypertension; E03.9 Hypothyroidism, unspecified
CPT/HCPCS: 96372; 99283; A9270; J1885

== ENCOUNTER 2024-03-27 19:40 | Emergency (ER) | payer MEDICARE, SELFPAY ==
--- NOTE | ~2024-03-27 | CT_ITS ---
EXAMINATION: CT brain wo con DATE: 03/27/2024 20:21 INDICATION: POSTERIOR NECK PAIN RADIATING INTO BASE OF SKULL. . TECHNIQUE: Computed tomography (CT) of the head was performed without intravenous contrast. The mA wa s adjusted according to patient size. Iterative reconstruction technique was employed. The dose-lengt h product was 605.33 mGy-cm. COMPARISON: 08/13/2021. FINDINGS: No acute intracranial hemorrhage or extra-axial fluid collection. No hydrocephalus, mass, or herniation. No acute ischemic infarct. Unremarkable dural venous sinus attenuation. No acute osseous abnormality. The aerated spaces are clear. Mild atrophy and chronic white matter change. Atherosclerotic intracranial calcification. Prior scler al buckle procedure on the right. Small old left basal ganglia lacunar infarcts. Left basal ganglia c alcification. IMPRESSION: No acute intracranial process. Reviewed, dictated and finalized at location K.
--- NOTE | ~2024-03-27 | CT_ITS ---
EXAMINATION: CT cervical spine wo con DATE: 03/27/2024 20:21 INDICATION: POSTERIOR NECK PAIN RADIATING INTO BASE OF SKULL. NKI. TECHNIQUE: Computed tomography (CT) of the cervical spine was performed without intravenous contrast. Automated exposure control and iterative reconstruction technique were employed. The dose-length pro duct was 175.98 mGy-cm. COMPARISON: CT cervical and thoracic spine 02/24/2014. FINDINGS: Vertebral Body Alignment: Trace anterolistheses at C4-5 and C5-6, unchanged. Craniocervical and atlantoaxial alignment: Moderate degenerative change. Alignment intact. Osseous structures/fracture: No evidence of a lytic or blastic process in the visualized spine. No e vidence of acute fracture. Cervical soft tissues: The paraspinal soft tissues planes are maintained. Degenerative changes: Degenerative changes, without severe neural foraminal or central canal narrowin g. IMPRESSION: No acute fracture or traumatic malalignment in the cervical spine. Reviewed, dictated and finalized at location K.
[2024-03-27 19:44] VITALS: BP 155/107; PULSE 73; RESP 18; TEMP 36.8; O2SAT 97
[2024-03-27 19:46] VITALS: BP 155/107; PULSE 73; RESP 18; TEMP 36.8; O2SAT 97
--- NOTE | 2024-03-27 19:58 | ED.NECK ---
HPI - Neck Pain/Injury General Chief Complaint: Neck Pain/Injury Stated Complaint: NECK PAIN GOING INTO HEAD Time Seen by Provider: 03/27/24 19:49 Source: patient Mode of arrival: ambulatory Limitations: no limitations History of Present Illness HPI Narrative: Patient is a 73-year-old female who has been to the ER many times for nonspecific complaints. She is here with chronic neck pain. She said this neck pain is chronic for many years. No injury. MD complaint: neck pain Onset (ago): year(s) ( Many) Place: other ( no injury) Severity: moderate, intermittent and similar to prior neck pain Severity scale (1-10): 6 Quality: sharp and spasming Duration: intermittent Relieving factors: none Exacerbating factors: none Context: other ( no injury) Associated symptoms: none Treatments prior to arrival: none Related Data Home Medications Medication Instructions Recorded Confirmed dextroamphetamine-amphetamine 7.5 20 mg PO BID 10/20/19 03/27/24 mg tablet hydrochlorothiazide 50 mg tablet 50 mg PO DAILY 10/20/19 03/27/24 levothyroxine 175 mcg tablet 175 mcg PO DAILY 01/25/23 03/27/24 paroxetine HCl 30 mg tablet 30 mg PO DAILY 01/25/23 03/27/24 quetiapine 25 mg tablet 20 mg PO HS 01/25/23 03/27/24 quetiapine 50 mg tablet 200 mg PO HS 01/25/23 03/27/24 Allergies Allergy/AdvReac Type Severity Reaction Status Date / Time NSAIDS (Non-Steroidal AdvReac Ulcers Verified 03/27/24 19:48 Anti-Inflamma Review of Systems Review of Systems: All systems reviewed & are unremarkable except as noted in HPI and below Constitutional: Constitutional: Reports no additional constitutional complaints Eyes: Eyes: Reports no additional eye complaints ENT: Reports system reviewed and no additional complaints, except as documented Cardiovascular: Cardiovascular: Reports no additional cardiovascular complaints Respiratory: Respiratory: Reports no additional respiratory complaints Gastrointestinal: Gastrointestinal: Reports no additional gastrointestinal complaints Genitourinary: Genitourinary: Reports no additional female genitourinary complaints Musculoskeletal: Musculoskeletal: Reports no additional musculoskeletal complaints Integumentary/Breasts: Skin/Breast: Reports system reviewed and no additional complaints, except as docu Neurologic: Reports system reviewed and no additional complaints, except as documented Psychiatric: Psychiatric: Reports no additional psychiatric complaints Endocrine: Endocrine: Reports no additional endocrine complaints Hematologic/Lymphatic: Hematologic/Lymphatic: Reports no additional hematologic/lymphatic complaints Allergic/Immunologic: Allergic/Immunologic: Reports no additional allergic/immunologic complaints PMFSH Past Medical History Medical History Depression Hypertension Hypothyroidism Surgical History Surgical History H/O bariatric surgery History of cholecystectomy Family History Family History Mother Hypertension Carcinoma of colon Social History Social History Smoking status: Never smoker Alcohol intake: never Alcohol use details: occasional Substance use: never Substance use type: does not use Gender identity (if verbalized by the patient): Female Spiritual care concerns: No Agree to blood products: Yes Exam Const: General: healthy appearing Nutritional Appearance: well nourished Orientation/consciousness: patient oriented x3 HENMT: Head: normal to inspection Ears: external ears normal Face/Nose/Sinus: Normal external nose present Eyes: Conjunctivae: conjunctivae normal Pupils: Equal, round and reactive pupils present EOM: EOMs intact bilaterally Neck: Neck: normal visual inspection Chest: Chest palpation & inspectio
[2024-03-27] MEDS: ORPHENADRINE CITRATE 100 MG TABLET.ER PO (20:30)
[2024-03-27 20:45] VITALS: BP 155/98; PULSE 75; RESP 18; O2SAT 97
== END 2024-03-27 20:45 | disposition home or self-care (01) ==
PROVIDERS: Emergency Provider Emergency Medicine; PCP Nurse Practitioner Family
DX: M54.2 Cervicalgia (principal); I10 Essential (primary) hypertension; E03.9 Hypothyroidism, unspecified; Z79.899 Other long term (current) drug therapy
CPT/HCPCS: 70450; 72125; 99284; A9270

== ENCOUNTER 2024-08-23 16:01 | Emergency (ER) | payer MEDICARE, OTHER, SELFPAY ==
--- OUTSIDE RECORDS SUMMARY | 2024-08-23 16:08 | XMS_ITS ---
Author Organization [facility] Address [address] [place] [address] Care Team Providers [facility] Division Chair Name Role Phone Flaquito Alvarez Unavailable [phone] Allergies No Known Allergies Results Component Value Reference Range Notes UDT Reviewed date:07/08/2024 11:15:18 AM Interpretation: Performing Lab: Notes/Report: THC N 0 - 50 ng/ml Cocaine N 0 - 300 ng/ml Amphetamine POS 0 - 1000 ng/ml Buprenorphine (BUP) N 0 - 10 ng/ml Secobarbital (Bar) N 0 - 300 ng/ml Oxazepam (BZO) N 0 - 300 ng/ml 8-djpuhthhak-8,6-jawgdavd-6,3-diphenylpyrrolidine (TORIBIO P) N 0 - 300 ng/ml Methamphetamine (MET) N 0 - 1000 ng/ml Methylenedioxymethamphetamine (MDMA) N 0 - 500 ng/ml Morphine (MOP 300/UTD8620) N 0 - 300 ng/ml Methadone (MTD) N 0 - 300 ng/ml Phencyclidine (PCP) N 0 - 25 ng/ml Propoxyphene (PPX) N 0 - 300 ng/ml Nortriptyline (TCA) N 0 - 1000 ng/ml Oxycodone N 0 - 300 ng/ml REASON FOR VISIT follow up visit, medication evaluation Medications Medication SIG (Take, Route, Frequency, Duration) Notes Start Date End Date Status Magnesium *Pick strength-form from [facility] for eRX* 11/05/2023 Active Amphetamine-Dextroampheta mine 20 MG Oral 11/05/2023 Active Potassium Chloride ER 20 MEQ Oral 11/05/2023 Active Vitamin B-6 100 MG Oral 11/05/2023 Active Qelbree 200 MG 1 capsule Orally Once a day for 30 days 07/07/2024 Active hydroCHLOROthiazide 50 MG Oral 11/05/2023 Active QUEtiapine Fumarate 100 MG 1 tablet in the morning Orally Once a day for 30 days Active PARoxetine HCl 30 MG 1 tablet Oral Once a day for 30 days Active CALCIUM CITRATE MALATE 250 MG-VITAMIN D3 2.5 MCG (100 UNIT) TABLET *Reorder from [employer] for eRx and Interaction Alerts* 11/05/2023 Active Levothyroxine Sodium 150 MCG Oral 11/05/2023 Active QUEtiapine Fumarate 200 MG 1 tablet at bedtime Oral Once a day for 30 days Active Social History Sex Assigned At : Social History Observation Description Sex Assigned At Female Problems Problem Type SNOMED Code ICD Code Onset Dates Problem Status W/U Status Risk Notes Problem Mixed bipolar affective disorder, moderate (203084584) Bipolar disorder, current episode mixed, moderate (F31.62) Active confirmed Vital Signs Blood pressure systolic 128 mm Hg 07/07/19 25 Blood pressure diastolic 80 mm Hg 025 Heart Rate 59 /min 07/07/2024 Height 63.00 in 07/07/2024 Weight 151.8 lbs 07/07/2024 BMI 26.89 kg/m2 07/07/2024 Height-cm 160.02 cm 07/07/2024 Weight-kg 68.86 kg 07/07/2024 Encounters Encounter Location Date Provider Diagnosis [address] [address] 07/07/2024 [place] Bipolar disorder, current episode mixed, moderate F31.62 ; Generalized anxiety disorder F41.1 ; Other intermediate frame tender (current) drug therapy Z79.899 and Attention-deficit hyperactivity disorder, combined type F90.2 Assessments Encounter Date Diagnosis (ICD Code) Assessment Notes Treatment Notes Treatment Clinical Notes Section Notes 07/07/2024 Bipolar disorder, current episode mixed, moderate (ICD-10 - F31.62) 1. ADHD: - Patient has a history of taking Adderall but experienced dony and other side effects. Adderall is not recommended due to the patient's history of bipolar disorder and psychosis. Plan: - Discontinue Adderall. - Start Qelbree 200 mg daily for ADHD management. - Educate the patient on the importance of taking prescribed medications and avoiding unregulated supplements. 2. Bipolar Disorder: - Patient is currently taking quetiapine 200 mg at bedtime and was previously on 100 mg in the morning. Plan: - Continue quetiapine 200 mg at bedtime. - Restart quetiapine 100 mg in the morning for bipolar disorder management. - Monitor for any side effects or changes in mood. 3. Anxiety: - Patient is currently taking Paxil 30 mg daily. Plan: - Continue Paxil 30 mg daily for anxiety management. - Assess the effectiveness of the medication during follow-up visits. 4. Sleep: - Patient reports difficulty sleeping due to running out of quetiapine. Plan: - Ensure the patient has an adequate supply of quetiapine for sleep management. - Encourage good sleep hygiene practices. 5. Employment and well-being: - Patient is seeking constructive activities for personal well-being and is interested in rapid transformational therapy and hypnosis. Plan: - Encourage the patient to research and pursue activities that contribute to their well-being. - Provide information on rapid transformational therapy and hypnosis if available. 6. Follow-up and coordination of care: - Patient was previously seeing a provider at [facility]. Plan: - Obtain records from the previous provider. - Schedule a follow-up appointment in one month to assess the effectiveness of the new medication regimen and address any concerns. 7. Pharmacy: - Patient uses [facility] in [place]. Plan: - Send prescriptions for Qelbree, quetiapine, and Paxil to the patient's preferred pharmacy. 07/07/2024 Generalized anxiety disorder (ICD-10 - F41.1) 1. ADHD: - Patient has a history of taking Adderall but experienced dony and other side effects. Adderall is not recommended due to the patient's history of bipolar disorder and psychosis. Plan: - Discontinue Adderall. - Start Qelbree 200 mg daily for ADHD management. - Educate the patient on the importance of taking prescribed medications and avoiding unregulated supplements. 2. Bipolar Disorder: - Patient is currently taking quetiapine 200 mg at bedtime and was previously on 100 mg in the morning. Plan: - Continue quetiapine 200 mg at bedtime. - Restart quetiapine 100 mg in the morning for bipolar disorder management. - Monitor for any side effects or changes in mood. 3. Anxiety: - Patient is currently taking Paxil 30 mg daily. Plan: - Continue Paxil 30 mg daily for anxiety management. - Assess the effectiveness of the medication during follow-up visits. 4. Sleep: - Patient reports difficulty sleeping due to running out of quetiapine. Plan: - Ensure the patient has an adequate supply of quetiapine for sleep management. - Encourage good sleep hygiene practices. 5. Employment and well-being: - Patient is seeking constructive activities for personal well-being and is interested in rapid transformational therapy and hypnosis. Plan: - Encourage the patient to research and pursue activities that contribute to their well-being. - Provide information on rapid transformational therapy and hypnosis if available. 6. Follow-up and coordination of care: - Patient was previously seeing a provider at [facility]. Plan: - Obtain records from the previous provider. - Schedule a follow-up appointment in one month to assess the effectiveness of the new medication regimen and address any concerns. 7. Pharmacy: - Patient uses [facility] in [place]. Plan: - Send prescriptions for Qelbree, quetiapine, and Paxil to the patient's preferred pharmacy. 07/07/2024 Other care home (current) drug therapy (ICD-10 - Z79.899) 1. ADHD: - Patient has a history of taking Adderall but experienced dony and other side effects. Adderall is not recommended due to the patient's history of bipolar disorder and psychosis. Plan: - Discontinue Adderall. - Start Qelbree 200 mg daily for ADHD management. - Educate the patient on the importance of taking prescribed medications and avoiding unregulated supplements. 2. Bipolar Disorder: - Patient is currently taking quetiapine 200 mg at bedtime and was previously on 100 mg in the morning. Plan: - Continue quetiapine 200 mg at bedtime. - Restart quetiapine 100 mg in the morning for bipolar disorder management. - Monitor for any side effects or changes in mood. 3. Anxiety: - Patient is currently taking Paxil 30 mg daily. Plan: - Continue Paxil 30 mg daily for anxiety management. - Assess the effectiveness of the medication during follow-up visits. 4. Sleep: - Patient reports difficulty sleeping due to running out of quetiapine. Plan: - Ensure the patient has an adequate supply of quetiapine for sleep management. - Encourage good sleep hygiene practices. 5. Employment and well-being: - Patient is seeking constructive activities for personal well-being and is interested in rapid transformational therapy and hypnosis. Plan: - Encourage the patient to research and pursue activities that contribute to their well-being. - Provide information on rapid transformational therapy and hypnosis if available. 6. Follow-up and coordination of care: - Patient was previously seeing a provider at [facility]. Plan: - Obtain records from the previous provider. - Schedule a follow-up appointment in one month to assess the effectiveness of the new medication regimen and address any concerns. 7. Pharmacy: - Patient uses [facility] in [place]. Plan: - Send prescriptions for Qelbree, quetiapine, and Paxil to the patient's preferred pharmacy. 07/07/2024 Attention-defici t hyperactivity disorder, combined type (ICD-10 - F90.2) do not recommend stimulants 1. ADHD: - Patient has a history of taking Adderall but experienced dony and other side effects. Adderall is not recommended due to the patient's history of bipolar disorder and psychosis. Plan: - Discontinue Adderall. - Start Qelbree 200 mg daily for ADHD management. - Educate the patient on the importance of taking prescribed medications and avoiding unregulated supplements. 2. Bipolar Disorder: - Patient is currently taking quetiapine 200 mg at bedtime and was previously on 100 mg in the morning. Plan: - Continue quetiapine 200 mg at bedtime. - Restart quetiapine 100 mg in the morning for bipolar disorder management. - Monitor for any side effects or changes in mood. 3. Anxiety: - Patient is currently taking Paxil 30 mg daily. Plan: - Continue Paxil 30 mg daily for anxiety management. - Assess the effectiveness of the medication during follow-up visits. 4. Sleep: - Patient reports difficulty sleeping due to running out of quetiapine. Plan: - Ensure the patient has an adequate supply of quetiapine for sleep management. - Encourage good sleep hygiene practices. 5. Employment and well-being: - Patient is seeking constructive activities for personal well-being and is interested in rapid transformational therapy and hypnosis. Plan: - Encourage the patient to research and pursue activities that contribute to their well-being. - Provide information on rapid transformational therapy and hypnosis if available. 6. Follow-up and coordination of care: - Patient was previously seeing a provider at [facility]. Plan: - Obtain records from the previous provider. - Schedule a follow-up appointment in one month to assess the effectiveness of the new medication regimen and address any concerns. 7. Pharmacy: - Patient uses [facility] in [place]. Plan: - Send prescriptions for Qelbree, quetiapine, and Paxil to the patient's preferred pharmacy. Plan Of Treatment Medication Medication Name Sig Start Date Stop Date Notes Qelbree 200 MG 1 capsule Orally Onc e a day for 30 days 07/07/2024 09/05/2024 QUEtiapine Fumarate 100 MG 1 tablet in t he morning Orally Once a day for 30 days PARoxetine HCl 30 MG 1 tablet Oral Once a day for 30 days QUEtiapine Fumarate 200 MG 1 tablet at b edtime Oral Once a day for 30 days Treatment Notes Assessment Notes Attention-deficit hyperactivity disorder , combined type do not recommend stimulants Next Appt Details Follow Up: 4 Weeks, Reason: f/u bipolar d/o, adhd Provider Name:Flaquito romero, 09/04/2024 11:30:00 AM, [facility] [address], [facility] [address], [place], [address], Progress Notes * JOSE FRANCISCOKARRIELINDADOB:1949 (74 yo F)Acc No.[id number]:07/07/2024 Patient: [place] [employer]WRIT[employer]LINDA Provider: FALLON GRIFFITHS :1950 A ge:74 Y S ex:Female Date:07/07/2024 Address:[address] [place], [place] [id number] Subjective: * Chief Complaints: * F ollow up visit, medication evaluation * HPI: D epression screening: the note is transcribed using speech recognition software. It is a reflection of a visit with the patient. It might have some inaccuracy, including medication names and transcribing errors, though efforts have been made to correct them. Chief complaint- ADHD management, medication concerns. The patient reports a history of long-term Adderall use. She had been tapered off in the past r/t dony and side effects such as sweating and other issues. She has been exploring alternative options for managing her ADHD symptoms. The patient has a history of bipolar disorder and experienced dony, which led to the discontinuation of Adderall. She is currently taking quetiapine and Paxil as prescribed, as well as Adderall. She was last seen at this office in August 2023, and has been seeing a provider through telemedicine for her mental health since. She reports she did not feel like I was hearing her in the past, and she states she does not feel like her current provider is hearing her so she is resuming care at this office. The patient is interested in pursuing another degree and has been researching rapid transformational therapy and hypnosis as potential treatment options. She inquires about the effectiveness of hypnosis. The patient has recently lost her job due to it not being a good fit and is seeking constructive activities for her well-being. The patient denies experiencing depression and reports that her sons are doing well. She has been sleeping well, except for running out of caffeine. She has been taking a supplement called [employer]-something, which she purchased online as a potential replacement for Adderall. She is unsure of its contents and effectiveness. The patient has been out of Adderall since the beginning of May and feels that she does not get things done without it. She reports that amphetamine showed up in her urine drug screen, which she attributes to the [employer]-something supplement and some old pills she found while cleaning her house. PHQ-9 L ittle interest or pleasure in doing things S everal days, F eeling down, depressed, or hopeless S everal days, T rouble falling or staying asleep, or sleeping too much S everal days, F eeling tired or having little energy S everal days, P oor appetite or overeating S everal days, F eeling bad about yourself or that you are a failure, or have let yourself or your family down S everal days, T rouble concentrating on things, such as reading the newspaper or watching television N ot at all, M oving or speaking so slowly that other people could have noticed; or the opposite, being so fidgety or restless that you have been moving around a lot more than usual N ot at all, T houghts that you would be better off or of hurting yourself in some way N ot at all, T otal Score 6, I nterpretation M ild Depression. I ntervention D epression Screening Findings P ositlayla, F ollow-Up for Depression M ental health treatment assessment, Patient follow-up to return when and if necessary, S uicide Risk Assessment Performed 0 07/07/2024 , A dditional Evaluation for Depression P sychiatric interview and evaluation, N jarek of the standardized tool used for adult depression screening: [facility] (PHQ-9). H istory of Presenting Problem: Anxiety O nset: years ago. D epression b ipolar d/o, recent dony, Onset: years ago. * Medical History: * Surgical History: * Hospitalization/Major Diagno stic Procedure: * Medications: T akinghydroCHLOROthiazide 50 MG Tablet Oral Levothyroxine Sodium 150 MCG Tablet Oral CALCIUM CITRATE MALATE 250 MG-VITAMIN D3 2.5 MCG (100 UNIT) TABLET , Notes to Pharmacist: *Reorder from [facility] for eRx and Interaction Alerts*Amphetamine-Dextroamphetamine 20 MG Tablet Oral Magnesium , Notes to Pharmacist: *[facility] for [facility]*Vitamin B-6 100 MG Tablet Oral Potassium Chloride ER 20 MEQ Tablet Extended Release Oral QUEtiapine Fumarate 200 MG Tablet 1 tablet at bedtime Oral Once a day PARoxetine HCl 30 MG Tablet 1 tablet Oral Once a day QUEtiapine Fumarate 100 MG Tablet 1 tablet in the morning Orally Once a day Taking hydroCHLOROthiazide 50 MG Tablet Oral Taking Levothyroxine Sodium 150 MCG Tablet Oral Taking CALCIUM CITRATE MALATE 250 MG-VITAMIN D3 2.5 MCG (100 UNIT) TABLET , Notes to Pharmacist: *Reorder from [facility] for eRx and Interaction Alerts*Taking Amphetamine-Dextroamphetamine 20 MG Tablet Oral Taking Magnesium , Notes to Pharmacist: *[facility] for [facility]*Taking Vitamin B-6 100 MG Tablet Oral Taking Potassium Chloride ER 20 MEQ Tablet Extended Release Oral Taking QUEtiapine Fumarate 200 MG Tablet 1 tablet at bedtime Oral Once a day Taking PARoxetine HCl 30 MG Tablet 1 tablet Oral Once a day Taking QUEtiapine Fumarate 100 MG Tablet 1 tablet in the morning Orally Once a day DiscontinuedMoxifloxacin HCl 0.5 % Solution Ophthalmic Nitrofurantoin Monohyd Macro 100 MG Capsule Oral Ferrous Sulfate 325 (65 Fe) MG Tablet Delayed Release Oral Diclofenac Sodium 75 MG Tablet Delayed Release Oral Levothyroxine Sodium 175 MCG Tablet Oral Pantoprazole Sodium 40 MG Tablet Delayed Release Oral Levothyroxine Sodium 112 MCG Tablet Oral Naproxen 500 MG Tablet Oral Cephalexin 500 MG Capsule Oral Sucralfate 1 GM Tablet Oral Omeprazole 40 MG Capsule Delayed Release Oral HYDROcodone-Acetaminophen 5-325 MG Tablet Oral Ondansetron 4 MG Tablet Disintegrating Oral Polymyxin B-Trimethoprim 02237-4.1 UNIT/ML Solution Ophthalmic prednisoLONE Acetate 1 % Suspension Ophthalmic hydrOXYzine HCl 25 MG Tablet Oral Medication List reviewed and reconciled with the patientDiscontinued Moxifloxacin HCl 0.5 % Solution Ophthalmic Discontinued Nitrofurantoin Monohyd Macro 100 MG Capsule Oral Discontinued Ferrous Sulfate 325 (65 Fe) MG Tablet Delayed Release Oral Discontinued Diclofenac Sodium 75 MG Tablet Delayed Release Oral Discontinued Levothyroxine Sodium 175 MCG Tablet Oral Discontinued Pantoprazole Sodium 40 MG Tablet Delayed Release Oral Discontinued Levothyroxine Sodium 112 MCG Tablet Oral Discontinued Naproxen 500 MG Tablet Oral Discontinued Cephalexin 500 MG Capsule Oral Discontinued Sucralfate 1 GM Tablet Oral Discontinued Omeprazole 40 MG Capsule Delayed Release Oral Discontinued HYDROcodone-Acetaminophen 5-325 MG Tablet Oral Discontinued Ondansetron 4 MG Tablet Disintegrating Oral Discontinued Polymyxin B-Trimethoprim 46012-0.1 UNIT/ML Solution Ophthalmic Discontinued prednisoLONE Acetate 1 % Suspension Ophthalmic Discontinued hydrOXYzine HCl 25 MG Tablet Oral Medication List reviewed and reconciled with the patient * Allergies: N .K.D.A.no[Allergies Verified] Objective: * Vitals: B P:128/80mm Hg, HR:59/min, Wt:151.8lbs, Wt-k.86 kg, Ht: 63.00 in, Ht-cm: 160.02 cm, BMI:26.89Index, Body Surface Area: 1.75. * Examination: N eurology: Cognition Assessment Tools Used . P sychiatry: Affect / mood: l abile. Suicidal ideation: n one. Orientation: a wake, alert and oriented x 3. Speech / language: t alkative, pressured, loud. Thought process: c ircumstantial. G eneral Examination: - Mental Status Examination: - Patient is hyper and talkative. - Thoughts are circumstantial. - No signs of depression observed. - Patient expressed concerns about medication management and desire for constructive activities. - Patient is alert and oriented. - Physical Examination: - General: Patient appears well-nourished and well-groomed. - Neurological: Patient is alert, oriented, and able to participate in the conversation. - Psychiatric: No acute distress noted; patient is talkative with rapid speech. - Diagnostic Test Results and Labs: - Urine drug screen positive for amphetamine. Assessment: * Assessment: 1. B ipolar disorder, current episode mixed, moderate - F31.62 (Primary) 2 .?Generalized anxiety disorder - F41.1 3 . O ther intermediate frame tender (current) drug therapy - Z79.899 4 . A ttention-deficit hyperactivity disorder, combined type - F90.2 1. ADHD: - Patient has a history of taking Adderall but experienced dony and other side effects. Adderall is not recommended due to the patient's history of bipolar disorder and psychosis. Plan: - Discontinue Adderall. - Start Qelbree 200 mg daily for ADHD management. - Educate the patient on the importance of taking prescribed medications and avoiding unregulated supplements. 2. Bipolar Disorder: - Patient is currently taking quetiapine 200 mg at bedtime and was previously on 100 mg in the morning. Plan: - Continue quetiapine 200 mg at bedtime. - Restart quetiapine 100 mg in the morning for bipolar disorder management. - Monitor for any side effects or changes in mood. 3. Anxiety: - Patient is currently taking Paxil 30 mg daily. Plan: - Continue Paxil 30 mg daily for anxiety management. - Assess the effectiveness of the medication during follow-up visits. 4. Sleep: - Patient reports difficulty sleeping due to running out of quetiapine. Plan: - Ensure the patient has an adequate supply of quetiapine for sleep management. - Encourage good sleep hygiene practices. 5. Employment and well-being: - Patient is seeking constructive activities for personal well-being and is interested in rapid transformational therapy and hypnosis. Plan: - Encourage the patient to research and pursue activities that contribute to their well-being. - Provide information on rapid transformational therapy and hypnosis if available. 6. Follow-up and coordination of care: - Patient was previously seeing a provider at [facility]. Plan: - Obtain records from the previous provider. - Schedule a follow-up appointment in one month to assess the effectiveness of the new medication regimen and address any concerns. 7. Pharmacy: - Patient uses [facility] in [place]. Plan: - Send prescriptions for Qelbree, quetiapine, and Paxil to the patient's preferred pharmacy. Plan: * Treatment: 2. G eneralized anxiety disorder Refill PARoxetine HCl Tablet, 30 MG, 1 tablet, Oral, Once a day, 30 days, 30 Tablet, Refills 1.? 3. A ttention-deficit hyperactivity disorder, combined type Start Qelbree Capsule Extended Release 24 Hour, 200 MG, 1 capsule, Orally, Once a day, 30 days, 30 Capsule, Refills 1. Notes: do not recommend stimulants * Labs: * L ab: UDT (Collection Date & Time - 07/07/2024) Value Reference Range T HC N 0 - 50 ng/ml * C ocaine N 0 - 300 ng/ml * A mphetamine POS 0 - 1000 ng/ml * B uprenorphine (BUP) N 0 - 10 ng/ml * S ecobarbital (Bar) N 0 - 300 ng/ml * O xazepam (BZO) N 0 - 300 ng/ml * 2 -ethylidene-1,6-hooowbjm-3,3-diphenylpyrrolidine (EDDP) N 0 - 300 ng/ml * M ethamphetamine (MET) N 0 - 1000 ng/ml * M ethylenedioxymethamphetamine (MDMA) N 0 - 500 ng/ml * M orphine (MOP 300/RSB9027) N 0 - 300 ng/ml * M ethadone (MTD) N 0 - 300 ng/ml * P hencyclidine (PCP) N 0 - 25 ng/ml * P ropoxyphene (PPX) N 0 - 300 ng/ml * N ortriptyline (TCA) N 0 - 1000 ng/ml * O xycodone N 0 - 300 ng/ml * Procedure Codes: 9 6127 BEHAV ASSMT W/SCORE & DOCD/STAND [id number] DRUG TST PRSMV READ INSTRMNT ASSTD DIR OPT OBS * Follow Up: 4 Weeks (Reason: f/u bipolar d/o, adhd) * Billing Information: * Visit Code: 90252 OFFICE OUTPATIENT VISIT 25 MINUTES DETAILED HISTORY AND EXAM/MODERATE MEDICAL DECISION MAKING. * Procedure Codes: 10212 BEHAV ASSMT W/SCORE & DOCD/STAND INSTRUMENT. 04621 DRUG TST PRSMV READ INSTRMNT ASSTD DIR OPT OBS. * ER MAID Sign off status: Completed true * Provider: FALLON GRIFFITHS Date: 0 07/07/2024 Generated for Medina li/David/Delmarsmramirez on: 0 08/23/2024 04:08 PM [facility] MAID History and Physical Notes * HPI (History of Present Illness) Category Sub-Category Detail Notes Category Not es History of Presenting Problem Anxiety Onset: year s ago Depression bipolar d/o, recent dony, Onset: years ago Depression screening PHQ-9 Little inte rest or pleasure in doing things: Several days Feeling down, depressed, or hopeless: Se veral days Trouble falling or staying asleep, or sl eeping too much: Several days Feeling tired or having little energy: S everal days Poor appetite or overeating: Several day s Feeling bad about yourself o r that you are a failure, or have let yourself or your family down: Several days Trouble concentrating on thi ngs, such as reading the newspaper or watching television: Not at all Moving or speaking so slowly that other people could have noticed; or the opposite, being so fidgety or restless that you have been moving around a lot more than usual: Not at all Thoughts that you would be b shikha off or of hurting yourself in some way: Not at all Total Score: 6 Interpretation: Mild Depression Intervention Depression Screening Findings: P ositve Follow-Up for Depression: [facility] treatment assessment, Patient follow-up to return when and if necessary Suicide Risk Assessment Performed: 07/07 Additional Evaluation for De pression: Psychiatric interview and evaluation Name of the standardized too l used for adult depression screening:: Patient Health Questionnaire (PHQ-9) Examination Category Sub-Category Detail Notes Category Not es Neurology Cognition Assessment Tools Used Total score SLUMS: 19 Psychiatry Orientation: awake, alert and oriented x 3 Affect / mood: labile Speech / language: talkative, pressured , loud Thought process: circumstantial Suicidal ideation: none General Examination - Mental Status Examination: - Patient is hyper and talkative. - Thoughts are circumstantial. - No signs of depression observed. - Patient expressed concerns about medication management and desire for constructive activities. - Patient is alert and oriented. - Physical Examination: - General: Patient appears well-nourished and well-groomed. - Neurological: Patient is alert, oriented, and able to participate in the conversation. - Psychiatric: No acute distress noted; patient is talkative with rapid speech. - Diagnostic Test Results and Labs: - Urine drug screen positive for amphetamine.
--- OUTSIDE RECORDS SUMMARY | 2024-08-23 16:08 | XMS_ITS ---
Author Organization [facility] [employer] Address [address] [place] [address] Care Team Providers Care Boomswing Operator Name Role Phone Flaquito Alvarez Unavailable [phone] Allergies No Known Allergies REASON FOR VISIT 1 month f/u, Depression screening positive Medications Medication SIG (Take, Route, Frequency, Duration) Notes Start Date End Date Status PARoxetine HCl 30 MG 1 tablet Oral Once a day for 30 days Active Potassium Chloride ER 20 MEQ Oral 11/05/2023 Active QUEtiapine Fumarate 100 MG 1 tablet in the morning Orally Once a day for 30 days Active Vitamin B-6 100 MG Oral 11/05/2023 Active QUEtiapine Fumarate 200 MG 1 tablet at bedtime Oral Once a day for 30 days Active Magnesium *Pick strength-form from [employer] for eRX* 11/05/2023 Active CALCIUM CITRATE MALATE 250 MG-VITAMIN D3 2.5 MCG (100 UNIT) TABLET *Reorder from [employer] for eRx and Interaction Alerts* 11/05/2023 Active Amphetamine-Dextroampheta mine 20 MG Oral 11/05/2023 Active Levothyroxine Sodium 150 MCG Oral 11/05/2023 Active hydroCHLOROthiazide 50 MG Oral 11/05/2023 Active Qelbree 200 MG 1 capsule once a day for 7 days, 2 capsules once a day for 30 days Orally see sign for 30 days 07/07/2024 Active Social History Sex Assigned At : Social History Observation Description Sex Assigned At Female Problems Problem Type SNOMED Code ICD Code Onset Dates Problem Status W/U Status Risk Notes Problem Attention deficit hyperactivity disorder, combined type (18829571) Attention-deficit hyperactivity disorder, combined type (F90.2) Active confirmed Vital Signs Blood pressure systolic 140 mm Hg 08/07/19 25 Blood pressure diastolic 66 mm Hg 025 Heart Rate 74 /min 08/07/2024 Height 63.00 in 08/07/2024 Weight 153 lbs 08/07/2024 BMI 27.1 kg/m2 08/07/2024 Height-cm 160.02 cm 08/07/2024 Weight-kg 69.4 kg 08/07/2024 Encounters Encounter Location Date Provider Diagnosis [facility] [address] [place] [address] 08/07/2024 Flaquito Alvarez Bipolar disorder, current episode mixed, moderate F31.62 ; Generalized anxiety disorder F41.1 ; Other usp (current) drug therapy Z79.899 and Attention-deficit hyperactivity disorder, combined type F90.2 Assessments Encounter Date Diagnosis (ICD Code) Assessment Notes Treatment Notes Treatment Clinical Notes Section Notes 08/07/2024 Bipolar disorder, current episode mixed, moderate (ICD-10 - F31.62) 08/07/2024 Generalized anxiety disorder (ICD-10 - F41.1) 08/07/2024 Other usp (current) drug therapy (ICD-10 - Z79.899) 08/07/2024 Attention-deficit hyperactivity disorder, combined type (ICD-10 - F90.2) do not recommend stimulants Plan Of Treatment Medication Medication Name Sig Start Date Stop Date Notes PARoxetine HCl 30 MG 1 tablet Oral Once a day for 30 days QUEtiapine Fumarate 100 MG 1 tablet in t he morning Orally Once a day for 30 days QUEtiapine Fumarate 200 MG 1 tablet at b edtime Oral Once a day for 30 days Qelbree 200 MG 1 capsule once a day for 7 days, 2 capsules once a day for 30 days Orally see sign for 30 days 07/07/2024 09/06/2024 Treatment Notes Assessment Notes Attention-deficit hyperactivity disorder , combined type do not recommend stimulants Next Appt Details Follow Up: 4 Weeks, Reason: f/u bipolar d/o, adhd Provider Name:Flaquito romero, 09/04/2024 11:30:00 AM, [address], [address], [place], [address], Progress Notes * LINDA DIASDOB:1949 (74 yo F)Acc No.[id number]:08/07/2024 Patient: LINDA FREED Provider: FALLON GRIFFITHS :1950 A ge:74 Y S ex:Female Date:08/07/2024 Address:[address] [place], [place] [id number] Subjective: * Chief Complaints: * 1 . 1 month f/u. 2. Depression screening positive. * HPI: D epression screening: PHQ-9 L ittle interest or pleasure in doing things?Several days F eeling down, depressed, or hopeless S everal days T rouble falling or staying asleep, or sleeping too much N ot at all F eeling tired or having little energy S everal P oor appetite or overeating S ever F eeling bad about yourself or that you are a failure, or have let yourself or your family down S everal days T rouble concentrating on things, such as reading the newspaper or watching television S ever M oving or speaking so slowly that other people could have noticed; or the opposite, being so fidgety or restless that you have been moving around a lot more than usual N ot at all T houghts that you would be better off or of hurting yourself in some way S everal (Consider Suicide Assessment Risk) T otal Score 7 I nterpretation M ild Depression Intervention D epression Screening Findings P ositve F ollow-Up for Depression M ental health treatment assessment, Patient follow-up to return when and if necessary S uicide Risk Assessment Performed _ A dditional Evaluation for Depression P sychiatric interview and evaluation N jarek of the standardized tool used for adult depression screening: P atient Health Questionnaire (PHQ-9) D epression Screening: NISHANT-7 (2018 Edition) F eeling nervous, anxious, or on edge S everal days N ot being able to stop or control worrying?Several days W orrying too much about different things S everal days T rouble relaxing N ot at all B eing so restless that it is hard to sit still N ot at all B ecoming easily annoyed or irritable S F eeling afraid as if something awful might happen S ever T otal NISHANT-7 Score 5 I nterpretation of Total ( 5 to 9) Mild H istory of Presenting Problem: She is standing during the visit. Speech is pressured, thoughts tangential. Anxiety O nset: years ago. Depression b ipolar d/o, recent dony, Onset: years ago , bipolar d/o, recent dony, Onset: years ago. Psychotherapy n ot seeing a counselor. * ROS: P erformance Met: N ormal blood pressure reading documented, follow-up not required ( G8783). * Medical History: P roblems: Attention deficit hyperactivity disorder, Attention deficit hyperactivity disorder, predominantly inattentive type, Bipolar disorder, Generalized anxiety disorder, Long-term drug therapy, ,. * Medications: T aking QUEtiapine Fumarate 200 MG Tablet 1 tablet at bedtime Oral Once a day , Taking PARoxetine HCl 30 MG Tablet 1 tablet Oral Once a day , Taking QUEtiapine Fumarate 100 MG Tablet 1 tablet in the morning Orally Once a day , Taking hydroCHLOROthiazide 50 MG Tablet Oral , Taking Levothyroxine Sodium 150 MCG Tablet Oral , Taking CALCIUM CITRATE MALATE 250 MG-VITAMIN D3 2.5 MCG (100 UNIT) TABLET , Notes to Pharmacist: *Reorder from [employer] for eRx and Interaction Alerts*, Taking Amphetamine-Dextroamphetamine 20 MG Tablet Oral , Taking Magnesium , Notes to Pharmacist: *Pick strength-form from [employer] for eRX*, Taking Vitamin B-6 100 MG Tablet Oral , Taking Potassium Chloride ER 20 MEQ Tablet Extended Release Oral , Taking Qelbree 200 MG Capsule Extended Release 24 Hour 1 capsule Orally Once a day , stop date 10/02/2024, Medication List reviewed and reconciled with the patient * Allergies: N .K.D.A. Objective: * Vitals: B P:140/66mm Hg, HR:74/min, Wt:153lbs, Wt-k.4 kg, Ht: 63.00 in, Ht-cm: 160.02 cm, BMI:27.1Index, Body Surface Area: 1.75. * Examination: N eurology: Cognition Assessment Tools Used P sychiatry: Affect / mood: l abile. Suicidal ideation: n one. Orientation: a wake, alert and oriented x 3. Speech / language: t alkative, pressured, loud. Thought process: c ircumstantial. Assessment: * Assessment: 1. B ipolar disorder, current episode mixed, moderate - F31.62 (Primary) 2 .?Generalized anxiety disorder - F41.1 3 . O ther usp (current) drug therapy - Z79.899 4 . A ttention-deficit hyperactivity disorder, combined type - F90.2 Plan: * Treatment: 2. G eneralized anxiety disorder Refill PARoxetine HCl Tablet, 30 MG, 1 tablet, Oral, Once a day, 30 days, 30 Tablet, Refills 1.? 3. A ttention-deficit hyperactivity disorder, combined type Refill Qelbree Capsule Extended Release 24 Hour, 200 MG, 1 capsule once a day for 7 days, 2 capsules once a day for 30 days, Orally, see sign, 30 days, 60, Refills 0. Notes: do not recommend stimulants * Procedure Codes: G 8783 NORMAL BP READING DOC F/U NOT RQR, 17877 BEHAV ASSMT W/SCORE & DOCD/STAND INSTRUMENT, G8752 MOST RECENT SYSTOLIC BP < 140MM HG, G8754 MOST RECENT DIASTOLIC BP < 90MM HG * Follow Up: 4 Weeks (Reason: f/u bipolar d/o, adhd) * Billing Information: * Visit Code: 85116 OFFICE OUTPATIENT VISIT 25 MINUTES DETAILED HISTORY AND EXAM/MODERATE MEDICAL DECISION MAKING. * Procedure Codes: G8783 NORMAL BP READING DOC F/U NOT RQR. 70335 BEHAV ASSMT W/SCORE & DOCD/STAND INSTRUMENT. G8752 MOST RECENT SYSTOLIC BP < 140MM HG. G8754 MOST RECENT DIASTOLIC BP < 90MM HG. * Electronic signature of FALLON Clements on 08/23/2024 at 04:08 PM MANAGER TRADE Sign off status: Pending * Provider: FALLON GRIFFITHS Date: 0 08/07/2024 Generated for Medina li/David/Joe on: 0 08/23/2024 04:08 PM MANAGER TRADE History and Physical Notes * HPI (History of Present Illness) Category Sub-Category Detail Notes Category Not es History of Presenting Problem Anxiety Onset: year s ago Depression bipolar d/o, recent dony, Onset: years ago , bipolar d/o, recent dony, Onset: years ago Psychotherapy not seeing a counselor marriage and family or Depression screening PHQ-9 Little inte rest or pleasure in doing things: Several days Feeling down, depressed, or hopeless: Se veral days Trouble falling or staying asleep, or sl eeping too much: Not at all Feeling tired or having little energy: S everal days Poor appetite or overeating: Several day s Feeling bad about yourself o r that you are a failure, or have let yourself or your family down: Several days Trouble concentrating on thi ngs, such as reading the newspaper or watching television: Several days Moving or speaking so slowly that other people could have noticed; or the opposite, being so fidgety or restless that you have been moving around a lot more than usual: Not at all Thoughts that you would be b shikha off or of hurting yourself in some way: Several days (Consider Suicide Assessment Risk) Total Score: 7 Interpretation: Mild Depression Intervention Depression Screening Findings: P ositve Follow-Up for Depression: [facility] treatment assessment, Patient follow-up to return when and if necessary Suicide Risk Assessment Performed: Additional Evaluation for De pression: Psychiatric interview and evaluation Name of the standardized too l used for adult depression screening:: Patient Health Questionnaire (PHQ-9) Depression Screening NISHANT-7 (2018 Edition) Feelin g nervous, anxious, or on edge: Several days Not being able to stop or control worryi ng: Several days Worrying too much about different things : Several days Trouble relaxing: Not at all Being so restless that it is hard to sit still: Not at all Becoming easily annoyed or irritable: Se veral days Feeling afraid as if something awful eayd ht happen: Several days Total NISHANT-7 Score: 5 Interpretation of Total: (5 to 9) Mild Examination Category Sub-Category Detail Notes Category Not es Neurology Cognition Assessment Tools Used Total score SLUMS: 19 Psychiatry Orientation: awake, alert and oriented x 3 Affect / mood: labile Speech / language: talkative, pressured , loud Thought process: circumstantial Suicidal ideation: none
--- OUTSIDE RECORDS SUMMARY | 2024-08-23 16:08 | XMS_ITS ---
Author Organization Unknown Address [address] [place] [phone] Phone Care Team Providers Care Instructional Media Services Technician Name Role Phone BERNADETTE COLON Attending Unavailable ABELINO SNIDER PA-C Primary Unavailable Results BASIC METABOLIC PANEL - Tahmina ect Date/Time: 11/07/2023 15:27 [facility] ID: [id number] [place], [place], [phone] LOINC: 07555-2 Test Value Unit Reference Range Code Code System Flag FASTING UNKNOWN BUN 35 mg/dL L=7 H=20 3094-0 LOINC H CREATININE 1.00 mg/dL L=0.52 H=1.04 2160-0 LOINC GLUCOSE 119 mg/dL L=74 H=106 2345-7 LOINC H CALCIUM 10.1 mg/dL L=8.3 H=10.5 16761-1 LOINC SODIUM 137 mmol/L L=132 H=144 2951-2 LOINC POTASSIUM 4.1 mmol/L L=3.5 H=5.1 2823-3 LOINC CHLORIDE 101 mmol/L L=98 H=107 2075-0 LOINC CO2 27.0 mmol/L L=22.0 H=30.0 2028-9 LOINC ANION GAP 13 L=10 H=20 77923-2 LOINC BUN/CREAT 35.0 3097-3 LOINC AGE 73 25993-6 LOINC eGFR NON-AFR 58 ml/min eGFR AFR AMER 70 ml/min MAGNESIUM - Collect Date/Rui e: 11/07/2023 15:27 [facility] ID: [id number] [address] [place] [address], [phone] LOINC: 10562-7 Test Value Unit Reference Range Code Code System Flag MAGNESIUM 1.9 mg/dL L=1.6 H=2.3 37358-2 LOINC OD GNBEN-CDEXSBZIOMDDS-ZQDPN YLATE-ETOH - Collect Date/Time: 11/07/2023 15:27 [facility] ID: [id number] [address] [place] [address], [phone] LOINC: Test Value Unit Reference Range Code Code System Flag ACETAMINOPHEN < 10 ug/dL L=0 H=10 3298-7 LOINC SALICYLATE < 1 mg/dL L=0 H=5 4024-6 LOINC ALCOHOL < 10.00 mg/dL L=0.00 H=50.00 5643-2 LOINC TSH - Collect Date/Time: 03/2024 15:27 [facility] ID: [id number] [address] [place] [address], [phone] LOINC: 19046-5 Test Value Unit Reference Range Code Code System Flag TSH. 44.500 uIU/L L=0.470 H=4.680 29144-7 LOINC H LIVER PROFILE - Collect Date /Time: 11/07/2023 15:27 [facility] ID: [id number] [address] [place] [address], [phone] LOINC: 25265-1 Test Value Unit Reference Range Code Code System Flag ALT 25 U/L L=9 H=72 1742-6 LOINC AST 40 U/L L=15 H=46 1920-8 LOINC ALKALINE PHOS 92 U/L L=38 H=126 6768-6 LOINC TOTAL PROTEIN 9.1 g/L L=6.3 H=8.2 2885-2 LOINC H TOTAL BILI 0.4 mg/dL L=0.2 H=1.3 1975-2 LOINC DIRECT BILI 0.0 mg/dL L=0.0 H=0.3 1968-7 LOINC INDIRECT BILI 0.20 mg/dL L=0.00 H=1.10 1971-1 LOINC ALBUMIN 4.7 G/dL L=3.5 H=5.0 1751-7 LOINC CBC W/ DIFF - Collect Date/T mona: 11/07/2023 15:27 [facility] ID: [id number] [address] [place], [phone] LOINC: 41642-0 Test Value Unit Reference Range Code Code System Flag WBC 5.3 10^3uL L=4.8 H=10.8 RBC 4.11 10^6uL L=4.20 H=5.40 L HEMOGLOBIN 13.5 g/dL L=12.0 H=16.0 718-7 LOINC HEMATOCRIT 40.1 VOL% L=37.0 H=47.0 4544-3 LOINC MCV 97.6 fL L=81.0 H=99.0 MCH 32.8 pg L=27.0 H=32.0 H MCHC 33.7 g/dL L=32.0 H=36.0 PLATELETS 275 10^3uL L=100 H=400 53177-7 LOINC RDW 11.4 % L=11.7 H=15.5 L %GRAN 44.4 % L=40.0 H=70.0 76777-8 LOINC %LYMPH 44.4 % L=20.0 H=45.0 736-9 LOINC %MONO 7.7 % L=2.0 H=10.0 24041-2 LOINC %EOS 2.6 % L=0.0 H=6.0 713-8 LOINC %BASO 0.7 % L=0.0 H=3.0 706-2 LOINC #NEUT 2.4 10^3uL L=1.9 H=7.6 14914-0 LOINC #LYMPH 2.4 10^3uL L=0.9 H=4.9 41916-7 LOINC #MONO 0.4 10^3uL L=0.1 H=0.9 85816-7 LOINC #EOS 0.1 10^3uL L=0.0 H=0.6 712-0 LOINC #BASO 0.04 10^3uL L=0.00 H=0.10 07728-2 LOINC #IM GRANS 0.0 10^3uL L=0.0 H=7.0 43663-1 LOINC %IM GRANS 0.2 % L=0.0 H=5.0 91008-1 LOINC %NRB 0.0 L=0.0 H=0.2 91292-5 LOINC #NRB 0.000 L=0.000 H=0.012 77184-1 LOINC MANUAL DIFF NOT INDICATED RBC MORPH NOT INDICATED SARS COV2 PCR - Collect Date /Time: 11/07/2023 15:25 [facility] ID: [id number] [address] [place] [address], [id number] LOINC: 09484-6 Test Value Unit Reference Range Code Code System Flag SARS COV2 PCR NEGATIVE 64949-3 LOINC SENT TO [facility] RN? NO URINE DRUG SCREEN 12 PANEL R APID - Collect Date/Time: 11/07/2023 14:55 [facility] ID: [id number] [address] [place] [address], [phone] LOINC: Test Value Unit Reference Range Code Code System Flag THC NEGATIVE PCP NEGATIVE COCAINE NEGATIVE 23096-9 LOINC METHAMPHETAMINES NEGATIVE OPIATES NEGATIVE AMPHETAMINES POSITIVE 96202-6 LOINC A BENZO NEGATIVE 13620-3 LOINC TCA POSITIVE A METHADONE NEGATIVE BARBITUATES NEGATIVE OXYCODONE NEGATIVE URINALYSIS w/Microscopy/C&S if indicated - Collect Date/Time: 11/07/2023 14:55 [facility] ID: [id number] [address] [place] [address], [phone] LOINC: 76037-1 Test Value Unit Reference Range Code Code System Flag UR SOURCE CLEAN CATCH 18370-3 LOINC COLOR YELLOW YELLOW 5778-6 LOINC CLARITY CLEAR CLEAR 23711-9 LOINC SPEC GRAVITY 1.010 1.000-1.030 5811-5 LOINC PH 5.5 5.0 - 6.5 5803-2 LOINC LEUK EST NEGATIVE NEGATIVE 5799-2 LOINC NITRATE NEGATIVE NEGATIVE PROTEIN NEGATIVE NEGATIVE 5804-0 LOINC GLUCOSE NEGATIVE NEGATIVE 97300-6 LOINC KETONES NEGATIVE NEGATIVE 60265-5 LOINC UROBILINOGEN 0.2 NEGATIVE 5818-0 LOINC BILIRUBIN NEGATIVE NEGATIVE 47198-9 LOINC BLOOD NEGATIVE NEGATIVE 40269-9 LOINC WBC 0-2 0 - 2 87545-0 LOINC RBC 0-2 0 - 2 76642-7 LOINC EPITHELIAL RARE RARE-FEW 24023-2 LOINC BACTERIA NONE SEEN NONE SEEN 15728-3 LOINC MUCUS NONE SEEN NONE SEEN 8247-9 LOINC YEAST NOT PRESENT NOT PRESENT 96479-0 LOINC CASTS NONE SEEN 53962-1 LOINC CRYSTALS NONE SEEN 33447-7 LOINC CULTURE? NO 8251-1 LOINC DIAGNOSIS Social History Type Status Start Date End Date Code Code Syst em Smoking History Never smoker (Never Smoked) [id number] SNOMED CT Sex Female Hospital Discharge Instructions Should you have any questions prior to discharge, please contact a member of your healthcare team. If you have left the hospital and have any questions, please contact your primary care physician. Reason For Referral No Data Found Plan of Treatment No Data Found Encounters Encounter Diagnosis Start Date Code Code Sys tem Manic episode, unspecified 11/07/2023 S NOMED-CT Personal Care Team Section Performer Name Performer Role Active Date Inactive AGATHA Reese PCP - Primary care physician
--- OUTSIDE RECORDS SUMMARY | 2024-08-23 16:09 | XMS_ITS | Referral Summary ---
Author Organization [facility] Address [address] [place] [address] Care Team Providers Care Stranding Supervisor Name Role Phone Unavailable Primary Care Provider Unavailabl e Source Comments [facility],non-owned Affiliates and Associated Physician Practices is amultiple site organization consisting of ambulatory clinics and hospital sitesin [place], [place], [place] and [place]. This disclosure is being madepursuant to the Care Everywhere program and may not contain all information available regarding this patient. Last updated 18.[facility] Social History Tobacco Use Types Packs/Day Years Used Date Smoking Tobacco: Never Assessed Sex and Gender Information Value Date Recorded Sex Assigned at Not on file Gender Identity Not on file Sexual Orientation Not on file Plan of Treatment Not on file
--- OUTSIDE RECORDS SUMMARY | 2024-08-23 16:09 | XMS_ITS | Clinical Summary ---
Author Organization [facility] Address [facility] [place] [address] Care Team Providers Care Interlocker Name Role Phone Amee Milan Primary Care Provider [phone] Allergies Active Allergy Reactions Criticality Noted Date Comments Nsaids Other (see comment) Low 05/01/2023 History of gastric bypass should not take NSAIDS due to ulcer risk Medications lamoTRIgine (LAMICTAL) 100 MG tablet 1 tablet (100 mg total). 04/21/2021 Active PARoxetine (PAXIL) 40 MG tablet 06/02/2021 Active hydroCHLOROthia zide (HYDRODIURIL) 50 MG tablet 05/11/2021 Active levothyroxine (SYNTHROID) 50 MCG tablet Take 50 mcg by mouth every morning. Active QUEtiapine (SEROQUEL) 50 MG tablet Take 6 tablets (300 mg total) by mouth nightly at bedtime. 03/27/2023 Active Social History Tobacco Use Types Packs/Day Years Used Date Smoking Tobacco: Never Smokeless Tobacco: Never Alcohol Use Standard Drinks/Week Comments Not Asked 0 (1 standard drink = 0.6 oz pur e alcohol) rarely Comments No Sex and Gender Information Value Date Recorded Sex Assigned at Not on file Legal Sex Female 8:21 PM CDT Gender Identity Not on file Sexual Orientation Not on file Last Filed Vital Signs Vital Sign Reading Time Taken Comments Blood Pressure 124/60 12/01/2023 4:10 PM CDT Pulse 65 12/01/2023 4:10 PM CDT Temperature 36.6 C (97.8 F) 12/01/2023 3:07 PM CDT Respiratory Rate 18 12/01/2023 4:10 PM CDT Oxygen Saturation 98% 12/01/2023 4:10 PM CDT Inhaled Oxygen Concentration - - Weight 64.1 kg (141 lb 4 oz) 12/01/2023 3:07 PM CDT Height 160 cm (5' 3 ) 12/01/2023 3:07 PM CDT Body Mass Index 25.02 12/01/2023 3:07 PM CDT Plan of Treatment Health Maintenance Due Date Last Done Comments Colorectal Cancer Screening Colonoscopy (10 Years) 1950 Hepatitis C 1968 Mammogram Screening 1990 Zoster Vaccines (1 of 2) 2000 Annual Medicare Wellness Visit 2015 Dexa Scan (General) 2015 Pneumococcal Vaccine: 65+ Years (1 of 1 - PCV) 2015 DTaP, Tdap and Td Vaccines ( 2 - Td or Tdap) 10/14/2017 10/15/2007 COVID-19 Vaccine ( - 2023-2 5 season) 2024 12/19/2021, 05/31/2021, 04/17/2021 Influenza Adult (#1) 2024 RSV Immunization or 60+ Years (1 - 1-dose 75+ series) 2025 Meningococcal B Vaccine Aged Out No l onger eligible based on patient's age to complete this topic Meningococcal Vaccine Aged Out No nicole sallie eligible based on patient's age to complete this topic RSV Immunizations Under 20 Months Aged Out No longer eligible b ased on patient's age to complete this topic Insurance AETNA AETNA Care Teams Interlocker Relationship Specialty Start Date End Date Amee Milan PA [address] [place] [address] PCP - General PHYSICIAN CULL GRADER 03/22/22
--- OUTSIDE RECORDS SUMMARY | 2024-08-23 16:09 | XMS_ITS | Clinical Summary ---
Author Organization [facility] Address [address] [place] [address] Care Team Providers Care Online Content Editor Name Role Phone Unavailable Primary Care Provider Unavailabl e Source Comments [facility],non-owned Affiliates and Associated Physician Practices is amultiple site organization consisting of ambulatory clinics and hospital sitesin [place], [place], [place] and [place]. This disclosure is being madepursuant to the Care Everywhere program and may not contain all information available regarding this patient. Last updated 18.[facility] Social History Tobacco Use Types Packs/Day Years Used Date Smoking Tobacco: Never Assessed Sex and Gender Information Value Date Recorded Sex Assigned at Not on file Gender Identity Not on file Sexual Orientation Not on file Plan of Treatment Health Maintenance Due Date Last Done Comments BONE DENSITY TESTING 1950 COLOGUARD (AGES 45-75) - COL ON CA SCREENING 1950 COLON MONITORING 1950 COLONOSCOPY - COLON CA SCREENING 1950 CT COLONOGRAPHY - COLON CA SCREENING 1950 Colorectal Cancer Screening 1950 FIT - COLON CA SCREENING 1950 FLEX SIG - COLON CA SCREENING 1950 LIPID TESTING 1950 MAMMOGRAM 1950 HEPATITIS C SCREENING 06/08/1968 DTAP/TDAP/TD VACCINES (1 - Tdap) 1969 PNEUMOCOCCAL VACCINE 50+ (1 of 1 - PCV) 2000 ZOSTER VACCINE (1 of 2) 2000 COVID-19 VACCINE ( - 2023-2 5 season) 2024 INFLUENZA VACCINE (#1) 2024 DEPRESSION SCREENING 07/01/2024 MEDICARE AWV CALENDAR YEAR 2024 Respiratory Syncytial Virus (RSV) Vaccine Pt: or over 60 yrs (1 - 1-dose 75+ series) 2025 HEPATITIS B VACCINE Aged Out No longe r eligible based on patient's age to complete this topic HIB VACCINE Aged Out No longer eligi ble based on patient's age to complete this topic HPV VACCINE Aged Out No longer eligi ble based on patient's age to complete this topic MENINGOCOCCAL (Group B) VACCINE Aged Out No longer eligible based on patient's age to complete this topic MENINGOCOCCAL VACCINE Aged Out No nicole sallie eligible based on patient's age to complete this topic LINDA SORIA Personal/Family Spouse [address] [id number]
--- OUTSIDE RECORDS SUMMARY | 2024-08-23 16:09 | XMS_ITS | Referral Summary ---
Author Organization [address] Address [address] [place] [address] NELLIE Walker [address] Care Team Providers Care Powder Truck Driver Name Role Phone Jose Martin Dinero MD Primary Care Provider [phone] Amee Milan PA Unavailable [phone] Allergies Active Allergy Reactions Criticality Noted Date Comments Nsaids (Non-Steroidal Anti-Inflammatory Drug) Other (See comments) Low 05/01/2023 History of gastric bypass should not take NSAIDS due to ulcer risk Medications dextroamphetamine- amphetamine (ADDERALL) 15 mg tablet Take 1.3333 tablets (20 mg total) by mouth 2 (two) times a day Active hydroCHLOROthiazid e (HYDRODIURIL) 25 mg tablet Take 1 tablet (25 mg total) by mouth daily Active levothyroxine sodium (TIROSINT) 100 mcg capsule Take 1 capsule (100 mcg total) by mouth daily Active PARoxetine (PAXIL) 40 mg tablet Take 1 tablet (40 mg total) by mouth every morning for 14 days. 14 tablet 07/24/19 19 Active Additional Information Patient taking differently:40 mg oral Every morning,Indications: Anxiety with Depression, Reported on 04/30/2023 lamoTRIgine (LaMICtal) 100 mg tablet Take 1 tablet (100 mg total) by mouth 2 (two) times a day for 14 days. 28 tablet 07/24/19 19 Active Additional Information Patient taking differently:100 mg oralDaily, Reported on 04/30/2023 erythromycin (ILOTYCIN) ophthalmic ointment Place a 1/2 inch ribbon of ointment into the lower eyelid. 3 times a day. 3.5 g 01/27/20 Active moxifloxacin (VIGAMOX) 0.5 % ophthalmic solution Administer 1 drop into the right eye 4 (four) times a day 3 mL 01/27/20 Active cyanocobalamin, vitamin B-12, 500 mcg tablet,disintegrat ing Place 500 mcg under the tongue daily Active sucralfate (CARAFATE) 1 gram tablet Take 1 tablet (1 g total) by mouth 4 (four) times a day (with meals and nightly) Mix with 30 ml of water to make a suspension 120 tablet 11 05/01/20 Active pyridoxine (VITAMIN B-6) 100 mg tabletIndications: Pyridoxine Deficiency Take 1 tablet (100 mg total) by mouth daily for 3 doses 3 tablet 05/02/20 Active multivitamin with minerals tablet Take 1 tablet by mouth 2 (two) times a day 05/01/20 Active acetaminophen (TYLENOL) 325 mg tablet Take 2 tablets (650 mg total) by mouth every 6 (six) hours as needed for pain 30 tablet 05/01/20 Active omeprazole (PriLOSEC) 40 mg capsuleIndications :Treatment of Non-Bleeding Gastric Disorder Take 1 capsule (40 mg total) by mouth 2 (two) times a day 60 capsule 11 05/01/20 Active ondansetron ODT (ZOFRAN-ODT) 4 mg disintegrating tabletIndications: Prevention of Post-Operative Nausea and Vomiting Take 1 tablet (4 mg total) by mouth every 8 (eight) hours as needed for nausea or vomiting Place under tongue and let dissolve 20 tablet 2 05/01/20 Active amoxicillin-clavul anate (AUGMENTIN) 500-125 mg per tablet Take 1 tablet by mouth 3 (three) times a day 04/18/20 Active ferrous sulfate 325 mg (65 mg of elemental iron) tablet Take 1 tablet (325 mg total) by mouth 2 (two) times a day 04/21/20 Active QUEtiapine (SEROquel) 50 mg tablet TAKE 1 TABLET BY MOUTH ONCE DAILY AT BEDTIME FOR 90 DAYS 03/27/20 Active Active Problems Problem Noted Date Diagnosed Date Abdominal pain 04/27/2023 Conjunctival abrasion, left, initial encounter 0 09/06/2017 Immunizations Immunization Administration Dates Next Due Influenza, Quadrivalent, Hig h Dose, Preservative Free, Intrr 05/01/2023 Social History Tobacco Use Types Packs/Day Years Used Date Smoking Tobacco: Never Smokeless Tobacco: Never Alcohol Use Standard Drinks/Week Comments No 0 (1 standard drink = 0.6 oz pur e alcohol) Personal Safety Answer Date Recorded Have you ever been in or are you currently in a harmful physical or emotional relationship or is someone making you feel afraid or unsafe? 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 Gender Identity Not on file Sexual Orientation Not on file Last Filed Vital Signs Vital Sign Reading Time Taken Comments Blood Pressure 155/87 06/25/2023 10:14 PM RAW FINISH MILL OPERATOR Pulse 54 06/25/2023 10:14 PM RAW FINISH MILL OPERATOR Temperature 36.6 C (97.9 F) 06/25/2023 10:14 PM RAW FINISH MILL OPERATOR Respiratory Rate 14 06/25/2023 10:14 PM RAW FINISH MILL OPERATOR Oxygen Saturation 97% 06/25/2023 10:14 PM RAW FINISH MILL OPERATOR Inhaled Oxygen Concentration - - Weight 60.8 kg (134 lb) 06/25/2023 5:44 PM RAW FINISH MILL OPERATOR Height 160 cm (5' 3 ) 06/25/2023 5:44 PM RAW FINISH MILL OPERATOR Body Mass Index 23.74 06/25/2023 5:44 PM RAW FINISH MILL OPERATOR Plan of Treatment Not on file Insurance [facility] MDCR HMO REF [facility] MEDIC[facility] Address: [facility] [address] [place] [address] MEDICARE SOLUTIONS [facility] MEDICARE Address: [address] [address] [place] [address] [facility] MDCR HMO REF [facility] MEDICARE Address: [id number] [place] [address] MEDICARE SOLUTIONS MEDICARE SOLUTIONS Advance Directives For more information, please contact: [phone] * Full Code (Latest Code Status on File) Date Activated Date Inactivated Comments 04/27/2023 10:01 PM 05/01/2023 8:51 PM Care Teams Powder Truck Driver Relationship Specialty Start Date End Date Jose Martin Dinero MD PCP - General Internal Medicine 06/25/23 Amee Milan PA [address] [place] [id number] Emergency Medicine 06/25/23
--- OUTSIDE RECORDS SUMMARY | 2024-08-23 16:09 | XMS_ITS ---
Author Organization [facility] Address [address] [address] [address] [place] [address] Care Team Providers Care Solar Sales Representative And Assessor Name Role Phone Alvarez, Flaquito Unavailable [phone] REASON FOR VISIT pt walked in the office Medications Medication SIG (Take, Route, Fr equency, Duration) Notes Start Date End Date Status Qelbree 200 MG 1 capsule Orally Onc e a day for 30 days 07/07/2024 10/02/2024 Active Social History Sex Assigned At : Social History Observation Description Sex Assigned At Female Encounters Encounter Location Date Provider Diagnosis [facility] [address] [facility] [facility] [address] [address] [facility] [address] [place] [address] 08/03/2024 Flaquito Alvarez Attention-deficit hyperactivity disorder, combined type F90.2 Assessments Encounter Date Diagnosis (ICD Code) Assessment Notes Treatment Notes Treatment Clinical Notes Section Notes 08/03/2024 Attention-deficit hyperactivity disorder, combined type (ICD-10 - F90.2) Plan Of Treatment Medication Medication Name Sig Start Date Stop Date Notes Qelbree 200 MG 1 capsule Orally Once a day for 30 days 12/202410/02/2024 Next Appt Details Provider Name:Flaquito romero, 09/04/2024 11:30:00 AM, [address], [address], [place], [address], Progress Notes * LINDA DIASDOB:1949 (74 yo F)Acc No.[id number]:08/03/2024 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
--- OUTSIDE RECORDS SUMMARY | 2024-08-23 16:09 | XMS_ITS | Patient Health Summary ---
Author Organization [facility] Address [address] [place] [address] Care Team Providers Care Communications Systems Engineer Name Role Phone Unavailable Primary Care Provider Unavailabl e Note from [facility],non-owned Affiliates and Associated Physician Practices is amultiple site organization consisting of ambulatory clinics and hospital sitesin [place], [place], [place] and [place]. This disclosure is being madepursuant to the Care Everywhere program and may not contain all information available regarding this patient. Last updated 18.[facility] Social History Tobacco Use Types Packs/Day Years Used Date Smoking Tobacco: Never Assessed Sex and Gender Information Value Date Recorded Sex Assigned at Not on file Gender Identity Not on file Sexual Orientation Not on file
--- OUTSIDE RECORDS SUMMARY | 2024-08-23 16:09 | XMS_ITS | Clinical Summary ---
Author Organization [address] Address [address] [place] [address] NELLIE Walker [address] Care Team Providers Care Assistant At Surgery Name Role Phone Jose Martin Dinero MD Primary Care Provider [phone] Amee Milan PA Unavailable Allergies Active Allergy Reactions Criticality Noted Date [...] Hig h Dose, Preservative Free, Intrr 05/01/2023 Surgical History Surgery Date Site/Laterality Comments BARIATRIC SURGERY CHOLECYSTECTOMY GALLBLADDER SURGERY Medical History Medical History Date Comments Hypothyroidism Hypertension Attention deficit disorder (ADD) Manic depression (HCC) Social History Tobacco Use Types Packs/Day Years [...] on file Legal Sex 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 Gender Identity Not on file Sexual Orientation Not on file Obstetrics History Last Filed Vital Signs Vital Sign Reading Time Taken Comments Blood Pressure 155/87 06/25/2023 10:14 PM FRATERNITY ADVISER Pulse 54 06/25/2023 10:14 PM FRATERNITY ADVISER Temperature 36.6 C (97.9 F) 06/25/2023 10:14 PM FRATERNITY ADVISER Respiratory Rate 14 06/25/2023 10:14 PM FRATERNITY ADVISER Oxygen Saturation 97% 06/25/2023 10:14 PM FRATERNITY ADVISER Inhaled Oxygen Concentration - - Weight 60.8 kg (134 lb) 06/25/2023 5:44 PM FRATERNITY ADVISER Height 160 cm (5' 3 ) 06/25/2023 5:44 PM FRATERNITY ADVISER Body Mass Index 23.74 06/25/2023 5:44 PM FRATERNITY ADVISER Plan of Treatment Health Maintenance Due Date Last Done Comments Breast Cancer Screening-Mammogram 1950 Colon Cancer Screening-Colonoscopy 1950 Depression Screening 1950 Hepatitis C Screening 1950 Osteoporosis Screening-Bone Density Scan 1950 DTaP/Tdap/Td Vaccine (1 - Tdap) 1961 Hepatitis B Screening 1968 Pneumococcal vaccine 65+ (1 of 1 - PCV) 2000 Zoster Vaccine (1 of 2) 2000 Well Visit 65+ 2015 Influenza Vaccine (#1) 2024 05/01/2023 Fall Risk Assessment 05/01/2024 05/01/2023 Insurance [facility] HMO REF MEDICARE SOLUTIONS [facility] MDCR HMO REF MEDICARE SOLUTIONS MEDICARE SOLUTIONS Advance Directives For more information, please contact: [phone] * Full Code (Latest Code Status on File) Date Activated Date Inactivated Comments 04/27/2023 10:01 PM 05/01/2023 8:51 PM Care Teams Assistant At Surgery Relationship Specialty Start Date End Date Jose Martin Dinero MD PCP - General Internal Medicine 06/25/23 Amee Milan PA [address] [place] [address] Emergency Medicine 06/25/23
[2024-08-23 16:12] VITALS: BP 157/83; PULSE 81; RESP 16; TEMP 36.8; O2SAT 98
--- NOTE | 2024-08-23 16:20 | ED_ITS ---
HPI - Psych General Chief Complaint: Psychiatric Symptoms Stated Complaint: want help with business problems--psych Source: patient Mode of arrival: ambulatory Limitations: no limitations History of Present Illness HPI Narrative: patient is a 74-year-old female known to the emergency room for recurrent visits due to her stress. Her stress is financial related changes. She is here with similar symptoms. No suicide or homicide ideations. She is not manic. She is not having psychosis. She wanted to know if we can give her a sedative to take rest for a few days. MD complaint: other ( Anxious /stress) Onset (ago): day(s) (1; chronic) Duration: constant History of same: Yes Relieving factors: none Exacerbating factors: none Context: other ( patient claims use of Adderall she buys from another person on the street) Associated psychiatric symptoms: none Associated symptoms: denies other symptoms Treatments prior to arrival: other ( patient has home medicine from the psychiatrist she apparently uses daily and compliance) Related Data Home Medications ?Medication ?Instructions ?Recorded ?Confirmed ?Last Taken ?Type dextroamphetamine-amphetamine 7.5 20 mg PO BID 10/20/19 03/27/24 Unknown History mg tablet hydrochlorothiazide 50 mg tablet 50 mg PO DAILY 10/20/19 03/27/24 Unknown Hist ory levothyroxine 175 mcg tablet 175 mcg PO DAILY 01/25/23 03/27/24 Unknown History paroxetine HCl 30 mg tablet 30 mg PO DAILY 01/25/23 03/27/24 Unknown History quetiapine 25 mg tablet 20 mg PO HS 01/25/23 03/27/24 Unknown History quetiapine 50 mg tablet 200 mg PO HS 01/25/23 03/27/24 Unknown History Allergies Allergy/AdvReac Type Severity Reaction Status Date / Time NSAIDS (Non-Steroidal AdvReac Ulcers Verified 03/27/24 19:48 Anti-Inflamma Review of Systems Review of Systems: All systems reviewed & are unremarkable except as noted in HPI and below Constitutional: Constitutional: Reports no additional constitutional co mplaints Eyes: Eyes: Reports no additional eye complaints ENT: Reports system reviewed and no additional complaints, except as documented Cardiovascular: Cardiovascular: Reports no additional cardiovascular complaints Respiratory: Respiratory: Reports no additional respiratory complaints Gastrointestinal: Gastrointestinal: Reports no additional gastrointestinal complaints Genitourinary: Genitourinary: Reports no additional female genitourinary complaints Musculoskeletal: Musculoskeletal: Reports no additional musculoskeletal complaints Integumentary/Breasts: Skin/Breast: Reports system reviewed and no additional complaints, except as docu Neurologic: Reports system reviewed and no additional complaints, except as documented Psychiatric: Psychiatric: Reports no additional psychiatric complaints Endocrine: Endocrine: Reports no additional endocrine complaints Hematologic/Lymphatic: Hematologic/Lymphatic: Reports no additional hematologic/lymphatic complaints Allergic/Immunologic: Allergic/Immunologic: Reports no additional allergic/immunologic complaints PMFSH Past Medical History Medical History Hypothyroidism Hypertension Depression Surgical History Surgical History History of cholecystectomy H/O bariatric surgery Family History Family History Mother Hypertension Carcinoma of colon Social History Social History Smoking status: Never smoker Alcohol intake: never Alcohol use details: occasional Substance use: never Substance use type: does not use Gender identity (if verbalized by the patient): Female Spiritual care concerns: No Agree to blood products: Yes Exam Const: General: healthy appearing Nutritional Appearance: well nourished Orientation/consciousness: patient oriented x3 Limitations: no limitations HENMT: Head: normal to inspection Ears: external ears normal Face/Nose/Sinus: Normal external nose present Eyes: Conjunctivae: conjunctivae normal Pupils: Equal, round and reactive pupils present EOM: EOMs intact bilaterally Neck: Neck: normal visual inspection Chest: Chest palpation & inspection: normal inspection of the chest Resp: Effort & Inspection: normal respiratory effort and not labored Auscultation: clear to auscultation bilaterally and no crackles Cardio: Rate: regular rate Rhythm: regular rhythm Heart sounds: no murmurs GI: Inspection: non-distended GI Palp: Yes Soft to palpation and No Tenderness to palpation present (GI) Auscultation: normal bowel sounds : General: Yes bladder normal to palpation Back/Spine/Pelvis: Back: no CVA tenderness Skin: General skin exam: normal color Rashes: no rashes Wounds: no wounds Neuro: General: patient oriented x3 Cranial nerves: Yes Nystagmus not pr esent Speech: normal speech Gait exam (Neuro): Normal gait present Extrem: General: normal to inspection Psych: Mental Status: mental status grossly normal Affect: No normal affect Attitude: cooperative Other: anxious; no dony; no psychosis; no suicide or homicide ideation; she just has stress with her financial pills which is recurrent Course Vital Signs Vital signs: Vital Signs Temperature 36.8 C 08/23/24 16:12 Pulse Rate 81 08/23/24 16:12 Respiratory Rate 16 08/23/24 16:12 Blood Pressure 157/83 H 08/23/24 16:12 Pulse Oximetry 98 08/23/24 16:12 Oxygen Delivery Room Air 08/23/24 16:12 Temperature 36.8 C 08/23/24 16:12 Pulse Rate 81 08/23/24 16:12 Respiratory Rate 16 08/23/24 16:12 Blood Pressure 157/83 H 08/23/24 16:12 Pulse Oximetry 98 08/23/24 16:12 Oxygen Delivery Room Air 08/23/24 16:12 MDM - Psych MDM Narrative Medical decision making narrative: patient is a 74-year-old female with recurrent stress due to financial issues. We will evaluate the patient. Patient was deemed stable and we were unable to give her medicine at this time as there is no emergency and she is calm. She initially had some anxiety and stress but felt better by time of discharge. No suicide or homicide ideation. No signs of dony or psychosis. No signs of infection. Discharge Plan Discharge Clinical Impression: Acute reaction to stress Patient Disposition: Home, Self-Care Condition: Improved Instructions: Stress (ED) Additional Instructions: please follow-up with the psychiatrist in the next week. Make sure to come to the emergency room with any thoughts of suicide. Patient Language: Chadian Prescriptions: No Action simethicone 80 mg Tablet,Chewable 80 mg PO QID Qty: 30 0RF ondansetron 4 mg tablet,disintegrating 4 mg PO Q6H PRN (Reason: nausea and vomiting) Qty: 14 0RF orphenadrine citrate 100 mg tablet extended release 100 mg PO BID PRN (Reason: pain) Qty: 20 0RF dextroamphetamine-amphetamine 7.5 mg tablet 20 mg PO BID hydrochlorothiazide 50 mg tablet 50 mg PO DAILY lamotrigine 200 mg tablet 200 mg PO DAILY Qty: 90 0RF quetiapine 25 mg tablet 20 mg PO HS levothyroxine 175 mcg tablet 175 mcg PO DAILY paroxetine HCl 30 mg tablet 30 mg PO DAILY quetiapine 50 mg tablet 200 mg PO HS Follow-up/Referrals: Bjorn,DINORAH Lubin [Primary Care Provider] - Time of Disposition: 17:04
--- OUTSIDE RECORDS SUMMARY | 2024-08-23 16:20 | XMS_ITS | Patient Health Record ---
Author Organization [facility] [employer] Address [address] [place] [address] Care Team Providers Care Network Operations Technician Name Role Phone Flaquito Alvarez Unavailable [phone] Migration, Provider Unavailable Unavailable Allergies No Known Allergies Results Component Value Reference Range Notes DRUG SCREEN, 14 DRUGS (DETEC TIMED), URINE Reviewed date:10/15/2023 12:00:00 AM Interpretation: Performing Lab: Notes/Report: Amphetamine positive Barbiturates negative Benzodiazipine negative Buprenorphine negative Cocaine negative MDMA/Ectasy negative Methadone negative Methamphetamine negative Morphine negative note 90, pos amp Oxycodone negative Phenocyclidine negative THC negative UDT Reviewed date:07/08/2024 11:15:18 AM Interpretation: Performing Lab: Notes/Report: THC N 0 - 50 ng/ml Cocaine N 0 - 300 ng/ml Amphetamine POS 0 - 1000 ng/ml Buprenorphine (BUP) N 0 - 10 ng/ml Secobarbital (Bar) N 0 - 300 ng/ml Oxazepam (BZO) N 0 - 300 ng/ml 1-tgfzaonvan-8,8-gidmmued-5, 3-diphenylpyrrolidine (EDDP) N 0 - 300 ng/ml Methamphetamine (MET) N 0 - 1000 ng/ml Methylenedioxymethamphetamine (MDMA) N 0 - 500 ng/ml Morphine (MOP 300/TNA9831) N 0 - 300 ng/ml Methadone (MTD) N 0 - 300 ng/ml Phencyclidine (PCP) N 0 - 25 ng/ml Propoxyphene (PPX) N 0 - 300 ng/ml Nortriptyline (TCA) N 0 - 1000 ng/ml Oxycodone N 0 - 300 ng/ml DRUG SCREEN, 14 DRUGS (DETEC TIMED), URINE Reviewed date:08/27/2023 12:00:00 AM Interpretation: Performing Lab: Notes/Report: Amphetamine positive Barbiturates negative Benzodiazipine negative Buprenorphine negative Cocaine negative MDMA/Ectasy negative Methadone negative Methamphetamine negative Morphine negative note +AMP Oxycodone negative Phenocyclidine negative THC negative Reason For Referral No Information Medications Medication SIG (Take, Route, Frequency, Duration) Notes Start Date End Date Status PARoxetine HCl 30 MG 1 tablet Oral Once a day for 30 days Active Potassium Chloride ER 20 MEQ Oral 11/05/2023 Active QUEtiapine Fumarate 100 MG 1 tablet in the morning Orally Once a day for 30 days Active Magnesium *Pick strength-form from [facility] for eRX* 11/05/2023 Active Vitamin B-6 100 MG Oral 11/05/2023 Active CALCIUM CITRATE MALATE 250 MG-VITAMIN D3 2.5 MCG (100 UNIT) TABLET *Reorder from [facility] for eRx and Interaction Alerts* 11/05/2023 Active Amphetamine-Dextroampheta mine 20 MG Oral 11/05/2023 Active QUEtiapine Fumarate 200 MG 1 tablet at bedtime Oral Once a day for 30 days Active Levothyroxine Sodium 150 MCG Oral 11/05/2023 Active Qelbree 200 MG 1 capsule once a day for 7 days, 2 capsules once a day for 30 days Orally see sign for 30 days 07/07/2024 Active hydroCHLOROthiazide 50 MG Oral 11/05/2023 Active Immunizations Vaccine Route Administration Date Status Comme nts MMR Unknown 10/15/2007 Administered Pfizer Biontech Covid-19 Vac cine 2nd dose Unknown 04/17/2021 Administered Pfizer Biontech Covid-19 Vac cine 2nd dose Unknown 05/31/2021 Administered Pfizer Biontech Covid-19 Vac cine 2nd dose Unknown 12/19/2021 Administered Tdap Unknown 10/15/2007 Administered Social History Sex Assigned At : Social History Observation Description Sex Assigned At Female Problems Problem Type SNOMED Code ICD Code Onset Dates Problem Status W/U Status Risk Notes Problem Mixed bipolar affective disorder, moderate (906037837) Bipolar disorder, current episode mixed, moderate (F31.62) Active confirmed Problem Generalized anxiety disorder (92575574) Generalized anxiety disorder (F41.1) Active confirmed Problem Attention deficit hyperactivity disorder, combined type (51710438) Attention-deficit hyperactivity disorder, combined type (F90.2) Active confirmed Vital Signs Heart Rate 74 /min 08/07/2024 Height-cm 160.02 cm 08/07/2024 Blood pressure diastolic 66 mm Hg 08/07/2024 Weight-kg 69.4 kg 08/07/2024 Height 63.00 in 08/07/2024 Blood pressure systolic 140 mm Hg 08/07/2024 Weight 153 lbs 08/07/2024 BMI 27.1 kg/m2 08/07/2024 Encounters Encounter Location Date Provider Diagnosis [facility] [address] [place] [address] 08/07/2024 Flaquitomona Alvarez Bipolar disorder, current episode mixed, moderate F31.62 ; Generalized anxiety disorder F41.1 ; Other chcf (current) drug therapy Z79.899 and Attention-deficit hyperactivity disorder, combined type F90.2 [facility] [address] [place] [address] 09/18/2023 Provider Migration Attention-deficit hyperactivity disorder, predominantly inattentive type F90.0 [facility] [address] [place] [address] 10/15/2023 Flaquito Alvarez Bipolar disorder, current episode mixed, moderate F31.62 ; Attention-deficit hyperactivity disorder, predominantly inattentive type F90.0 ; Generalized anxiety disorder F41.1 and Other termite inspector (current) drug therapy Z79.899 [facility] [address] [place] [address] 10/18/2023 Provider Migration Generalized anxiety disorder F41.1 [email or web address] [facility] [address] [place] [address] 11/05/2023 Flaquito Alvarez Generalized anxiety disorder F41.1 ; Bipolar disorder, current episode mixed, moderate F31.62 ; Attention-deficit hyperactivity disorder, predominantly inattentive type F90.0 and Other termite inspector (current) drug therapy Z79.899 [facility] [address] [place] [address] 11/14/2023 Provider Migration Attention-deficit hyperactivity disorder, predominantly inattentive type F90.[address] [facility], [facility] [address] [place] [address] 11/21/[address] [facility], [facility] [address] [place] [address] 12/05/2023 Flaquito Alvarez Bipolar disorder, current episode mixed, moderate F31.62 ; Generalized anxiety disorder F41.1 and Other chcf (current) drug therapy Z79.[address] [facility], [facility] [address] [place] [address] 07/07/2024 Flaquito Alvarez Bipolar disorder, current episode mixed, moderate F31.62 ; Generalized anxiety disorder F41.1 ; Other chcf (current) drug therapy Z79.899 and Attention-deficit hyperactivity disorder, combined type F90.[address] [facility], [facility] [address] [place] [address] 09/24/2023 Provider Migration [facility], [facility] [address] [place] [address] 10/17/2023 Provider [facility], [facility] [address] [place] [address] 10/21/2023 Provider Migration [facility], [facility] [address] [place] [address] 10/22/2023 Provider [facility], [facility] [address] [place] [address] 10/25/2023 Provider [facility], [facility] [address] [place] [address] 10/29/2023 Provider Migration [facility], [facility] [address] [place] [address] 11/01/2023 Provider [facility], [facility] [address] [place] [address] 11/14/2023 Provider [facility], [facility] [address] [place] [address] 11/16/2023 Provider [facility], [facility] [address] [place] [address] 11/17/2023 Provider [facility], [facility] [address] [place] [address] 12/06/[address] [facility] [address] [place] [address] 12/06/[address] Flaquito Al[address] [facility], [facility] [address] [place] [address] 12/20/[address]quito Al[address] [facility], [facility] [address] [place] [address] 12/30/[address] Flaquito Al[address] [facility], [facility] [address] [place] [address] 01/09/2024 Flaquito Alvarez [facility], [facility] [address] [place] [address] 02/04/2024 Flaquito Alvarez Generalized anxiety disorder F41.[address] [facility] [facility] [address] [place] [address] 08/03/2024 Flaquito Alvarez Attention-deficit hyperactivity disorder, combined type F90.2 Assessments Encounter Date Diagnosis (ICD Code) Assessment Notes Treatment Notes Treatment Clinical Notes Section Notes 02/04/2024 Generalized anxiety disorder (ICD-10 - F41.1) 07/07/2024 Bipolar disorder, current episode mixed, moderate [...] Patient was previously seeing a provider at [facility]. Plan: - Obtain records from the previous provider. - Schedule a follow-up appointment in one month to assess the effectiveness of the new medication regimen and address any concerns. 7. Pharmacy: - Patient uses [facility] in [place]. Plan: - Send prescriptions for Qelbree, quetiapine, [...] Patient was previously seeing a provider at [facility]. Plan: - Obtain records from the previous provider. - Schedule a follow-up appointment in one month to assess the effectiveness of the new medication regimen and address any concerns. 7. Pharmacy: - Patient uses [facility] in [place]. Plan: - Send prescriptions for Qelbree, quetiapine, and Paxil to the patient's preferred pharmacy. 08/03/2024 Attention-defici t hyperactivity disorder, combined type (ICD-10 - F90.2) 08/07/2024 Bipolar disorder, current episode mixed, moderate (ICD-10 - F31.62) 09/18/2023 Attention-defici t hyperactivity disorder, predominantly inattentive type (ICD-10 - F90.0) 10/15/2023 Bipolar disorder, current episode mixed, moderate (ICD-10 - F31.62) 10/15/2023 Generalized anxiety disorder (ICD-10 - F41.1) 10/15/2023 Attention-defici t hyperactivity disorder, predominantly inattentive type (ICD-10 - F90.0) 10/15/2023 Other chcf (current) drug therapy (ICD-10 - Z79.899) 10/18/2023 Generalized anxiety disorder (ICD-10 - F41.1) 11/05/2023 Bipolar disorder, current episode mixed, moderate (ICD-10 - F31.62) 11/05/2023 Generalized anxiety disorder (ICD-10 - F41.1) 11/05/2023 Attention-defici t hyperactivity disorder, predominantly inattentive type (ICD-10 - F90.0) 11/05/2023 Other termite inspector (current) drug therapy (ICD-10 - Z79.899) 11/14/2023 Attention-defici t hyperactivity disorder, predominantly inattentive type (ICD-10 - F90.0) 12/05/2023 Bipolar disorder, current episode mixed, moderate (ICD-10 - F31.62) 12/05/2023 Generalized anxiety disorder (ICD-10 - F41.1) 12/05/2023 Other chcf (current) drug therapy (ICD-10 - Z79.899) 08/07/2024 Generalized anxiety disorder (ICD-10 - F41.1) 07/07/2024 Other termite inspector (current) drug therapy (ICD-10 - Z79.899) 1. [...] Patient was previously seeing a provider at [facility]. Plan: - Obtain records from the previous provider. - Schedule a follow-up appointment in one month to assess the effectiveness of the new medication regimen and address any concerns. 7. Pharmacy: - Patient uses [facility] in [place]. Plan: - Send prescriptions for Qelbree, quetiapine, and Paxil to the patient's preferred pharmacy. 08/07/2024 Other termite inspector (current) drug therapy (ICD-10 - Z79.899) 07/07/2024 Attention-defici t hyperactivity disorder, combined type [...] Patient was previously seeing a provider at [facility]. Plan: - Obtain records from the previous provider. - Schedule a follow-up appointment in one month to assess the effectiveness of the new medication regimen and address any concerns. 7. Pharmacy: - Patient uses [facility] in [place]. Plan: - Send prescriptions for Qelbree, quetiapine, and Paxil to the patient's preferred pharmacy. 08/07/2024 Attention-defici t hyperactivity disorder, combined type (ICD-10 - F90.2) do not recommend stimulants Plan Of Treatment Next Appt Details Provider Name:Flaquito romero, 09/04/2024 11:30:00 AM, [address], [facility] [address], [place], [address], Insurance Providers Payer Name Payer Address Payer Phone Subscriber Number Group Number Insured Name Patient Relationship to Insured Coverage Start Date Coverage End Date [employer] Medicare Replacement/ Advantage - Ppo [address] [place] [address] [id number] LINDA DIAS Self - [facility] the [facility] [address] [place] [address] [id number] [id number] DIAS Self - patient is the insured Medical (General) History Medical History History ICD Code Problems: Attention deficit hyperactivit y disorder Attention deficit hyperactivity disorder , predominantly inattentive type Bipolar disorder Generalized anxiety disorder Long-term drug therapy , Surgical History Surgery Date(Month/Year) Any surgical history Gastric bypass for obesity (69046) per h er memory, not exact date 01/30/1988
--- OUTSIDE RECORDS SUMMARY | 2024-08-23 16:20 | XMS_ITS ---
Author Organization Unknown Address [address] [place] [phone] Phone Care Team Providers Care Automobile Taillight Assembler Name Role Phone BERNADETTE COLON Attending Unavailable ABELINO SNIDER PA-C Primary Unavailable Results BASIC METABOLIC PANEL - Tahmina ect Date/Time: 11/07/2023 15:27 [facility] ID: [id number] [place], [place], [phone] LOINC: 21757-2 Test Value Unit Reference Range Code Code System Flag FASTING UNKNOWN BUN 35 mg/dL L=7 H=20 3094-0 LOINC H CREATININE 1.00 mg/dL L=0.52 H=1.04 2160-0 LOINC GLUCOSE 119 mg/dL L=74 H=106 2345-7 LOINC H CALCIUM 10.1 mg/dL L=8.3 H=10.5 20311-8 LOINC SODIUM 137 mmol/L L=132 H=144 2951-2 LOINC POTASSIUM 4.1 mmol/L L=3.5 H=5.1 2823-3 LOINC CHLORIDE 101 mmol/L L=98 H=107 2075-0 LOINC CO2 27.0 mmol/L L=22.0 H=30.0 2028-9 LOINC ANION GAP 13 L=10 H=20 85709-2 LOINC BUN/CREAT 35.0 3097-3 LOINC AGE 73 65707-5 LOINC eGFR NON-AFR 58 ml/min eGFR AFR AMER 70 ml/min MAGNESIUM - Collect Date/Rui e: 11/07/2023 15:27 [facility] ID: [id number] [address] [place] [address], [phone] LOINC: 11671-4 Test Value Unit Reference Range Code Code System Flag MAGNESIUM 1.9 mg/dL L=1.6 H=2.3 75265-6 LOINC OD [id number] YLATE-ETOH - Collect Date/Time: 11/07/2023 15:27 [facility] ID: [id number] [address] [place] [address], [phone] LOINC: Test Value Unit Reference Range Code Code System Flag ACETAMINOPHEN < 10 ug/dL L=0 H=10 3298-7 LOINC SALICYLATE < 1 mg/dL L=0 H=5 4024-6 LOINC ALCOHOL < 10.00 mg/dL L=0.00 H=50.00 5643-2 LOINC TSH - Collect Date/Time: 03/2024 15:27 [facility] ID: [id number] [address] [place] [address], [phone] LOINC: 03508-1 Test Value Unit Reference Range Code Code System Flag TSH. 44.500 uIU/L L=0.470 H=4.680 20268-2 LOINC H LIVER PROFILE - Collect Date /Time: 11/07/2023 15:27 [facility] ID: [id number] [address] [place] [address], [phone] LOINC: 85598-0 Test Value Unit Reference Range Code Code [...] DIFF - Collect Date/T mona: 11/07/2023 15:27 [facility] ID: [id number] [address] [place], [place], [phone] LOINC: 96218-3 Test Value Unit Reference Range Code Code System Flag WBC 5.3 10^3uL L=4.8 H=10.8 RBC 4.11 10^6uL L=4.20 H=5.40 L HEMOGLOBIN 13.5 g/dL L=12.0 H=16.0 718-7 LOINC HEMATOCRIT 40.1 VOL% L=37.0 H=47.0 4544-3 LOINC MCV 97.6 fL L=81.0 H=99.0 MCH 32.8 pg L=27.0 H=32.0 H MCHC 33.7 g/dL L=32.0 H=36.0 PLATELETS 275 10^3uL L=100 H=400 62194-0 LOINC RDW 11.4 % L=11.7 H=15.5 L %GRAN 44.4 % L=40.0 H=70.0 94550-1 LOINC %LYMPH 44.4 % L=20.0 H=45.0 736-9 LOINC %MONO 7.7 % L=2.0 H=10.0 58796-9 LOINC %EOS 2.6 % L=0.0 H=6.0 713-8 LOINC %BASO 0.7 % L=0.0 H=3.0 706-2 LOINC #NEUT 2.4 10^3uL L=1.9 H=7.6 43215-4 LOINC #LYMPH 2.4 10^3uL L=0.9 H=4.9 13035-5 LOINC #MONO 0.4 10^3uL L=0.1 H=0.9 93237-2 LOINC #EOS 0.1 10^3uL L=0.0 H=0.6 712-0 LOINC #BASO 0.04 10^3uL L=0.00 H=0.10 37561-8 LOINC #IM GRANS 0.0 10^3uL L=0.0 H=7.0 50103-6 LOINC %IM GRANS 0.2 % L=0.0 H=5.0 74079-6 LOINC %NRB 0.0 L=0.0 H=0.2 98422-8 LOINC #NRB 0.000 L=0.000 H=0.012 64045-6 LOINC MANUAL DIFF NOT INDICATED RBC MORPH NOT INDICATED SARS COV2 PCR - Collect Date /Time: 11/07/2023 15:25 [facility] ID: [id number] [address] [place] [address], [phone] LOINC: 15895-3 Test Value Unit Reference Range Code Code System Flag SARS COV2 PCR NEGATIVE 20197-2 LOINC SENT TO [facility] RN? NO URINE DRUG SCREEN 12 PANEL R APID - Collect Date/Time: 11/07/2023 14:55 [facility] ID: [id number] [address] [place] [address], [phone] LOINC: Test Value Unit Reference Range Code Code System Flag THC NEGATIVE PCP NEGATIVE COCAINE NEGATIVE 00416-8 LOINC METHAMPHETAMINES NEGATIVE OPIATES NEGATIVE AMPHETAMINES POSITIVE 67973-6 LOINC A BENZO NEGATIVE 86506-0 LOINC TCA POSITIVE A METHADONE NEGATIVE BARBITUATES NEGATIVE OXYCODONE NEGATIVE URINALYSIS w/Microscopy/C&S if indicated - Collect Date/Time: 11/07/2023 14:55 [facility] ID: [id number] [address] [place] [address], [phone] LOINC: 38250-5 Test Value Unit Reference Range Code Code System Flag UR SOURCE CLEAN CATCH 69719-4 LOINC COLOR YELLOW YELLOW 5778-6 LOINC CLARITY CLEAR CLEAR 07128-2 LOINC SPEC GRAVITY 1.010 1.000-1.030 5811-5 LOINC PH 5.5 5.0 - 6.5 5803-2 LOINC LEUK EST NEGATIVE NEGATIVE 5799-2 LOINC NITRATE NEGATIVE NEGATIVE PROTEIN NEGATIVE NEGATIVE 5804-0 LOINC GLUCOSE NEGATIVE NEGATIVE 99400-7 LOINC KETONES NEGATIVE NEGATIVE 82375-8 LOINC UROBILINOGEN 0.2 NEGATIVE 5818-0 LOINC BILIRUBIN NEGATIVE NEGATIVE 27148-6 LOINC BLOOD NEGATIVE NEGATIVE 82570-4 LOINC WBC 0-2 0 - 2 58899-0 LOINC RBC 0-2 0 - 2 90864-1 LOINC EPITHELIAL RARE RARE-FEW 10113-2 LOINC BACTERIA NONE SEEN NONE SEEN 70399-2 LOINC MUCUS NONE SEEN NONE SEEN 8247-9 LOINC YEAST NOT PRESENT NOT PRESENT 87698-4 LOINC CASTS NONE SEEN 74180-6 LOINC CRYSTALS NONE SEEN 82688-3 LOINC CULTURE? NO 8251-1 LOINC DIAGNOSIS Social History Type Status Start Date End Date Code Code Syst em Smoking History Never smoker (Never Smoked) 600806909 SNOMED CT Sex Female Hospital Discharge Instructions [...]
== END 2024-08-23 17:07 | disposition home or self-care (01) ==
PROVIDERS: Emergency Provider Emergency Medicine; PCP Physician Assistant
DX: F43.0 Acute stress reaction (principal); E03.9 Hypothyroidism, unspecified; I10 Essential (primary) hypertension
CPT/HCPCS: 99281

== ENCOUNTER 2024-08-25 13:47 | Emergency (ER) | payer OTHER, MEDICARE, SELFPAY ==
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
[2024-08-25 13:47] VITALS: BP 148/71; PULSE 67; RESP 16; TEMP 36.7; O2SAT 96
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
[2024-08-25 14:49] VITALS: BP 153/74; PULSE 64; RESP 17; TEMP 36.7; O2SAT 96
--- OUTSIDE RECORDS SUMMARY | 2024-08-25 15:47 | XMS_ITS | Patient Health Summary ---
Author Organization [facility] Address [address] [place] [address] Care Team Providers Care Grazing Aide Name Role Phone Unavailable Primary Care Provider Unavailabl e Note from [facility],non-owned Affiliates and Associated Physician Practices is amultiple site organization consisting of ambulatory clinics and hospital sitesin [place], [place], [place] and [place]. This disclosure is being madepursuant to the Care Everywhere program and may not contain all information available regarding this patient. Last updated 18.[facility] Social History Tobacco Use Types Packs/Day Years Used Date Smoking Tobacco: Never Assessed Sex and Gender Information Value Date Recorded Sex Assigned at Not on file Gender Identity Not on file Sexual Orientation Not on file
--- OUTSIDE RECORDS SUMMARY | 2024-08-25 15:47 | XMS_ITS ---
Author Organization [facility] Address [address] [facility] [address] [place] [address] Care Team Providers Care Repeat Photocomposing Machine Operator Name Role Phone Alvarez, Flaquito Unavailable [phone] REASON FOR VISIT pt walked in the office Medications Medication SIG (Take, Route, Fr equency, Duration) Notes Start Date End Date Status Qelbree 200 MG 1 capsule Orally Onc e a day for 30 days 07/07/2024 10/02/2024 Active Social History Sex Assigned At : Social History Observation Description Sex Assigned At Female Encounters Encounter Location Date Provider Diagnosis [facility] [address] [facility] [address] [place] [address] 08/03/2024 Flaquito Alvarez Attention-deficit hyperactivity disorder, combined [...] AM, [address], [place], [address], Progress Notes * LINDA DIASDOB:1949 (74 yo F)Acc No.[id number]:08/03/2024 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
--- OUTSIDE RECORDS SUMMARY | 2024-08-25 15:47 | XMS_ITS | Clinical Summary ---
Author Organization [address] Address [address] [place] [address] NELLIE Walker [address] Care Team Providers Care Global Implementation Manager Name Role Phone Jose Martin Dinero MD Primary Care Provider [phone] Amee Milan PA Unavailable Allergies Active Allergy [...] on file Legal Sex Female 7:38 PM POLICY SPECIALIST Gender Identity Not on file Sexual Orientation Not on file Obstetrics History Last Filed Vital Signs Vital Sign Reading Time Taken Comments Blood Pressure 155/87 06/25/2023 10:14 PM POLICY SPECIALIST Pulse 54 06/25/2023 10:14 PM POLICY SPECIALIST Temperature 36.6 C (97.9 F) 06/25/2023 10:14 PM POLICY SPECIALIST Respiratory Rate 14 06/25/2023 10:14 PM POLICY SPECIALIST Oxygen Saturation 97% 06/25/2023 10:14 PM POLICY SPECIALIST Inhaled Oxygen Concentration - - Weight 60.8 kg (134 lb) 06/25/2023 5:44 PM POLICY SPECIALIST Height 160 cm (5' 3 ) 06/25/2023 5:44 PM POLICY SPECIALIST Body Mass Index 23.74 06/25/2023 5:44 PM POLICY SPECIALIST Plan of Treatment Health Maintenance Due Date [...] 05/01/2023 Fall Risk Assessment 05/01/2024 05/01/2023 [facility] MDCR HMO REF MEDICARE SOLUTIONS MEDICARE SOLUTIONS Advance Directives For more information, please contact: [phone] * Full Code (Latest Code Status on File) Date Activated Date Inactivated Comments 04/27/2023 10:01 PM 05/01/2023 8:51 PM Care Teams Global Implementation Manager Relationship Specialty Start Date End Date Jose Martin Dinero MD PCP - General Internal Medicine 06/25/23 Amee Milan PA [address] [place] [address] Emergency Medicine 06/25/23
--- OUTSIDE RECORDS SUMMARY | 2024-08-25 15:47 | XMS_ITS ---
Author Organization [facility] Address [address] [place] [address] Care Team Providers Care Glove Parts Cutter Name Role Phone Flaquito Alvarez Unavailable [phone] Allergies No Known Allergies REASON FOR VISIT [...] 30 days Active Magnesium *Pick strength-form from [employer] for eRX* 11/05/2023 Active CALCIUM CITRATE MALATE 250 MG-VITAMIN D3 2.5 MCG (100 UNIT) TABLET *Reorder from [employer] for eRx and Interaction Alerts* 11/05/2023 Active [...] Problem Attention deficit hyperactivity disorder, combined type (49378355) Attention-deficit hyperactivity disorder, combined type (F90.2) Active confirmed Vital Signs Blood pressure systolic 140 mm Hg 08/07/19 25 Blood pressure diastolic 66 mm Hg 025 Heart Rate 74 /min 08/07/2024 Height 63.00 in 08/07/2024 Weight 153 lbs 08/07/2024 BMI 27.1 kg/m2 08/07/2024 Height-cm 160.02 cm 08/07/2024 Weight-kg 69.4 kg 08/07/2024 Encounters Encounter Location Date Provider Diagnosis [facility] [address] [place] [address] 08/07/2024 Flaquito Alvarez Bipolar disorder, current episode mixed, moderate F31.62 ; Generalized anxiety disorder F41.1 ; Other fdc (current) drug therapy Z79.899 and Attention-deficit hyperactivity disorder, combined type F90.2 Assessments Encounter Date Diagnosis (ICD Code) Assessment Notes Treatment Notes Treatment Clinical Notes Section Notes 08/07/2024 Bipolar disorder, current episode mixed, moderate (ICD-10 - F31.62) 08/07/2024 Generalized anxiety disorder (ICD-10 - F41.1) 08/07/2024 Other fdc (current) drug therapy (ICD-10 - Z79.899) 08/07/2024 [...] adhd Provider Name:Flaquito romero, 09/04/2024 11:30:00 AM, [address], [address], [place], [address], Progress Notes * LINDA DIASDOB:1949 (74 yo F)Acc No.[id number]:08/07/2024 Patient: LINDA FREED Provider: FALLON GRIFFITHS :1950 A ge:74 Y S ex:Female Date:08/07/2024 Address:[address] [place], [place] [id number] Subjective: * Chief Complaints: * 1 . [...] TABLET , Notes to Pharmacist: *Reorder from [employer] for eRx and Interaction Alerts*, Taking Amphetamine-Dextroamphetamine 20 MG Tablet Oral , Taking Magnesium , Notes to Pharmacist: *Pick strength-form from [employer] for eRX*, Taking Vitamin B-6 100 MG [...] disorder - F41.1 3 . O ther fdc (current) drug therapy - Z79.899 4 . [...] NORMAL BP READING DOC F/U NOT RQR, 07970 BEHAV ASSMT W/SCORE & DOCD/STAND INSTRUMENT, G8752 MOST RECENT SYSTOLIC BP < 140MM HG, G8754 MOST RECENT DIASTOLIC BP < 90MM HG * Follow Up: 4 Weeks (Reason: f/u bipolar d/o, adhd) * Billing Information: * Visit Code: 91776 OFFICE OUTPATIENT VISIT 25 MINUTES DETAILED HISTORY AND EXAM/MODERATE MEDICAL DECISION MAKING. * Procedure Codes: G8783 NORMAL BP READING DOC F/U NOT RQR. 33453 BEHAV ASSMT W/SCORE & DOCD/STAND INSTRUMENT. G8752 MOST RECENT SYSTOLIC BP < 140MM HG. G8754 MOST RECENT DIASTOLIC BP < 90MM HG. * Electronic signature of FALLON Clements on 08/25/2024 at 03:46 PM ENGINEERING INTERN Sign off status: Pending * Provider: FALLON GRIFFITHS Date: 0 08/07/2024 Generated for Medina li/David/Joe on: 0 08/25/2024 03:46 PM ENGINEERING INTERN History and Physical Notes * HPI (History of Present Illness) Category Sub-Category Detail Notes Category Not es History of Presenting Problem Anxiety Onset: year s ago Depression bipolar d/o, recent dony, Onset: years ago , bipolar d/o, recent dony, Onset: years ago Psychotherapy not seeing a university counselor or Depression screening PHQ-9 Little inte rest [...] Screening Findings: P ositve Follow-Up for Depression: [facility] treatment assessment, Patient follow-up to return [...] days Feeling afraid as if something awful eyad ht happen: Several days Total NISHANT-7 Score: [...]
--- OUTSIDE RECORDS SUMMARY | 2024-08-25 15:47 | XMS_ITS ---
Author Organization [facility] Address [address] [place] [address] Care Team Providers Care Dip Tube Assembler Machine Name Role Phone Flaquito Alvarez Unavailable [phone] Allergies No Known Allergies Results Component Value Reference Range Notes UDT Reviewed date:07/08/2024 11:15:18 AM Interpretation: Performing Lab: Notes/Report: THC N 0 - 50 ng/ml Cocaine N 0 - 300 ng/ml Amphetamine POS 0 - 1000 ng/ml Buprenorphine (BUP) N 0 - 10 ng/ml Secobarbital (Bar) N 0 - 300 ng/ml Oxazepam (BZO) N 0 - 300 ng/ml 5-odfuibzefg-3,4-yaxithcv-3,3-diphenylpyrrolidine (TORIBIO P) N 0 - 300 ng/ml Methamphetamine (MET) N 0 - 1000 ng/ml Methylenedioxymethamphetamine (MDMA) N 0 - 500 ng/ml Morphine (MOP 300/YMZ9508) N 0 - 300 ng/ml Methadone (MTD) [...] End Date Status Magnesium *Pick strength-form from [facility] for eRX* 11/05/2023 Active Amphetamine-Dextroampheta mine [...] 2.5 MCG (100 UNIT) TABLET *Reorder from [facility] for eRx and Interaction Alerts* 11/05/2023 Active [...] Notes Problem Mixed bipolar affective disorder, moderate ([id number]) Bipolar disorder, current episode mixed, moderate (F31.62) Active confirmed Vital Signs Blood pressure systolic 128 mm Hg 07/07/19 25 Blood pressure diastolic 80 mm Hg 025 Heart Rate 59 /min 07/07/2024 Height 63.00 in 07/07/2024 Weight 151.8 lbs 07/07/2024 BMI 26.89 kg/m2 07/07/2024 Height-cm 160.02 cm 07/07/2024 Weight-kg 68.86 kg 07/07/2024 Encounters Encounter Location Date Provider Diagnosis [address] [address] 07/07/2024 Flaquitomona Dislaoza Bipolar disorder, current episode mixed, moderate F31.62 ; Generalized anxiety disorder F41.1 ; Other emt intermediate (current) drug therapy Z79.899 and Attention-deficit hyperactivity [...] Patient was previously seeing a provider at [facility]. Plan: - Obtain records from the previous provider. - Schedule a follow-up appointment in one month to assess the effectiveness of the new medication regimen and address any concerns. 7. Pharmacy: - Patient uses [facility] in [place]. Plan: - Send prescriptions for Qelbree, quetiapine, [...] Patient was previously seeing a provider at [facility]. Plan: - Obtain records from the previous provider. - Schedule a follow-up appointment in one month to assess the effectiveness of the new medication regimen and address any concerns. 7. Pharmacy: - Patient uses [facility] in [place]. Plan: - Send prescriptions for Qelbree, quetiapine, and Paxil to the patient's preferred pharmacy. 07/07/2024 Other snf (current) drug therapy (ICD-10 - Z79.899) 1. [...] Patient was previously seeing a provider at [facility]. Plan: - Obtain records from the previous provider. - Schedule a follow-up appointment in one month to assess the effectiveness of the new medication regimen and address any concerns. 7. Pharmacy: - Patient uses [facility] in [place]. Plan: - Send prescriptions for Qelbree, quetiapine, [...] Patient was previously seeing a provider at [facility]. Plan: - Obtain records from the previous provider. - Schedule a follow-up appointment in one month to assess the effectiveness of the new medication regimen and address any concerns. 7. Pharmacy: - Patient uses [facility] in [place]. Plan: - Send prescriptions for Qelbree, quetiapine, [...] adhd Provider Name:Flaquito romero, 09/04/2024 11:30:00 AM, [facility] [facility] [address], [facility] [address] [place], [address], Progress Notes * JOSE FRANCISCOKARRIELINDADOB:1949 (74 yo F)Acc No.[id number]:07/07/2024 Patient: Nj CONTENT ANALYSTLINDA Provider: FALLON GRIFFITHS :1950 A ge:74 Y S ex:Female Date:07/07/2024 Address:[address] [place], [place] [phone] Subjective: * Chief Complaints: * F ollow [...] She has been taking a supplement called [employer] Neuro-something, which she purchased online as a potential replacement for Adderall. She is unsure of its contents and effectiveness. The patient has been out of Adderall since the beginning of May and feels that she does not get things done without it. She reports that amphetamine showed up in her urine drug screen, which she attributes to the [employer] Neuro-something supplement and some old pills she [...] tool used for adult depression screening: [facility]). H istory of Presenting [...] TABLET , Notes to Pharmacist: *Reorder from [facility] for eRx and Interaction Alerts*Amphetamine-Dextroamphetamine 20 MG Tablet Oral Magnesium , Notes to Pharmacist: *[facility]*Vitamin B-6 100 MG Tablet [...] TABLET , Notes to Pharmacist: *Reorder from [facility] for eRx and Interaction Alerts*Taking Amphetamine-Dextroamphetamine 20 MG Tablet Oral Taking Magnesium , Notes to Pharmacist: *[facility] for [facility]*Taking Vitamin B-6 100 MG [...] 4 MG Tablet Disintegrating Oral Polymyxin B-Trimethoprim 47868-2.1 UNIT/ML Solution Ophthalmic prednisoLONE Acetate 1 % [...] MG Tablet Disintegrating Oral Discontinued Polymyxin B-Trimethoprim 42353-0.1 UNIT/ML Solution Ophthalmic Discontinued prednisoLONE Acetate 1 [...] disorder - F41.1 3 . O ther emt intermediate (current) drug therapy - Z79.899 4 . [...] Patient was previously seeing a provider at [facility]. Plan: - Obtain records from the previous provider. - Schedule a follow-up appointment in one month to assess the effectiveness of the new medication regimen and address any concerns. 7. Pharmacy: - Patient uses [facility] in [place]. Plan: - Send prescriptions for Qelbree, quetiapine, [...] N 0 - 300 ng/ml * 2 -ethylidene-1,9-pcjlavhn-4,3-diphenylpyrrolidine (EDDP) N 0 - 300 ng/ml * M ethamphetamine (MET) N 0 - 1000 ng/ml * M ethylenedioxymethamphetamine (MDMA) N 0 - 500 ng/ml * M orphine (MOP 300/UBH9593) N 0 - 300 ng/ml * M ethadone (MTD) N 0 - 300 ng/ml * P hencyclidine (PCP) N 0 - 25 ng/ml * P ropoxyphene (PPX) N 0 - 300 ng/ml * N ortriptyline (TCA) N 0 - 1000 ng/ml * O xycodone N 0 - 300 ng/ml * Procedure Codes: 9 6127 BEHAV ASSMT W/SCORE & DOCD/STAND [id number] DRUG TST PRSMV READ INSTRMNT ASSTD DIR OPT OBS * Follow Up: 4 Weeks (Reason: f/u bipolar d/o, adhd) * Billing Information: * Visit Code: 02541 OFFICE OUTPATIENT VISIT 25 MINUTES DETAILED HISTORY AND EXAM/MODERATE MEDICAL DECISION MAKING. * Procedure Codes: 48769 BEHAV ASSMT W/SCORE & DOCD/STAND INSTRUMENT. 89907 DRUG TST PRSMV READ INSTRMNT ASSTD DIR OPT OBS. * AND BEVERAGE DIRECTOR Sign off status: Completed true * Provider: FALLON GRIFFITHS Date: 0 07/07/2024 Generated for Medina li/David/Silverransmramirez on: 0 08/25/2024 03:47 PM FOOD AND BEVERAGE DIRECTOR History and Physical Notes * HPI (History [...] Screening Findings: P ositve Follow-Up for Depression: [facility] treatment assessment, Patient follow-up to return when [...]
--- OUTSIDE RECORDS SUMMARY | 2024-08-25 15:47 | XMS_ITS | Clinical Summary ---
Author Organization [facility] Address [facility] [place] [address] Care Team Providers Care Fire Investigator Name Role Phone Amee Milan Primary Care Provider Allergies Active Allergy Reactions Criticality Noted Date [...] this topic Insurance AETNA AETNA Care Teams Fire Investigator Relationship Specialty Start Date End Date Amee Milan PA [address] [place] [address] PCP - General PHYSICIAN BUSINESS DEVELOPMENT OFFICER 03/22/22
--- OUTSIDE RECORDS SUMMARY | 2024-08-25 15:47 | XMS_ITS | Referral Summary ---
Author Organization [facility] Address [address] [place] [address] Care Team Providers Care Fitter Tacker Name Role Phone Unavailable Primary Care Provider Unavailabl e Source Comments [facility],non-owned Affiliates and Associated Physician Practices is amultiple site organization consisting of ambulatory clinics and hospital sitesin [place], [place] and [place]. This disclosure is being madepursuant to the Care Everywhere program and may not contain all information available regarding this patient. Last updated 18.[facility] [address] [facility] Social History Tobacco Use Types Packs/Day Years Used Date Smoking Tobacco: Never Assessed Sex and Gender Information Value Date Recorded Sex Assigned at Not on file Gender Identity Not on file Sexual Orientation Not on file Plan of Treatment Not on file
--- OUTSIDE RECORDS SUMMARY | 2024-08-25 15:47 | XMS_ITS | Clinical Summary ---
Author Organization [facility] Address [address] [place] [address] Care Team Providers Care Metal Loader Name Role Phone Unavailable Primary Care Provider Unavailabl e Source Comments [facility],non-owned Affiliates and Associated Physician Practices is amultiple site organization consisting of ambulatory clinics and hospital sitesin [place], [place], [place] and [place]. This disclosure is being madepursuant to the Care Everywhere program and may not contain all information available regarding this patient. Last updated 18.[facility] Social History Tobacco Use Types Packs/Day Years [...] patient's age to complete this topic LINDA SOIRA Personal/Family Spouse [address] [id number]
--- OUTSIDE RECORDS SUMMARY | 2024-08-25 15:47 | XMS_ITS ---
Author Organization Unknown Address [address] [place] [phone] Phone Care Team Providers Care Soup Person Name Role Phone BERNADETTE COLON Attending Unavailable ABELINO SNIDER PA-C Primary Unavailable Results BASIC METABOLIC PANEL - Tahmina ect Date/Time: 11/07/2023 15:27 [facility] ID: [id number] [place], [place], [id number] LOINC: 46732-5 Test Value Unit Reference Range Code Code System Flag FASTING UNKNOWN BUN 35 mg/dL L=7 H=20 3094-0 LOINC H CREATININE 1.00 mg/dL L=0.52 H=1.04 2160-0 LOINC GLUCOSE 119 mg/dL L=74 H=106 2345-7 LOINC H CALCIUM 10.1 mg/dL L=8.3 H=10.5 64438-3 LOINC SODIUM 137 mmol/L L=132 H=144 2951-2 LOINC POTASSIUM 4.1 mmol/L L=3.5 H=5.1 2823-3 LOINC CHLORIDE 101 mmol/L L=98 H=107 2075-0 LOINC CO2 27.0 mmol/L L=22.0 H=30.0 2028-9 LOINC ANION GAP 13 L=10 H=20 24990-2 LOINC BUN/CREAT 35.0 3097-3 LOINC AGE 73 33227-6 LOINC eGFR NON-AFR 58 ml/min eGFR AFR AMER 70 ml/min MAGNESIUM - Collect Date/Rui e: 11/07/2023 15:27 [facility] ID: [id number] [address] [place] [address], [phone] LOINC: 29968-9 Test Value Unit Reference Range Code Code System Flag MAGNESIUM 1.9 mg/dL L=1.6 H=2.3 84798-5 LOINC OD [id number] YLATE-ETOH - Collect Date/Time: 11/07/2023 15:27 [facility] ID: [id number] [address] [place] [address], [phone] LOINC: Test Value Unit Reference Range Code Code System Flag ACETAMINOPHEN < 10 ug/dL L=0 H=10 3298-7 LOINC SALICYLATE < 1 mg/dL L=0 H=5 4024-6 LOINC ALCOHOL < 10.00 mg/dL L=0.00 H=50.00 5643-2 LOINC TSH - Collect Date/Time: 03/2024 15:27 [facility] ID: [id number] [address] [place] [address], [phone] LOINC: 71330-0 Test Value Unit Reference Range Code Code System Flag TSH. 44.500 uIU/L L=0.470 H=4.680 14183-3 LOINC H LIVER PROFILE - Collect Date /Time: 11/07/2023 15:27 [facility] ID: [id number] [address] [place] [address], [phone] LOINC: 14809-1 Test Value Unit Reference Range Code Code System Flag ALT 25 U/L L=9 H=72 1742-6 LOINC AST 40 U/L L=15 H=46 1920-8 LOINC ALKALINE PHOS 92 U/L L=38 H=126 6768-6 LOINC TOTAL PROTEIN 9.1 g/L L=6.3 H=8.2 2885-2 LOINC H TOTAL BILI 0.4 mg/dL L=0.2 H=1.3 1975-2 LOINC DIRECT BILI 0.0 mg/dL L=0.0 H=0.3 1967-7 LOINC INDIRECT BILI 0.20 mg/dL L=0.00 H=1.10 1971-1 LOINC ALBUMIN 4.7 G/dL L=3.5 H=5.0 1751-7 LOINC CBC W/ DIFF - Collect Date/T mona: 11/07/2023 15:27 [facility] ID: [id number] [address] [place], [place], [phone] LOINC: 78853-9 Test Value Unit Reference Range Code Code System Flag WBC 5.3 10^3uL L=4.8 H=10.8 RBC 4.11 10^6uL L=4.20 H=5.40 L HEMOGLOBIN 13.5 g/dL L=12.0 H=16.0 718-7 LOINC HEMATOCRIT 40.1 VOL% L=37.0 H=47.0 4544-3 LOINC MCV 97.6 fL L=81.0 H=99.0 MCH 32.8 pg L=27.0 H=32.0 H MCHC 33.7 g/dL L=32.0 H=36.0 PLATELETS 275 10^3uL L=100 H=400 48938-3 LOINC RDW 11.4 % L=11.7 H=15.5 L %GRAN 44.4 % L=40.0 H=70.0 44618-8 LOINC %LYMPH 44.4 % L=20.0 H=45.0 736-9 LOINC %MONO 7.7 % L=2.0 H=10.0 03294-2 LOINC %EOS 2.6 % L=0.0 H=6.0 713-8 LOINC %BASO 0.7 % L=0.0 H=3.0 706-2 LOINC #NEUT 2.4 10^3uL L=1.9 H=7.6 98441-5 LOINC #LYMPH 2.4 10^3uL L=0.9 H=4.9 63618-0 LOINC #MONO 0.4 10^3uL L=0.1 H=0.9 38637-8 LOINC #EOS 0.1 10^3uL L=0.0 H=0.6 712-0 LOINC #BASO 0.04 10^3uL L=0.00 H=0.10 48057-2 LOINC #IM GRANS 0.0 10^3uL L=0.0 H=7.0 87776-0 LOINC %IM GRANS 0.2 % L=0.0 H=5.0 85134-5 LOINC %NRB 0.0 L=0.0 H=0.2 57179-6 LOINC #NRB 0.000 L=0.000 H=0.012 00152-2 LOINC MANUAL DIFF NOT INDICATED RBC MORPH NOT INDICATED SARS COV2 PCR - Collect Date /Time: 11/07/2023 15:25 [facility] ID: [id number] [address] [place] [address], [phone] LOINC: 99181-5 Test Value Unit Reference Range Code Code System Flag SARS COV2 PCR NEGATIVE 55803-8 LOINC SENT TO [facility] RN? NO URINE DRUG SCREEN 12 PANEL R APID - Collect Date/Time: 11/07/2023 14:55 [facility] ID: [id number] [address] [place] [address], [phone] LOINC: Test Value Unit Reference Range Code Code System Flag THC NEGATIVE PCP NEGATIVE COCAINE NEGATIVE 86737-7 LOINC METHAMPHETAMINES NEGATIVE OPIATES NEGATIVE AMPHETAMINES POSITIVE 44562-0 LOINC A BENZO NEGATIVE 56776-9 LOINC TCA POSITIVE A METHADONE NEGATIVE BARBITUATES NEGATIVE OXYCODONE NEGATIVE URINALYSIS w/Microscopy/C&S if indicated - Collect Date/Time: 11/07/2023 14:55 [facility] ID: [id number] [address] [place] [address], [phone] LOINC: 10164-5 Test Value Unit Reference Range Code Code System Flag UR SOURCE CLEAN CATCH 85091-0 LOINC COLOR YELLOW YELLOW 5778-6 LOINC CLARITY CLEAR CLEAR 15854-4 LOINC SPEC GRAVITY 1.010 1.000-1.030 5811-5 LOINC PH 5.5 5.0 - 6.5 5803-2 LOINC LEUK EST NEGATIVE NEGATIVE 5799-2 LOINC NITRATE NEGATIVE NEGATIVE PROTEIN NEGATIVE NEGATIVE 5804-0 LOINC GLUCOSE NEGATIVE NEGATIVE 29444-0 LOINC KETONES NEGATIVE NEGATIVE 68215-5 LOINC UROBILINOGEN 0.2 NEGATIVE 5818-0 LOINC BILIRUBIN NEGATIVE NEGATIVE 91377-5 LOINC BLOOD NEGATIVE NEGATIVE 22667-5 LOINC WBC 0-2 0 - 2 58123-4 LOINC RBC 0-2 0 - 2 56922-8 LOINC EPITHELIAL RARE RARE-FEW 13130-7 LOINC BACTERIA NONE SEEN NONE SEEN 30017-9 LOINC MUCUS NONE SEEN NONE SEEN 8247-9 LOINC YEAST NOT PRESENT NOT PRESENT 04945-4 LOINC CASTS NONE SEEN 14380-6 LOINC CRYSTALS NONE SEEN 35592-4 LOINC CULTURE? NO 8251-1 LOINC DIAGNOSIS Social History Type Status Start Date End Date Code Code Syst em Smoking History Never smoker (Never Smoked) 862636314 SNOMED CT Sex Female Hospital Discharge Instructions [...]
--- OUTSIDE RECORDS SUMMARY | 2024-08-25 15:47 | XMS_ITS | Referral Summary ---
Author Organization [address] Address [address] [place] [address] NELLIE Walker [address] Care Team Providers Care Production Lapping Machine Operator Name Role Phone Jose Martin Dinero MD Primary Care Provider [phone] Amee Milan PA Unavailable Allergies Active Allergy [...] on file Legal Sex Female 7:38 PM [employer] Gender Identity Not on file Sexual Orientation Not on file Last Filed Vital Signs Vital Sign Reading Time Taken Comments Blood Pressure 155/87 06/25/2023 10:14 PM SAND M[employer]ER Pulse 54 06/25/2023 10:14 PM [employer] M[employer]ER Temperature 36.6 C (97.9 F) 06/25/2023 10:14 PM SAND MILLER Respiratory Rate 14 06/25/2023 10:14 PM SAND MILLER Oxygen Saturation 97% 06/25/2023 10:14 PM SAND MILLER Inhaled Oxygen Concentration - - Weight 60.8 kg (134 lb) 06/25/2023 5:44 PM SAND MILLER Height 160 cm (5' 3 ) 06/25/2023 5:44 PM SAND MILLER Body Mass Index 23.74 06/25/2023 5:44 PM SAND MILLER Plan of Treatment Not on file Insurance [facility] HMO REF MEDICARE SOLUTIONS [facility] HMO REF MEDICARE SOLUTIONS MEDICARE SOLUTIONS Advance Directives For more information, please contact: [phone] * Full Code (Latest Code Status on File) Date Activated Date Inactivated Comments 04/27/2023 10:01 PM 05/01/2023 8:51 PM Care Teams Production Lapping Machine Operator Relationship Specialty Start Date End Date Jose Martin Dinero MD PCP - General Internal Medicine 06/25/23 Amee Milan PA [address] [place] [id number] Emergency Medicine 06/25/23
--- OUTSIDE RECORDS SUMMARY | 2024-08-25 17:08 | XMS_ITS ---
Author Organization Unknown Address [address] [place] [phone] Phone Care Team Providers Care Engine Testing Supervisor Name Role Phone BERNADETTE COLON Attending Unavailable ABELINO SNIDER PA-C Primary Unavailable Results BASIC METABOLIC PANEL - Tahmina ect Date/Time: 11/07/2023 15:27 [facility] ID: [id number] [place], [place], [phone] LOINC: 93970-3 Test Value Unit Reference Range Code Code System Flag FASTING UNKNOWN BUN 35 mg/dL L=7 H=20 3094-0 LOINC H CREATININE 1.00 mg/dL L=0.52 H=1.04 2160-0 LOINC GLUCOSE 119 mg/dL L=74 H=106 2345-7 LOINC H CALCIUM 10.1 mg/dL L=8.3 H=10.5 56531-5 LOINC SODIUM 137 mmol/L L=132 H=144 2951-2 LOINC POTASSIUM 4.1 mmol/L L=3.5 H=5.1 2823-3 LOINC CHLORIDE 101 mmol/L L=98 H=107 2075-0 LOINC CO2 27.0 mmol/L L=22.0 H=30.0 2028-9 LOINC ANION GAP 13 L=10 H=20 25957-3 LOINC BUN/CREAT 35.0 3097-3 LOINC AGE 73 22223-7 LOINC eGFR NON-AFR 58 ml/min eGFR AFR AMER 70 ml/min MAGNESIUM - Collect Date/Rui e: 11/07/2023 15:27 [facility] ID: [id number] [place] [address], [phone] LOINC: 93414-0 Test Value Unit Reference Range Code Code System Flag MAGNESIUM 1.9 mg/dL L=1.6 H=2.3 04565-9 LOINC OD [id number]-ETOH - Collect Date/Time: 11/07/2023 15:27 [facility] ID: [id number] [address] [place] [address], [phone] LOINC: Test Value Unit Reference Range Code Code System Flag ACETAMINOPHEN < 10 ug/dL L=0 H=10 3298-7 LOINC SALICYLATE < 1 mg/dL L=0 H=5 4024-6 LOINC ALCOHOL < 10.00 mg/dL L=0.00 H=50.00 5643-2 LOINC TSH - Collect Date/Time: 03/2024 15:27 [facility] ID: [id number] [address] [place] [address], [phone] LOINC: 20137-7 Test Value Unit Reference Range Code Code System Flag TSH. 44.500 uIU/L L=0.470 H=4.680 25259-2 LOINC H LIVER PROFILE - Collect Date /Time: 11/07/2023 15:27 [facility] ID: [id number] [address] [place] [address], [phone] LOINC: 29384-3 Test Value Unit Reference Range Code Code [...] DIFF - Collect Date/T mona: 11/07/2023 15:27 [facility] ID: [id number] [address] [place], [place], [phone] LOINC: 12172-7 Test Value Unit Reference Range Code Code System Flag WBC 5.3 10^3uL L=4.8 H=10.8 RBC 4.11 10^6uL L=4.20 H=5.40 L HEMOGLOBIN 13.5 g/dL L=12.0 H=16.0 718-7 LOINC HEMATOCRIT 40.1 VOL% L=37.0 H=47.0 4544-3 LOINC MCV 97.6 fL L=81.0 H=99.0 MCH 32.8 pg L=27.0 H=32.0 H MCHC 33.7 g/dL L=32.0 H=36.0 PLATELETS 275 10^3uL L=100 H=400 48729-8 LOINC RDW 11.4 % L=11.7 H=15.5 L %GRAN 44.4 % L=40.0 H=70.0 17060-9 LOINC %LYMPH 44.4 % L=20.0 H=45.0 736-9 LOINC %MONO 7.7 % L=2.0 H=10.0 89778-9 LOINC %EOS 2.6 % L=0.0 H=6.0 713-8 LOINC %BASO 0.7 % L=0.0 H=3.0 706-2 LOINC #NEUT 2.4 10^3uL L=1.9 H=7.6 98887-7 LOINC #LYMPH 2.4 10^3uL L=0.9 H=4.9 38193-6 LOINC #MONO 0.4 10^3uL L=0.1 H=0.9 13388-8 LOINC #EOS 0.1 10^3uL L=0.0 H=0.6 712-0 LOINC #BASO 0.04 10^3uL L=0.00 H=0.10 46155-5 LOINC #IM GRANS 0.0 10^3uL L=0.0 H=7.0 81079-2 LOINC %IM GRANS 0.2 % L=0.0 H=5.0 94409-6 LOINC %NRB 0.0 L=0.0 H=0.2 35972-2 LOINC #NRB 0.000 L=0.000 H=0.012 39964-5 LOINC MANUAL DIFF NOT INDICATED RBC MORPH NOT INDICATED SARS COV2 PCR - Collect Date /Time: 11/07/2023 15:25 [facility] ID: [id number] [place] [address], [phone] LOINC: 80612-5 Test Value Unit Reference Range Code Code System Flag SARS COV2 PCR NEGATIVE 10322-8 LOINC SENT TO [facility] RN? NO URINE DRUG SCREEN 12 PANEL R APID - Collect Date/Time: 11/07/2023 14:55 [facility] ID: [id number] [place] [address], [phone] LOINC: Test Value Unit Reference Range Code Code System Flag THC NEGATIVE PCP NEGATIVE COCAINE NEGATIVE 38612-1 LOINC METHAMPHETAMINES NEGATIVE OPIATES NEGATIVE AMPHETAMINES POSITIVE 86850-8 LOINC A BENZO NEGATIVE 12904-7 LOINC TCA POSITIVE A METHADONE NEGATIVE BARBITUATES NEGATIVE OXYCODONE NEGATIVE URINALYSIS w/Microscopy/C&S if indicated - Collect Date/Time: 11/07/2023 14:55 [facility] ID: [id number] [place], [place], [id number] LOINC: 83479-1 Test Value Unit Reference Range Code Code System Flag UR SOURCE CLEAN CATCH 19344-6 LOINC COLOR YELLOW YELLOW 5778-6 LOINC CLARITY CLEAR CLEAR 92562-8 LOINC SPEC GRAVITY 1.010 1.000-1.030 5811-5 LOINC PH 5.5 5.0 - 6.5 5803-2 LOINC LEUK EST NEGATIVE NEGATIVE 5799-2 LOINC NITRATE NEGATIVE NEGATIVE PROTEIN NEGATIVE NEGATIVE 5804-0 LOINC GLUCOSE NEGATIVE NEGATIVE 78019-5 LOINC KETONES NEGATIVE NEGATIVE 44419-0 LOINC UROBILINOGEN 0.2 NEGATIVE 5818-0 LOINC BILIRUBIN NEGATIVE NEGATIVE 74259-3 LOINC BLOOD NEGATIVE NEGATIVE 92486-5 LOINC WBC 0-2 0 - 2 44895-5 LOINC RBC 0-2 0 - 2 93190-2 LOINC EPITHELIAL RARE RARE-FEW 24868-8 LOINC BACTERIA NONE SEEN NONE SEEN 48409-6 LOINC MUCUS NONE SEEN NONE SEEN 8247-9 LOINC YEAST NOT PRESENT NOT PRESENT 86535-0 LOINC CASTS NONE SEEN 22610-3 LOINC CRYSTALS NONE SEEN 25004-2 LOINC CULTURE? NO 8251-1 LOINC DIAGNOSIS Social History Type Status Start Date End Date Code Code Syst em Smoking History Never smoker (Never Smoked) [id number] SNOMED CT Sex Female Hospital Discharge Instructions [...]
--- OUTSIDE RECORDS SUMMARY | 2024-08-25 17:09 | XMS_ITS | Clinical Summary ---
Author Organization [facility] Address [facility] [place] [address] Care Team Providers Care Mandrel Press Hand Name Role Phone Amee Milan Primary Care Provider [phone] Allergies Active Allergy Reactions Criticality Noted Date [...] this topic Insurance AETNA AETNA Care Teams Mandrel Press Hand Relationship Specialty Start Date End Date Amee Milan PA [address] [place] [address] PCP - General PHYSICIAN WATER SKI ASSEMBLER 03/22/22
--- OUTSIDE RECORDS SUMMARY | 2024-08-25 17:09 | XMS_ITS | Patient Health Record ---
Author Organization [facility] [employer] Address [address] [place] [address] Care Team Providers Care Assistant Auto Center Manager Name Role Phone Flaquito Alvarez Unavailable [phone] Migration, Provider Unavailable Unavailable Allergies No Known [...] Oxazepam (BZO) N 0 - 300 ng/ml 7-rymuunmhej-3,7-jbuhgjzv-3, 3-diphenylpyrrolidine (EDDP) N 0 - 300 ng/ml Methamphetamine (MET) N 0 - 1000 ng/ml Methylenedioxymethamphetamine (MDMA) N 0 - 500 ng/ml Morphine (MOP 300/WLZ4102) N 0 - 300 ng/ml Methadone (MTD) [...] 30 days Active Magnesium *Pick strength-form from [employer] for eRX* 11/05/2023 Active Vitamin B-6 100 MG Oral 11/05/2023 Active CALCIUM CITRATE MALATE 250 MG-VITAMIN D3 2.5 MCG (100 UNIT) TABLET *Reorder from [employer] for eRx and Interaction Alerts* 11/05/2023 Active [...] Notes Problem Mixed bipolar affective disorder, moderate (215497775) Bipolar disorder, current episode mixed, moderate (F31.62) Active confirmed Problem Generalized anxiety disorder (61944925) Generalized anxiety disorder (F41.1) Active confirmed Problem Attention deficit hyperactivity disorder, combined type (80639593) Attention-deficit hyperactivity disorder, combined type (F90.2) Active confirmed Vital Signs Heart Rate 74 /min 08/07/2024 Height-cm 160.02 cm 08/07/2024 Blood pressure diastolic 66 mm Hg 08/07/2024 Weight-kg 69.4 kg 08/07/2024 Height 63.00 in 08/07/2024 Blood pressure systolic 140 mm Hg 08/07/2024 Weight 153 lbs 08/07/2024 BMI 27.1 kg/m2 08/07/2024 Encounters Encounter Location Date Provider Diagnosis [facility] [employer] [facility] [address] [place] [address] 08/07/2024 Flaquitomona Alvarez Bipolar disorder, current episode mixed, moderate F31.62 ; Generalized anxiety disorder F41.1 ; Other assisted (current) drug therapy Z79.899 and Attention-deficit hyperactivity disorder, combined type F90.2 [facility] [employer] [facility] [address] [place] [address] 09/18/2023 Provider Migration Attention-deficit hyperactivity disorder, predominantly inattentive type F90.0 [facility] [employer] [facility] [address] [place] [address] 10/15/2023 Flaquito Alvarez Bipolar disorder, current episode mixed, moderate F31.62 ; Attention-deficit hyperactivity disorder, predominantly inattentive type F90.0 ; Generalized anxiety disorder F41.1 and Other buttermaker helper (current) drug therapy Z79.899 [facility] [employer] [facility] [address] [place] [address] 10/18/2023 Provider Migration Generalized anxiety disorder F41.1 [employer] [facility] [address] [place] [address] 11/05/2023 Flaquito Alvarez Generalized anxiety disorder F41.1 ; Bipolar disorder, current episode mixed, moderate F31.62 ; Attention-deficit hyperactivity disorder, predominantly inattentive type F90.0 and Other buttermaker helper (current) drug therapy Z79.899 [facility] [employer] [facility] [address] [place] [address] 11/14/2023 Provider Migration Attention-deficit hyperactivity disorder, predominantly inattentive type F90.0 [facility], [facility] [address] [place] [address] 11/21/2023 Flaquito Alvarez [facility], [facility] [address] [place] [address] 12/05/2023 Flaquito Alvarez Bipolar disorder, current episode mixed, moderate F31.62 ; Generalized anxiety disorder F41.1 and Other assisted (current) drug therapy Z79.899 [facility], [facility] [address] [place] [address] 07/07/2024 Flaquito Alvarez Bipolar disorder, current episode mixed, moderate F31.62 ; Generalized anxiety disorder F41.1 ; Other assisted (current) drug therapy Z79.899 and Attention-deficit hyperactivity disorder, combined type F90.2 [facility], [facility] [address] [place] [address] 09/24/2023 Provider Migration [facility], [facility] [address] [place] [address] 10/17/2023 Provider [facility], [facility] [address] [place] [address] 10/21/2023 Provider Migration [facility], [facility] [address] [place] [address] 10/22/2023 Provider [facility], [facility] [address] [place] [address] 10/25/2023 Provider [facility], [facility] [address] [place] [address] 10/29/2023 Provider Migration [facility], [facility] [address] [place] [address] 11/01/2023 Provider [facility], [facility] [address] [place] [address] 11/14/2023 Provider [facility], [facility] [address] [place] [address] 11/16/2023 Provider [facility], [facility] [address] [place] [address] 11/17/2023 Provider [facility], [facility] [address] [place] [address] 12/06/2023 [facility] [address] [place] [address] 12/06/2023 Flaquito Alvarez [facility], [facility] [address] [place] [address] 12/20/2023 Flaquito Alvarez [facility], [facility] [address] [place] [address] 12/30/2023 Flaquito Alvarez [facility], [facility] [address] [place] [address] 01/09/2024 Flaquito Alvarez [facility], [facility] [address] [place] [address] 02/04/2024 Flaquito Alvarez Generalized anxiety disorder F41.1 [facility] [address] [place] [address] 08/03/2024 Flaquito Alvarez Attention-deficit hyperactivity disorder, combined [...] Patient was previously seeing a provider at [email or web address]. Plan: - Obtain records from the previous provider. - Schedule a follow-up appointment in one month to assess the effectiveness of the new medication regimen and address any concerns. 7. Pharmacy: - Patient uses [facility] in [place]. Plan: - Send prescriptions for Qelbree, quetiapine, [...] Patient was previously seeing a provider [facility]. Plan: - Obtain records from the previous provider. - Schedule a follow-up appointment in one month to assess the effectiveness of the new medication regimen and address any concerns. 7. Pharmacy: - Patient uses [facility] in [place]. Plan: - Send prescriptions for Qelbree, quetiapine, [...] inattentive type (ICD-10 - F90.0) 10/15/2023 Other assisted (current) drug therapy (ICD-10 - Z79.899) 10/18/2023 Generalized anxiety disorder (ICD-10 - F41.1) 11/05/2023 Bipolar disorder, current episode mixed, moderate (ICD-10 - F31.62) 11/05/2023 Generalized anxiety disorder (ICD-10 - F41.1) 11/05/2023 Attention-defici t hyperactivity disorder, predominantly inattentive type (ICD-10 - F90.0) 11/05/2023 Other buttermaker helper (current) drug therapy (ICD-10 - Z79.899) 11/14/2023 Attention-defici t hyperactivity disorder, predominantly inattentive type (ICD-10 - F90.0) 12/05/2023 Bipolar disorder, current episode mixed, moderate (ICD-10 - F31.62) 12/05/2023 Generalized anxiety disorder (ICD-10 - F41.1) 12/05/2023 Other assisted (current) drug therapy (ICD-10 - Z79.899) 08/07/2024 Generalized anxiety disorder (ICD-10 - F41.1) 07/07/2024 Other buttermaker helper (current) drug therapy (ICD-10 - Z79.899) 1. [...] Patient was previously seeing a provider at [email or web address]. Plan: - Obtain records from the previous provider. - Schedule a follow-up appointment in one month to assess the effectiveness of the new medication regimen and address any concerns. 7. Pharmacy: - Patient uses [facility] in [place]. Plan: - Send prescriptions for Qelbree, quetiapine, and Paxil to the patient's preferred pharmacy. 08/07/2024 Other buttermaker helper (current) drug therapy (ICD-10 - Z79.899) 07/07/2024 [...] Patient was previously seeing a provider at [email or web address]. Plan: - Obtain records from the previous provider. - Schedule a follow-up appointment in one month to assess the effectiveness of the new medication regimen and address any concerns. 7. Pharmacy: - Patient uses [facility] in [place]. Plan: - Send prescriptions for Qelbree, quetiapine, and Paxil to the patient's preferred pharmacy. 08/07/2024 Attention-defici t hyperactivity disorder, combined type (ICD-10 - F90.2) do not recommend stimulants Plan Of Treatment Next Appt Details Provider Name:Flaquito romero, 09/04/2024 11:30:00 AM, [address], [facility] [address], [place], [address], Insurance Providers Payer Name Payer Address Payer Phone Subscriber Number Group Number Insured Name Patient Relationship to Insured Coverage Start Date Coverage End Date [employer] Medicare Replacement/ Advantage - Ppo [address] [place] [address] [id number] LINDA DIAS Self - patient is the insured [facility] [address] [place] [address] [id number] LINDA DIAS Self - patient is the insured Medical (General) History Medical History History ICD Code Problems: Attention deficit hyperactivit y disorder Attention deficit hyperactivity disorder , predominantly inattentive type Bipolar disorder Generalized anxiety disorder Long-term drug therapy , Surgical History Surgery Date(Month/Year) Any surgical history Gastric bypass for obesity (54963) per h er memory, not exact date 01/30/1988
--- OUTSIDE RECORDS SUMMARY | 2024-08-25 17:09 | XMS_ITS | Clinical Summary ---
Author Organization [facility] Address [address] [place] [address] Care Team Providers Care Ems Driver Name Role Phone Unavailable Primary Care Provider Unavailabl e Source Comments [facility],non-owned Affiliates and Associated Physician Practices is amultiple site organization consisting of ambulatory clinics and hospital sitesin [place], [place], [place] and [place]. This disclosure is being madepursuant to the Care Everywhere program and may not contain all information available regarding this patient. Last updated 18.[facility] Social History Tobacco Use Types Packs/Day Years [...] SORIA Personal/Family Spouse [address] [id number]
--- OUTSIDE RECORDS SUMMARY | 2024-08-25 17:09 | XMS_ITS | Referral Summary ---
Author Organization [address] Address [address] [place] [address] [place] [address] Care Team Providers Care Roll Off Driver Name Role Phone Jose Martin Dinero MD Primary Care Provider [phone] Amee Milan PA Unavailable Allergies Active Allergy [...] on file Legal Sex Female 7:38 PM TWISTING FRAME OPERATOR Gender Identity Not on file Sexual Orientation Not on file Last Filed Vital Signs Vital Sign Reading Time Taken Comments Blood Pressure 155/87 06/25/2023 10:14 PM TWISTING FRAME OPERATOR Pulse 54 06/25/2023 10:14 PM TWISTING FRAME OPERATOR Temperature 36.6 C (97.9 F) 06/25/2023 10:14 PM TWISTING FRAME OPERATOR Respiratory Rate 14 06/25/2023 10:14 PM TWISTING FRAME OPERATOR Oxygen Saturation 97% 06/25/2023 10:14 PM TWISTING FRAME OPERATOR Inhaled Oxygen Concentration - - Weight 60.8 kg (134 lb) 06/25/2023 5:44 PM TWISTING FRAME OPERATOR Height 160 cm (5' 3 ) 06/25/2023 5:44 PM TWISTING FRAME OPERATOR Body Mass Index 23.74 06/25/2023 5:44 PM TWISTING FRAME OPERATOR Plan of Treatment Not on file Insurance [facility] HMO REF MEDICARE SOLUTIONS [facility] H[employer] REF MEDICARE SOLUTIONS MEDICARE SOLUTIONS Advance Directives For more information, please contact: [phone] * Full Code (Latest Code Status on File) Date Activated Date Inactivated Comments 04/27/2023 10:01 PM 05/01/2023 8:51 PM Care Teams Roll Off Driver Relationship Specialty Start Date End Date Jose Martin Dinero MD PCP - General Internal Medicine 06/25/23 Amee Milan PA [address] [place] [address] Emergency Medicine 06/25/23
--- OUTSIDE RECORDS SUMMARY | 2024-08-25 17:09 | XMS_ITS | Patient Health Summary ---
Author Organization [facility] Address [address] [place] [address] Care Team Providers Care Polygraph Examiner Name Role Phone Unavailable Primary Care Provider Unavailabl e Note from [facility] [place],non-owned Affiliates and Associated Physician Practices is amultiple site organization consisting of ambulatory clinics and hospital sitesin [place], [place], [place] and [place]. This disclosure is being madepursuant to the Care Everywhere program and may not contain all information available regarding this patient. Last updated 18.[facility] Social History Tobacco Use Types Packs/Day Years Used Date Smoking Tobacco: Never Assessed Sex and Gender Information Value Date Recorded Sex Assigned at Not on file Gender Identity Not on file Sexual Orientation Not on file
--- OUTSIDE RECORDS SUMMARY | 2024-08-25 17:09 | XMS_ITS | Clinical Summary ---
Author Organization [address] Address [address] [place] [address] [place] [address] Care Team Providers Care Roving Department Supervisor Name Role Phone Jose Martin Dinero MD Primary Care Provider [phone] Amee Milna PA Unavailable Allergies Active Allergy Reactions Criticality [...] on file Legal Sex Female 7:38 PM STONER HAND Gender Identity Not on file Sexual Orientation Not on file Obstetrics History Last Filed Vital Signs Vital Sign Reading Time Taken Comments Blood Pressure 155/87 06/25/2023 10:14 PM STONER HAND Pulse 54 06/25/2023 10:14 PM STONER HAND Temperature 36.6 C (97.9 F) 06/25/2023 10:14 PM STONER HAND Respiratory Rate 14 06/25/2023 10:14 PM STONER HAND Oxygen Saturation 97% 06/25/2023 10:14 PM STONER HAND Inhaled Oxygen Concentration - - Weight 60.8 kg (134 lb) 06/25/2023 5:44 PM STONER HAND Height 160 cm (5' 3 ) 06/25/2023 5:44 PM STONER HAND Body Mass Index 23.74 06/25/2023 5:44 PM STONER HAND Plan of Treatment Health Maintenance Due Date [...] 05/01/2023 Fall Risk Assessment 05/01/2024 05/01/2023 Insurance [facility] MEDIC[facility] SOLUTIONS [facility] MDCR HMO REF MEDICARE SOLUTIONS MEDICARE SOLUTIONS Advance Directives For more information, please contact: [phone] * Full Code (Latest Code Status on File) Date Activated Date Inactivated Comments 04/27/2023 10:01 PM 05/01/2023 8:51 PM Care Teams Roving Department Supervisor Relationship Specialty Start Date End Date Jose Martin Dinero MD PCP - General Internal Medicine 06/25/23 Amee Milan PA [address] [place] [address] Emergency Medicine 06/25/23
--- OUTSIDE RECORDS SUMMARY | 2024-08-25 17:09 | XMS_ITS | Referral Summary ---
Author Organization [facility] Address [address] [place] [address] Care Team Providers Care Coordinator Of Evaluation Name Role Phone Unavailable Primary Care Provider Unavailabl e Source Comments [facility],non-owned Affiliates and Associated Physician Practices is amultiple site organization consisting of ambulatory clinics and hospital sitesin [place], [place], [place] and [place]. This disclosure is being madepursuant to the Care Everywhere program and may not contain all information available regarding this patient. Last updated 18.[facility] Social History Tobacco Use Types Packs/Day Years Used Date Smoking Tobacco: Never Assessed Sex and Gender Information Value Date Recorded Sex Assigned at Not on file Gender Identity Not on file Sexual Orientation Not on file Plan of Treatment Not on file
== END 2024-08-25 14:49 | disposition home or self-care (01) ==
LOC: CHSED 14:43
PROVIDERS: Emergency Provider Emergency Medicine; PCP Physician Assistant
DX: H92.02 Otalgia, left ear (principal); E03.9 Hypothyroidism, unspecified; I10 Essential (primary) hypertension; V43.52XA Car driver injured in collision with other type car in traffic accident, initial encounter
CPT/HCPCS: 70450; 72125; 99284

== ENCOUNTER 2025-02-08 06:44 | Emergency (ER) | payer MEDICARE, OTHER, SELFPAY ==
--- NOTE | ~2025-02-08 | CT_ITS ---
EXAMINATION: CT brain wo con DATE: 02/08/2025 07:03 INDICATION: Headache and nausea TECHNIQUE: Computed tomography (CT) of the head was performed without intravenous contrast. The dose- length product was 605.33 mGy-cm. Automated exposure control and iterative reconstruction technique w ere employed. COMPARISON: CT dated 08/25/2024 FINDINGS: Study is technically adequate without evidence for pulmonary embolism. No ventriculomegaly or midline shift. There is intracranial atherosclerosis. Basilar cisterns are patent. Paranasal sinus es and mastoids are pneumatized. No acute intracranial hemorrhage, infarction, mass or mass effect. IMPRESSION: 1. No acute intracranial abnormality. Reviewed, dictated and finalized at location A.
--- NOTE | ~2025-02-08 | XR_ITS ---
EXAMINATION: XR chest 1V portable 02/08/2025 07:37 INDICATION: Headache PROCEDURE: AP portable chest COMPARISON: Comparison to multiple prior studies sequentially, with oldest reviewed study dated 10/21. FINDINGS: The lungs are clear. Cardiomegaly. There are no pleural effusions. There is no pneumothora x suspected. IMPRESSION: 1: NO ACUTE CARDIOPULMONARY DISEASE. Reviewed, dictated and finalized at location A.
--- OUTSIDE RECORDS SUMMARY | 2025-02-08 06:46 | XMS_ITS | Clinical Summary ---
Author Organization [address] Address [address] [place] [address] [place] [address] Care Team Providers Care Program Manufacturing Leader Name Role Phone Jose Martin Dinero MD Primary Care Provider [phone] Amee Milan PA Unavailable Allergies Active Allergy [...] on file Legal Sex Female 7:38 PM EMERGENCY TELECOMMUNICATIONS DISPATCHER Gender Identity Not on file Sexual Orientation Not on file Obstetrics History Last Filed Vital Signs Vital Sign Reading Time Taken Comments Blood Pressure 155/87 06/25/2023 10:14 PM EMERGENCY TELECOMMUNICATIONS DISPATCHER Pulse 54 06/25/2023 10:14 PM EMERGENCY TELECOMMUNICATIONS DISPATCHER Temperature 36.6 C (97.9 F) 06/25/2023 10:14 PM EMERGENCY TELECOMMUNICATIONS DISPATCHER Respiratory Rate 14 06/25/2023 10:14 PM EMERGENCY TELECOMMUNICATIONS DISPATCHER Oxygen Saturation 97% 06/25/2023 10:14 PM EMERGENCY TELECOMMUNICATIONS DISPATCHER Inhaled Oxygen Concentration - - Weight 60.8 kg (134 lb) 06/25/2023 5:44 PM EMERGENCY TELECOMMUNICATIONS DISPATCHER Height 160 cm (5' 3) 06/25/2023 5:44 PM EMERGENCY TELECOMMUNICATIONS DISPATCHER Body Mass Index 23.74 06/25/2023 5:44 PM EMERGENCY TELECOMMUNICATIONS DISPATCHER Plan of Treatment Health Maintenance Due Date Last Done Comments Breast Cancer Screening-Mammogram 1950 Colon Cancer Screening-Colonoscopy 1950 Depression Screening 1950 Hepatitis C Screening 1950 Osteoporosis Screening-Bone Density Scan 1950 DTaP/Tdap/Td Vaccine (1 - Tdap) 1961 Hepatitis B Screening 1968 Pneumococcal vaccine 65+ (1 of 1 - PCV) 2000 Zoster Vaccine (1 of 2) 2000 Well Visit 65+ 2015 Fall Risk Assessment 05/01/2024 05/01/2023 Influenza Vaccine (#1) 2025 05/01/2023 Insurance [facility] MEDICARE ADVANTAGE [facility] MEDICARE ADVANTAGE [facility] MEDICARE ADVANTAGE Advance Directives For more information, please contact: [phone] * Full Code (Latest Code Status on File) Date Activated Date Inactivated Comments 04/27/2023 10:01 PM 05/01/2023 8:51 PM Care Teams Program Manufacturing Leader Relationship Specialty Start Date End Date Jose Martin Dinero MD PCP - General Internal Medicine 06/25/23 Amee Milan PA [address] [place] [address] Emergency Medicine 06/25/23
--- OUTSIDE RECORDS SUMMARY | 2025-02-08 06:46 | XMS_ITS | Continuity of Care Document ---
Author Organization [facility] Address [address] [place] [address] Phone Care Team Providers Care Occupational Health Coordinator Name Role Phone Goran PT,MPT,ATC, Leon Unavailable Unavai lable Procedures Procedure Date Progress Note Therapeutic Activities Neuromuscular Re-Ed Therapeutic Exercise Therapeutic Activities Neuromuscular Re-Ed Therapeutic Exercise Therapeutic Activities Neuromuscular Re-Ed Therapeutic Exercise Therapeutic Activities Neuromuscular Re-Ed Therapeutic Exercise Therapeutic Activities Neuromuscular Re-Ed Therapeutic Exercise Doc neg elder mal no plan PRES/ABSN URINE INCON ASSESS PT Evaluation Moderate Complexity Therapeutic Activities Neuromuscular Re-Ed Advance Directives Directive Yes / No Effective Date File Name No Information Encounters Encounter Description Practice Location Reason(s) For Visit Diagnoses Date Provider Providers Copied on Encounter [facility], [place], [place], [id number], tel:[phone] [place] No Information NELLIE Guzmán, [place]. [facility], [place], [place], [id number], tel:[phone] [place] No Information May-0 5-202 5 [place] . Referring Provider: Kellie Ramirez, [address] [place] [address], [place], [address]. tel:[phone] [facility], [address], [place], [place], [id number], tel:[phone] [place] No Information May-0 2-202 5 [place] . Referring Provider: Kellie Ramirez, [address] [place] [address], [place], [address]. tel:[phone] [facility] [address] [address], [place], [place], [id number], [place] tel:[phone] [place] No Information Apr-2 5- 5 [place], [place], [place]. Referring Provider: Kellie Ramirez, [address] [place] [address], [place], [address]. tel:[phone] [facility] [address] [address], [place], [place], [id number], [place] tel:[phone] [place] No Information Sep-1 8- 5 [place], [place]. Referring Provider: Kellie Ramirez, [address] [place] [address], [place], [address]. tel:[phone] [facility] [address], [id number], tel:[phone] [place] No Information Apr-1 6- 5 [place] . Referring Provider: Kellie Ramirez, [address] [place] [address], [place], [address]. tel:[phone] [facility] [address] [address], [place], [id number], [place] tel:[phone] [place] No Information Apr-0 9- [facility] [place] Referring Provider: Kellie Ramirez, [address] [place] [address], [place], [address]. tel:[phone] Family History Family Member Type Diagnosis Age At Onset No Information Payers Payer name Insurance type Covered constitution party ID Diaz cunningham(s) Udayn-STEPANP LI 00 Social History Type Description Quantity Date Captured Comments Sex Female Smoking Status No Information Chief Complaint And Reason For Visit No Information Reason For Referral Reason For Referral No Information History Of Present Illness Encounter Date Complaint History Of Prese nt Illness No Information Functional Status Date Functional Assessmen t No Information Instructions Date Instruction Additional Infor mation No Information Assessments Type Assessment Date No Information Patient Care Teams Name Effective Dates (start - stop) Status Members No Information
--- OUTSIDE RECORDS SUMMARY | 2025-02-08 06:46 | XMS_ITS | Clinical Summary ---
Author Organization [facility] Address [address] [place] [address] Care Team Providers Care Outboard Motor Tester Name Role Phone Unavailable Primary Care Provider Unavailabl e Source Comments [facility],non-owned Affiliates and Associated Physician Practices is amultiple site organization consisting of ambulatory clinics and hospital sitesin [place], [place], [place] and [place]. This disclosure is being madepursuant to the Care Everywhere program and may not contain all information available regarding this patient. Last updated 18.[facility] Social History Tobacco Use Types Packs/Day Years Used Date Smoking Tobacco: Never Assessed Comments Unknown Sex and Gender Information Value Date Recorded Sex Assigned at Not on file Legal Sex Female 1:25 PM CORPORATE QUALITY ENGINEER Gender Identity Not on file Sexual Orientation [...] VACCINE ( - 2023-2 5 season) 2024 DEPRESSION SCREENING 07/01/2024 MEDICARE AWV CALENDAR YEAR 2024 INFLUENZA VACCINE (#1) 2025 Respiratory Syncytial Virus (RSV) Vaccine Pt: or [...] to complete this topic MENINGOCOCCAL (Group B) VACC INE SHARED DECISION-MAKING Aged Out No longer eligibl e based on patient's age to complete this topic MENINGOCOCCAL GROUPS A/C/Y/W VACCINE Aged Out No longer eligible b ased on patient's age to complete this topic Insurance [employer] MANAGED MEDICARE ADV
--- OUTSIDE RECORDS SUMMARY | 2025-02-08 06:46 | XMS_ITS | Clinical Summary ---
Author Organization [facility] Address [facility] [place] [address] Care Team Providers Care Therapy Technician Name Role Phone Amee Milan Primary Care Provider [phone] Allergies Active Allergy Reactions Criticality Noted Date [...] 3:07 PM CDT Height 160 cm (5' 3) 12/01/2023 3:07 PM CDT Body Mass Index 25.02 12/01/2023 3:07 PM CDT Plan of Treatment Health Maintenance Due Date Last Done Comments Colorectal Cancer Screening Colonoscopy (10 Years) 1950 Hepatitis C 1968 Mammogram Screening 1990 Pneumococcal Vaccine: 50+ Years (1 of 1 - PCV) 2000 Zoster Vaccines (1 of 2) 2000 Annual Medicare Wellness Visit 2015 Dexa Scan (General) 2015 DTaP, Tdap and Td Vaccines ( 2 - Td or Tdap) 10/14/2017 10/15/2007 COVID-19 Vaccine (2023-2 5 season) 2024 12/19/2021, 05/31/2021, 04/17/2021 RSV Immunization or 60+ Years (1 - [...] this topic Insurance AETNA AETNA Care Teams Therapy Technician Relationship Specialty Start Date End Date Amee Milan PA [address] [place] [id number] PCP - General PHYSICIAN CUTTING TORCH OPERATOR 03/22/22
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
--- NOTE | 2025-02-08 06:47 | ED.HA ---
HPI - Headache General Chief Complaint: Headache <Olaf Kessler MD - Last Filed: 02/08/25 06:57> Stated Complaint: Headache <Olaf Kessler MD - Last Filed: 02/08/25 06:57> Time Seen by Provider: 02/08/25 06:45 <Olaf Kessler MD - Last Filed: 02/08/25 06:57> Source: patient <Olaf Kessler MD - Last Filed: 02/08/25 06:57> Mode of arrival: ambulatory <Olaf Kessler MD - Last Filed: 02/08/25 06:57> Limitations: no limitations <Olaf Kessler MD - Last Filed: 02/08/25 06:57> History of Present Illness HPI Narrative: Patient is a 74-year-old female with a headache in the front of her head for the past 2 days. She has associated nausea and has a sensation of vomiting. No head injury. She gets headaches from time to time. This is not the worst headache of her life. <Olaf Kessler MD - Last Filed: 02/08/25 06:57> MD elicited complaint: headache <Olaf Kessler MD - Last Filed: 02/08/25 06:57> Pertinent past history: hypertension <Olaf Kessler MD - Last Filed: 02/08/25 06:57> Onset (ago): day(s) ( Two) <Olaf Kessler MD - Last Filed: 02/08/25 06:57> Onset description: gradually <Olaf Kessler MD - Last Filed: 02/08/25 06:57> Location: frontal <Olaf Kessler MD - Last Filed: 02/08/25 06:57> Severity: moderate <Olaf Kessler MD - Last Filed: 02/08/25 06:57> Pain scale (0-10): 7 <Olaf Kessler MD - Last Filed: 02/08/25 06:57> Quality & Timing: throbbing, sharp and pressure <MD eLi Brumfield Last Filed: 02/08/25 06:57> Exacerbating factors: none <Olaf Kessler MD - Last Filed: 02/08/25 06:57> Relieving factors: nothing <Olaf Kessler MD - Last Filed: 02/08/25 06:57> Context: occurred at rest <Olaf Kessler MD - Last Filed: 02/08/25 06:57> Associated symptoms: nausea and photophobia <Olaf Kessler MD - Last Filed: 02/08/25 06:57> Treatments prior to arrival: acetaminophen <Olaf Kessler MD - Last Filed: 02/08/25 06:57> Related Data Home Medications: Home Medications ?Medication ?Instructions ?Recorded ?Confirmed ?Last Taken ?Type dextroamphetamine-amphetamine 7.5 20 mg PO BID 10/20/19 03/27/24 Unknown History mg tablet hydrochlorothiazide 50 mg tablet 50 mg PO DAILY 10/20/19 03/27/24 Unknown History levothyroxine 175 mcg tablet 175 mcg PO DAILY 01/25/23 03/27/24 Unknown History paroxetine HCl 30 mg tablet 30 mg PO DAILY 01/25/23 03/27/24 Unknown History quetiapine 25 mg tablet 20 mg PO HS 01/25/23 03/27/24 Unknown History quetiapine 50 mg tablet 200 mg PO HS 01/25/23 03/27/24 Unknown History <Olaf Kessler MD - Last Filed: 02/08/25 06:57> Allergies/Adverse Reactions: Allergies Allergy/AdvReac Type Severity Reaction Status Date / Time NSAIDS (Non-Steroidal AdvReac Ulcers Verified 08/25/24 13:53 Anti-Inflamma <Olaf Kessler MD - Last Filed: 02/08/25 06:57> Review of Systems Review of Systems: All systems reviewed & are unremarkable except as noted in HPI and below <Olaf Kessler MD - Last Filed: 02/08/25 06:57> Constitutional: Constitutional: Reports no additional constitutional complaints <Olaf Kessler MD - Last Filed: 02/08/25 06:57> Eyes: Eyes: Reports no additional eye complaints <Olaf Kessler MD - Last Filed: 02/08/25 06:57> ENT: Reports system reviewed and no additional complaints, except as documented <Olaf Kessler MD - Last Filed: 02/08/25 06:57> Cardiovascular: Cardiovascular: Reports no additional cardiovascular complaints <Olaf Kessler MD - Last Filed: 02/08/25 06:57> Respiratory: Respiratory: Reports no additional respiratory complaints <Olaf Kessler MD - Last Filed: 02/08/25 06:57> Gastrointestinal: Gastrointestinal: Reports no additional gastrointestinal complaints <Olaf Kessler MD - Last Filed: 02/08/25 06:57> Genitourinary: Genitourinary: Reports no additional female genitourinary complaints <Olaf Kessler MD - Last Filed: 02/08/25 06:57> Musculoskeletal: Musculoskeletal: Reports no additional musculoskeletal complaints <Olaf Kessler MD - Last Filed: 02/08/25 06:57> Integumentary/Breasts: Skin/Breast: Reports system reviewed and no additional complaints, except as docu <Olaf Kessler MD - Last Filed: 02/08/25 06:57> Neurologic: Reports system reviewed and no additional complaints, except as documented <Olaf Kessler MD - Last Filed: 02/08/25 06:57> Psychiatric: Psychiatric: Reports no additional psychiatric complaints <Olaf Kessler MD - Last Filed: 02/08/25 06:57> Endocrine: Endocrine: Reports no additional endocrine complaints <Olaf Kessler MD - Last Filed: 02/08/25 06:57> Hematologic/Lymphatic: Hematologic/Lymphatic: Reports no additional hematologic/lymphatic complaints <Olaf Kessler MD - Last Filed: 02/08/25 06:57> Allergic/Immunologic: Allergic/Immunologic: Reports no additional allergic/immunologic complaints <Olaf Kessler MD - Last Filed: 02/08/25 06:57> PMFSH Past Medical History Medical History: Medical History Hypothyroidism Hypertension Depression <Olaf Kessler MD - Last Filed: 02/08/25 06:57> Surgical History Surgical History: Surgical History History of cholecystectomy H/O bariatric surgery <Olaf Kessler MD - Last Filed: 02/08/25 06:57> Family History Family History: Family History Mother Hypertension Carcinoma of colon <Olaf Kessler MD - Last Filed: 02/08/25 06:57> Social History Social History: Social History Smoking status: Never smoker Alcohol intake: never Alcohol use details: occasional Substance use: never Substance use type: does not use Gender identity (if verbalized by the patient): Female Spiritual care concerns: No Agree to blood products: Yes <Olaf Kessler MD - Last Filed: 02/08/25 06:57> Exam Const: General: healthy appearing <Olaf Kessler MD - Last Filed: 02/08/25 06:57> Nutritional Appearance: well nourished <Olaf Kessler MD - Last Filed: 02/08/25 06:57> Orientation/consciousness: patient oriented x3 <Olaf Kessler MD - Last Filed: 02/08/25 06:57> Limitations: no limitations <Olaf Kessler MD - Last Filed: 02/08/25 06:57> Other: patient has acute distress due to headache; the patient has a baseline histrionic and odd <Olaf Kessler MD - Last Filed: 02/08/25 06:57> HENMT: Head: normal to inspection <Olaf Kessler MD - Last Filed: 02/08/25 06:57> Ears: external ears normal <Olaf Kessler MD - Last Filed: 02/08/25 06:57> Face/Nose/Sinus: Normal external nose present <Olaf Kessler MD - Last Filed: 02/08/25 06:57> Eyes: Conjunctivae: conjunctivae normal <Olaf Kessler MD - Last Filed: 02/08/25 06:57> Pupils: Equal, round and reactive pupils present <Olaf Kessler MD - Last Filed: 02/08/25 06:57> EOM: EOMs intact bilaterally <Olaf Kessler MD - Last Filed: 02/08/25 06:57> Neck: Neck: normal visual inspection <Olaf Kessler MD - Last Filed: 02/08/25 06:57> Chest: Chest palpation & inspection: normal inspection of the chest <Olaf Ksesler MD - Last Filed: 02/08/25 06:57> Resp: Effort & Inspection: normal respiratory effort and not labored <Olaf Kessler MD - Last Filed: 02/08/25 06:57> Auscultation: clear to auscultation bilaterally and no crackles <Olaf Kessler MD - Last Filed: 02/08/25 06:57> Cardio: Rate: regular rate <Olaf Kessler MD - Last Filed: 02/08/25 06:57> Rhythm: regular rhythm <Olaf Kessler MD - Last Filed: 02/08/25 06:57> Heart sounds: no murmurs <Olaf Kessler MD - Last Filed: 02/08/25 06:57> GI: Inspection: non-distended <Olaf Kessler MD - Last Filed: 02/08/25 06:57> GI Palp: Yes Soft to palpation and No Tenderness to palpation present (GI) <MD Lei Brumfield Last Filed: 02/08/25 06:57> Auscultation: normal bowel sounds <Olaf Kessler MD - Last Filed: 02/08/25 06:57> : General: Yes bladder normal to palpation <MD Lei Brumfield Last Filed: 02/08/25 06:57> Back/Spine/Pelvis: Back: no CVA tenderness <Olaf Kessler MD - Last Filed: 02/08/25 06:57> Skin: General skin exam: normal color <Olaf Kessler MD - Last Filed: 02/08/25 06:57> Rashes: no rashes <Olaf Kesselr MD - Last Filed: 02/08/25 06:57> Wounds: no wounds <Olaf Kessler MD - Last Filed: 02/08/25 06:57> Neuro: General: patient oriented x3, moves all extremities, no meningeal signs, no focal motor deficits and CN's II-XI intact bilaterally <Olaf Kessler MD - Last Filed: 02/08/25 06:57> Cranial nerves: Yes Nystagmus not present <Olaf Kessler MD - Last Filed: 02/08/25 06:57> Speech: normal speech <Olaf Kessler MD - Last Filed: 02/08/25 06:57> Gait exam (Neuro): Normal gait present <Olaf Kessler MD - Last Filed: 02/08/25 06:57> Other: fast exam negative, NIH is 0, GCS is 15 <Olaf Kessler MD - Last Filed: 02/08/25 06:57> Extrem: General: normal to inspection <Olaf Kessler MD - Last Filed: 02/08/25 06:57> Psych: Mental Status: mental status grossly normal ( baseline) <Olaf Kessler MD - Last Filed: 02/08/25 06:57> Affect: normal affect <Olaf Kessler MD - Last Filed: 02/08/25 06:57> Attitude: cooperative <Olaf Kessler MD - Last Filed: 02/08/25 06:57> Course Vital Signs Vital signs: Vital Signs Temperature 36.6 C 02/08/25 06:52 Pulse Rate 70 02/08/25 06:52 Respiratory Rate 15 02/08/25 06:52 Blood Pressure 179/100 H 02/08/25 06:52 Pulse Oximetry 100 02/08/25 06:52 Oxygen Delivery Room Air 02/08/25 06:52 Temperature 36.6 C 02/08/25 06:52 Pulse Rate 73 02/08/25 10:03 Respiratory Rate 20 02/08/25 10:03 Blood Pressure 148/71 H 02/08/25 10:03 Pulse Oximetry 95 02/08/25 10:03 Oxygen Delivery Room Air 02/08/25 10:03 <Olaf Kessler MD - Last Filed: 02/08/25 06:57> Vital Signs Temperature 36.6 C 02/08/25 06:52 Pulse Rate 70 02/08/25 06:52 Respiratory Rate 15 02/08/25 06:52 Blood Pressure 179/100 H 02/08/25 06:52 Pulse Oximetry 100 02/08/25 06:52 Oxygen Delivery Room Air 02/08/25 06:52 Temperature 36.6 C 02/08/25 06:52 Pulse Rate 73 02/08/25 10:03 Respiratory Rate 20 02/08/25 10:03 Blood Pressure 148/71 H 02/08/25 10:03 Pulse Oximetry 95 02/08/25 10:03 Oxygen Delivery Room Air 02/08/25 10:03 <Suleman Brown MD - Last Filed: 02/08/25 10:28> MDM - Headache MDM Narrative Medical decision making narrative: patient is a 74-year-old female with a frontal headache for the past 2 days. We will do a neurological workup at this time. <Olaf Kessler MD - Last Filed: 02/08/25 06:57> patient is a 74-year-old female with a frontal headache for the past 2 days. We will do a neurological workup at this time. Patient was signed out to me at shift change waiting for labs and CT scan of the head to rule out the possibility of intracranial bleed Blood workup showed no significant abnormality Urinalysis showed no evidence of infection or any other abnormality CT head without contrast showed no acute abnormality Chest x-ray showed no acute abnormality Patient had history of anxiety, depression and psych disorder In the ED patient received 4 mg of morphine 4 mg of Zofran, 10 mg of Reglan, 25 mg of Benadryl and 30 mg of Toradol IV with remarkable improvement. The pt was discharged to home.the pt,s condition upon discharge was fair,education was provided to the pt in reference to the final impression,discharge study results,treatment,prognosis and need for follow up . <Suleman Brown MD - Last Filed: 02/08/25 10:28> Lab Data Attestation: I reviewed the patient's lab results. <Olaf Kessler MD - Last Filed: 02/08/25 06:57> Result diagrams: 02/08/25 07:08 02/08/25 07:08 <Olaf Kessler MD - Last Filed: 02/08/25 06:57> Labs: Lab Results 02/08/25 02/08/25 02/08/25 Range/Units 06:47 06:57 07:08 WBC 6.7 (4.8-10.8) K/mm3 RBC 3.98 L (4.20-5.40) M/mm3 Hgb 12.4 (11.7-13.8) g/dL Hct 38.5 (35.0-42.0) % MCV 96.7 (78.0-102.0) fL MCH 31.2 H (27.0-31.0) pg MCHC 32.2 (32-36) g/dL RDW 11.9 (11.6-14.4) % Plt Count 234 (150-420) K/mm3 MPV 10.1 (9.2-11.8) fl Immature Gran % (Auto) 0.3 H (0.0-0.0) % Neut % (Auto) 47.7 L (50.0-70.0) % Lymph % (Auto) 36.1 (18.0-42.0) % [place] % (Auto) 10.7 (2.0-11.0) % Eos % (Auto) 4.5 (1.0-6.0) % Baso % (Auto) 0.7 (0.0-1.0) % Lymph # (Auto) 2.42 (1.10-4.50) K/mm3 [place] # (Auto) 0.72 (0.10-0.90) K/mm3 Eos # (Auto) 0.30 (0.02-0.50) K/mm3 Baso # (Auto) 0.05 (0.00-0.10) K/mm3 Abs Immat Gran (auto) 0.02 H (0.00-0.00) K/mm3 Absolute Neuts (auto) 3.19 (1.70-7.20) K/mm3 Absolute Nucleated RBC 0.00 (0.00-0.00) K/mm3 Nucleated RBC % 0.0 (0-0.0) % ESR 40 H (0-20) mm/hr PT (9.50-12.1) Seconds INR APTT (23.9-30.70) Sec Sodium 139 (137-145) mmol/L Potassium 4.2 (3.4-5.0) mmol/L Chloride 106 (98-107) mmol/L Carbon Dioxide 28 (22-30) mmol/L Anion Gap 5 (4-12) mmol/L BUN 17 (7-17) mg/dL Creatinine 1.16 H (0.7-1.0) mg/dL Estim Creat Clear Calc 37 ml/min Estimated GFR 46 L (59 - ) Glucose 98 (65-110) mg/dL Calculated Osmolality 289 (285-295) mOsm/kg Calcium 9.1 (8.4-10.2) mg/dL Total Bilirubin 0.4 (0.2-1.3) mg/dL AST 39 H (14-36) U/L ALT 24 (6-35) U/L Alkaline Phosphatase 122 (38-126) U/L Troponin I < 0.012 (0.000-0.034) ng/mL Total Protein 7.9 (6.3-8.2) g/dL Albumin 4.5 (3.5-5.1) g/dL Urine Color (Yellow) Urine Appearance (Clear) Urine pH (5.0-8.0) Ur Specific [place] (1.010-1.020) Urine Protein (Negative) Urine Glucose (UA) (Negative) Urine Ketones (Negative) Ur Blood (Man) (Negative) Urine Nitrate (Negative) Urine Bilirubin (Negative) Urine Urobilinogen (0.2-1.0) mg/dL Leukocyte Esterase Rfl (Negative) DEXTER/UL 02/08/25 02/08/25 Range/Units 07:09 08:55 WBC (4.8-10.8) K/mm3 RBC (4.20-5.40) M/mm3 Hgb (11.7-13.8) g/dL Hct (35.0-42.0) % MCV (78.0-102.0) fL MCH (27.0-31.0) pg MCHC (32-36) g/dL RDW (11.6-14.4) % Plt Count (150-420) K/mm3 MPV (9.2-11.8) fl Immature Gran % (Auto) (0.0-0.0) % Neut % (Auto) (50.0-70.0) % Lymph % (Auto) (18.0-42.0) % [place] % (Auto) (2.0-11.0) % Eos % (Auto) (1.0-6.0) % Baso % (Auto) (0.0-1.0) % Lymph # (Auto) (1.10-4.50) K/mm3 [place] # (Auto) (0.10-0.90) K/mm3 Eos # (Auto) (0.02-0.50) K/mm3 Baso # (Auto) (0.00-0.10) K/mm3 Abs Immat Gran (auto) (0.00-0.00) K/mm3 Absolute Neuts (auto) (1.70-7.20) K/mm3 Absolute Nucleated RBC (0.00-0.00) K/mm3 Nucleated RBC % (0-0.0) % ESR (0-20) mm/hr PT 10.3 (9.50-12.1) Seconds INR 0.9 APTT 20.4 L (23.9-30.70) Sec Sodium (137-145) mmol/L Potassium (3.4-5.0) mmol/L Chloride (98-107) mmol/L Carbon Dioxide (22-30) mmol/L Anion Gap (4-12) mmol/L BUN (7-17) mg/dL Creatinine (0.7-1.0) mg/dL Estim Creat Clear Calc ml/min Estimated GFR (59 - ) Glucose (65-110) mg/dL Calculated Osmolality (285-295) mOsm/kg Calcium (8.4-10.2) mg/dL Total Bilirubin (0.2-1.3) mg/dL AST (14-36) U/L ALT (6-35) U/L Alkaline Phosphatase (38-126) U/L Troponin I (0.000-0.034) ng/mL Total Protein (6.3-8.2) g/dL Albumin (3.5-5.1) g/dL Urine Color Yellow (Yellow) Urine Appearance Clear (Clear) Urine pH 7.0 (5.0-8.0) Ur Specific [place] 1.015 (1.010-1.020) Urine Protein Negative (Negative) Urine Glucose (UA) Negative (Negative) Urine Ketones Negative (Negative) Ur Blood (Man) Negative (Negative) Urine Nitrate Negative (Negative) Urine Bilirubin Negative (Negative) Urine Urobilinogen 0.2 (0.2-1.0) mg/dL Leukocyte Esterase Rfl Negative (Negative) DEXTER/UL <Olaf Kessler MD - Last Filed: 02/08/25 06:57> Lab Results 02/08/25 02/08/25 02/08/25 Range/Units 06:47 06:57 07:08 WBC 6.7 (4.8-10.8) K/mm3 RBC 3.98 L (4.20-5.40) M/mm3 Hgb 12.4 (11.7-13.8) g/dL Hct 38.5 (35.0-42.0) % MCV 96.7 (78.0-102.0) fL MCH 31.2 H (27.0-31.0) pg MCHC 32.2 (32-36) g/dL RDW 11.9 (11.6-14.4) % Plt Count 234 (150-420) K/mm3 MPV 10.1 (9.2-11.8) fl Immature Gran % (Auto) 0.3 H (0.0-0.0) % Neut % (Auto) 47.7 L (50.0-70.0) % Lymph % (Auto) 36.1 (18.0-42.0) % [place] % (Auto) 10.7 (2.0-11.0) % Eos % (Auto) 4.5 (1.0-6.0) % Baso % (Auto) 0.7 (0.0-1.0) % Lymph # (Auto) 2.42 (1.10-4.50) K/mm3 [place] # (Auto) 0.72 (0.10-0.90) K/mm3 Eos # (Auto) 0.30 (0.02-0.50) K/mm3 Baso # (Auto) 0.05 (0.00-0.10) K/mm3 Abs Immat Gran (auto) 0.02 H (0.00-0.00) K/mm3 Absolute Neuts (auto) 3.19 (1.70-7.20) K/mm3 Absolute Nucleated RBC 0.00 (0.00-0.00) K/mm3 Nucleated RBC % 0.0 (0-0.0) % ESR 40 H (0-20) mm/hr PT (9.50-12.1) Seconds INR APTT (23.9-30.70) Sec Sodium 139 (137-145) mmol/L Potassium 4.2 (3.4-5.0) mmol/L Chloride 106 (98-107) mmol/L Carbon Dioxide 28 (22-30) mmol/L Anion Gap 5 (4-12) mmol/L BUN 17 (7-17) mg/dL Creatinine 1.16 H (0.7-1.0) mg/dL Estim Creat Clear Calc 37 ml/min Estimated GFR 46 L (59 - ) Glucose 98 (65-110) mg/dL Calculated Osmolality 289 (285-295) mOsm/kg Calcium 9.1 (8.4-10.2) mg/dL Total Bilirubin 0.4 (0.2-1.3) mg/dL AST 39 H (14-36) U/L ALT 24 (6-35) U/L Alkaline Phosphatase 122 (38-126) U/L Troponin I < 0.012 (0.000-0.034) ng/mL Total Protein 7.9 (6.3-8.2) g/dL Albumin 4.5 (3.5-5.1) g/dL Urine Color (Yellow) Urine Appearance (Clear) Urine pH (5.0-8.0) Ur Specific [place] (1.010-1.020) Urine Protein (Negative) Urine Glucose (UA) (Negative) Urine Ketones (Negative) Ur Blood (Man) (Negative) Urine Nitrate (Negative) Urine Bilirubin (Negative) Urine Urobilinogen (0.2-1.0) mg/dL Leukocyte Esterase Rfl (Negative) DEXTER/UL 02/08/25 02/08/25 Range/Units 07:09 08:55 WBC (4.8-10.8) K/mm3 RBC (4.20-5.40) M/mm3 Hgb (11.7-13.8) g/dL Hct (35.0-42.0) % MCV (78.0-102.0) fL MCH (27.0-31.0) pg MCHC (32-36) g/dL RDW (11.6-14.4) % Plt Count (150-420) K/mm3 MPV (9.2-11.8) fl Immature Gran % (Auto) (0.0-0.0) % Neut % (Auto) (50.0-70.0) % Lymph % (Auto) (18.0-42.0) % [place] % (Auto) (2.0-11.0) % Eos % (Auto) (1.0-6.0) % Baso % (Auto) (0.0-1.0) % Lymph # (Auto) (1.10-4.50) K/mm3 [place] # (Auto) (0.10-0.90) K/mm3 Eos # (Auto) (0.02-0.50) K/mm3 Baso # (Auto) (0.00-0.10) K/mm3 Abs Immat Gran (auto) (0.00-0.00) K/mm3 Absolute Neuts (auto) (1.70-7.20) K/mm3 Absolute Nucleated RBC (0.00-0.00) K/mm3 Nucleated RBC % (0-0.0) % ESR (0-20) mm/hr PT 10.3 (9.50-12.1) Seconds INR 0.9 APTT 20.4 L (23.9-30.70) Sec Sodium (137-145) mmol/L Potassium (3.4-5.0) mmol/L Chloride (98-107) mmol/L Carbon Dioxide (22-30) mmol/L Anion Gap (4-12) mmol/L BUN (7-17) mg/dL Creatinine (0.7-1.0) mg/dL Estim Creat Clear Calc ml/min Estimated GFR (59 - ) Glucose (65-110) mg/dL Calculated Osmolality (285-295) mOsm/kg Calcium (8.4-10.2) mg/dL Total Bilirubin (0.2-1.3) mg/dL AST (14-36) U/L ALT (6-35) U/L Alkaline Phosphatase (38-126) U/L Troponin I (0.000-0.034) ng/mL Total Protein (6.3-8.2) g/dL Albumin (3.5-5.1) g/dL Urine Color Yellow (Yellow) Urine Appearance Clear (Clear) Urine pH 7.0 (5.0-8.0) Ur Specific [place] 1.015 (1.010-1.020) Urine Protein Negative (Negative) Urine Glucose (UA) Negative (Negative) Urine Ketones Negative (Negative) Ur Blood (Man) Negative (Negative) Urine Nitrate Negative (Negative) Urine Bilirubin Negative (Negative) Urine Urobilinogen 0.2 (0.2-1.0) mg/dL Leukocyte Esterase Rfl Negative (Negative) DEXTER/UL <Suleman Brown MD - Last Filed: 02/08/25 10:28> Imaging Data Attestation: I personally reviewed and interpreted this imaging study as follows: <Olaf Kessler MD - Last Filed: 02/08/25 06:57> Discharge Plan Discharge Clinical Impression: Headache, Anxiety <Olaf Kessler MD - Last Filed: 02/08/25 06:57> Patient Disposition: Home <Olaf Kessler MD - Last Filed: 02/08/25 06:57> Condition: Improved <Olaf Kessler MD - Last Filed: 02/08/25 06:57> Instructions: Stress (ED), Acute Headache (DC) <Olaf Kessler MD - Last Filed: 02/08/25 06:57> Additional Instructions: Return if symptoms are worsening , call your family physician for appointment, take Tylenol, ibuprofen as as needed for aches and pain, continue home medications. <Olaf Kessler MD - Last Filed: 02/08/25 06:57> Patient Language: Anguillan <Olaf Kessler MD - Last Filed: 02/08/25 06:57> Prescriptions: No Action simethicone 80 mg Tablet,Chewable 80 mg PO QID Qty: 30 0RF ondansetron 4 mg tablet,disintegrating 4 mg PO Q6H PRN (Reason: nausea and vomiting) Qty: 14 0RF orphenadrine citrate 100 mg tablet extended release 100 mg PO BID PRN (Reason: pain) Qty: 20 0RF dextroamphetamine-amphetamine 7.5 mg tablet 20 mg PO BID hydrochlorothiazide 50 mg tablet 50 mg PO DAILY lamotrigine 200 mg tablet 200 mg PO DAILY Qty: 90 0RF quetiapine 25 mg tablet 20 mg PO HS levothyroxine 175 mcg tablet 175 mcg PO DAILY paroxetine HCl 30 mg tablet 30 mg PO DAILY quetiapine 50 mg tablet 200 mg PO HS <Olaf Kessler MD - Last Filed: 02/08/25 06:57> Follow-up/Referrals: Bjorn,DINORAH Lubin [Primary Care Provider] - <Olaf Kessler MD - Last Filed: 02/08/25 06:57>
[2025-02-08 06:52] VITALS: BP 179/100; PULSE 70; RESP 15; TEMP 36.6; O2SAT 100
--- NOTE | 2025-02-08 06:55 | PC.NURSE ---
PATIENT TAKEN TO CT VIA STRETCHER
--- NOTE | 2025-02-08 06:57 | ECG_ITS ---
Test Date: 2025-02-08 08:31:39 Measurements Intervals Farrell Rate: 68 P: 42 CO: 148 QRS: 67 QRSD: 95 T: 59 QT: 407 QTc: 435 Interpretive Statements SINUS RHYTHM BASELINE ARTIFACT- V3-V5 NORMAL ECG No previous ECG available for comparison Electronically Signed On 02-08-2025 08:45:39 CDT by Manas Crouch D.O.
[2025-02-08 07:18] LABS: Hematocrit 38.5 % (35.0-42.0); Hemoglobin 12.4 g/dL (11.7-13.8); Immature Granulocyte Percent A 0.3 % (0.0-0.0); Lymphocytes Absolute Auto 2.42 K/mm3 (1.10-4.50); Mean Corpuscular HGB Conc 32.2 g/dL (32-36); Mean Corpuscular Hemoglobin 31.2 pg (27.0-31.0); Mean Corpuscular Volume 96.7 fL (78.0-102.0); Nucleated Red Blood Cells Absolute Auto 0.00 K/mm3 (0.00-0.00); Nucleated Red Blood Cells Perc 0.0 % (0-0.0); Platelet Count Result 234 K/mm3 (150-420); Red Blood Count 3.98 M/mm3 (4.20-5.40); White Blood Count 6.7 K/mm3 (4.8-10.8)
[2025-02-08] MEDS: MORPHINE SULFATE (*CRX) 4 MG/ML INJ IV PUSH (07:24)
[2025-02-08] MEDS: ONDANSETRON INJ 4 MG/2 ML VIAL IV PUSH (07:24)
[2025-02-08 07:31] LABS: INR 0.9; Partial Thromboplastin Time 20.4 Sec (23.9-30.70); Prothrombin Time 10.3 Seconds (9.50-12.1)
--- OUTSIDE RECORDS SUMMARY | 2025-02-08 07:38 | XMS_ITS | Clinical Summary ---
Author Organization [facility] Address [address] [place] [address] Care Team Providers Care Lining Ironer Name Role Phone Unavailable Primary Care Provider Unavailabl e Source Comments [facility] [employer],non-owned Affiliates and Associated Physician Practices is amultiple site organization consisting of ambulatory clinics and hospital sitesin [place], [place] and [place]. This disclosure is being madepursuant to the Care Everywhere program and may not contain all information available regarding this patient. 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
--- OUTSIDE RECORDS SUMMARY | 2025-02-08 07:38 | XMS_ITS | Clinical Summary ---
Author Organization [address] Address [address] [place] [address] NELLIE Walker [address] Care Team Providers Care Key Entry Operator Name Role Phone Jose Martin Dinero MD Primary Care Provider [phone] Amee Milan PA Unavailable [phone] Allergies Active Allergy Reactions Criticality Noted Date [...] on file Legal Sex Female 7:38 PM DIE REAMER Gender Identity Not on file Sexual Orientation Not on file Obstetrics History Last Filed Vital Signs Vital Sign Reading Time Taken Comments Blood Pressure 155/87 06/25/2023 10:14 PM DIE REAMER Pulse 54 06/25/2023 10:14 PM DIE REAMER Temperature 36.6 C (97.9 F) 06/25/2023 10:14 PM DIE REAMER Respiratory Rate 14 06/25/2023 10:14 PM DIE REAMER Oxygen Saturation 97% 06/25/2023 10:14 PM DIE REAMER Inhaled Oxygen Concentration - - Weight 60.8 kg (134 lb) 06/25/2023 5:44 PM DIE REAMER Height 160 cm (5' 3) 06/25/2023 5:44 PM DIE REAMER Body Mass Index 23.74 06/25/2023 5:44 PM DIE REAMER Plan of Treatment Health Maintenance Due Date [...] 05/01/2023 Influenza Vaccine (#1) 2025 05/01/2023 [facility] MEDICARE ADVANTAGE [facility] MEDICARE ADVANTAGE [facility] MEDICARE ADVANTAGE Advance Directives For more information, please contact: [phone] * Full Code (Latest Code Status on File) Date Activated Date Inactivated Comments 04/27/2023 10:01 PM 05/01/2023 8:51 PM Care Teams Key Entry Operator Relationship Specialty Start Date End Date Jose Martin Dinero MD PCP - General Internal Medicine 06/25/23 Amee Milan PA [address] [place] [id number] Emergency Medicine 06/25/23
[2025-02-08 07:40] LABS: Alanine Aminotransferase 24 U/L (6-35); Albumin Level 4.5 g/dL (3.5-5.1); Alkaline Phosphatase 122 U/L (38-126); Anion Gap 5 mmol/L (4-12); Aspartate Amino Transferase 39 U/L (14-36); Bilirubin,Total 0.4 mg/dL (0.2-1.3); Blood Urea Nitrogen 17 mg/dL (7-17); Calcium 9.1 mg/dL (8.4-10.2); Carbon Dioxide 28 mmol/L (22-30); Chloride 106 mmol/L (98-107); Estimated CRCL calculation 37 ml/min; Estimated Glomerular Filt Rate 46; Glucose 98 mg/dL (65-110); Osmolality Calculated 289 mOsm/kg (285-295); Potassium 4.2 mmol/L (3.4-5.0); Sodium 139 mmol/L (137-145); Total Protein 7.9 g/dL (6.3-8.2)
[2025-02-08 07:52] LABS: Troponin I < 0.012 ng/mL (0.000-0.034)
[2025-02-08 08:30] VITALS: BP 141/100; PULSE 68; RESP 20; O2SAT 94
[2025-02-08 09:02] LABS: Add Urine Microscopic? NO; Appearance Urine Clear (Clear); Glucose Urine UA Negative (Negative); Leukocyte Esterase Ur Negative LEU/UL (Negative); Nitrate Urine Negative (Negative); Specific Grav Ur 1.015 (1.010-1.020)
[2025-02-08 09:15] VITALS: BP 131/98; PULSE 70; RESP 20; O2SAT 95
[2025-02-08] MEDS: METOCLOPRAMIDE HCL INJ 10 MG/2 ML VIAL IV PUSH (09:24)
[2025-02-08] MEDS: KETOROLAC 30 MG/ML VIAL (*BKC) IV PUSH (09:24)
[2025-02-08 09:30] VITALS: BP 171/81; PULSE 72; RESP 20; O2SAT 95
[2025-02-08 10:03] VITALS: BP 148/71; PULSE 73; RESP 20; O2SAT 95
== END 2025-02-08 10:47 | disposition home or self-care (01) ==
PROVIDERS: Emergency Medicine; Emergency Provider Emergency Medicine; PCP Physician Assistant
DX: R51.9 Headache, unspecified (principal); F41.9 Anxiety disorder, unspecified; E03.9 Hypothyroidism, unspecified; I10 Essential (primary) hypertension; Z90.49 Acquired absence of other specified parts of digestive tract
CPT/HCPCS: 36415; 70450; 71045; 80053; 81003; 84484; 85025; 85610; 85652; 85730; 93005; 96374; 96375; 99284; J1200; J1885; J2270; J2405; J2765

== ENCOUNTER 2025-03-12 10:21 | Observation (INO) | payer MEDICARE, OTHER, SELFPAY ==
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
[2025-03-12] VITALS (16 sets, daily range): BP systolic 99–158; BP diastolic 48–88; PULSE 66–86; RESP 16–25; TEMP 36.1–36.6; O2SAT 90–98; BMI 28.2
--- NOTE | ~2025-03-12 | US_ITS ---
EXAMINATION: US venous doppler [facility] DATE: 03/12/2025 11:14 INDICATION: Lower limb pain TECHNIQUE: Grayscale ultrasound images without and with compression and Doppler ultrasound images of the left lower extremity veins were obtained. COMPARISON: None. FINDINGS: There is noncompressible hypoechoic deep venous thrombosis in the left femoral vein, popliteal vein, posterior tibial veins and peroneal veins which appears occlusive or near occlusive on color Doppler imaging. The visualized portions of left common femoral vein, profunda (deep) femoral vein, gastrocnemius vein and greater saphenous vein outflow are patent. IMPRESSION: 1. Extensive above and [id number] deep venous fibrosis extending from the posterior tibial and peroneal veins of the calf proximally through the proximal left femoral vein. Dr. Aldrich discussed these findings with Dr. Adhikari at 11:24 AM. Reviewed, dictated and finalized at location A. IMPRESSION: 1. Extensive above and [id number] deep venous fibrosis extending from the posterior tibial and peroneal veins of the calf proximally through the proximal left femoral vein. Dr. Aldrich discussed these findings with Dr. Adhikari at 11:24 AM.
--- NOTE | ~2025-03-12 | XR_ITS ---
X-rays left knee Indication: Pain Comparison: None Technique: 4 views left knee Findings/Impression: 1. No acute fracture, dislocation, or effusion left knee. 2. Moderate medial and patellofemoral compartment joint space narrowing. Reviewed, dictated and finalized at location R.
--- NOTE | ~2025-03-12 | CT_ITS ---
CTA CHEST CLINICAL HISTORY: PE . COMPARISON: Chest x-ray 02/08/2025 TECHNIQUE: Helical CTA performed from thoracic inlet to upper abdomen 100 mL Omnipaque 350 Coronal, sagittal reformats. Multiplanar MIPS CT images acquired with automatic exposure control for dose reduction DLP: 171 mGy-cm FINDINGS: Pulmonary arteries: Scattered PE in most lobar segmental branches bilaterally. Moderate volume clot. Thoracic Aorta: No dissection or aneurysm. Heart/pericardium: Small coronary artery calcifications. RV/LV ratio: Normal. Lungs/Pleura: Linear atelectasis lingula. Tracheobronchial tree: Patent. Nodes: No enlarged nodes. Bones: Severe compression deformity T4. Superior endplate compression fracture of L1, assuming T12 as counted from above has no ribs. Chronic sternomanubrial fracture. Soft tissues: Unremarkable. Visualized upper abdomen: Hiatal hernia, with suture line. Findings discussed via telephone by myself with Dr. Kerwin Adhikari at 1:44 PM EST. IMPRESSION: 1. Scattered bilateral PE. Moderate volume clot. 2. No CT evidence of right heart strain. Labs more sensitive. 3. Lungs clear. Reviewed, dictated and finalized at location R.
--- OUTSIDE RECORDS SUMMARY | 2025-03-12 11:10 | XMS_ITS | Clinical Summary ---
Author Organization [facility] Address [address] [place] [address] Care Team Providers Care Face Hardener Name Role Phone Unavailable Primary Care Provider Unavailabl e Source Comments [facility] [employer],non-owned Affiliates and Associated Physician Practices is amultiple site organization consisting of ambulatory clinics and hospital sitesin [place], [place], [place] and [place]. This disclosure is being madepursuant to the Care Everywhere program and may not contain all information available regarding this patient. Last updated 18.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
--- OUTSIDE RECORDS SUMMARY | 2025-03-12 11:10 | XMS_ITS | Clinical Summary ---
Author Organization [facility] Address [facility]ly [facility] [address] [place] [address] Care Team Providers Care Urban Redevelopment Specialist Name Role Phone Amee Milan Primary Care Provider [phone] Allergies Active Allergy Reactions Criticality Noted Date [...] Td or Tdap) 10/14/2017 10/15/2007 COVID-19 Vaccine (2024-2 6 season) 2025 12/19/2021, 05/31/2021, 04/17/2021 RSV Immunization or 60+ [...] this topic Insurance AETNA AETNA Care Teams Urban Redevelopment Specialist Relationship Specialty Start Date End Date Amee Milan PA [address] [place] [address] PCP - General PHYSICIAN SHAREPOINT ADMINISTRATOR 03/22/22
--- OUTSIDE RECORDS SUMMARY | 2025-03-12 11:10 | XMS_ITS | Clinical Summary ---
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 Gender Identity Not on file Sexual Orientation Not on file Obstetrics History Last Filed Vital Signs Vital Sign Reading Time Taken Comments Blood Pressure 155/87 06/25/2023 10:14 PM ELECTRICAL JOURNEYMAN Pulse 54 06/25/2023 10:14 PM ELECTRICAL JOURNEYMAN Temperature 36.6 C (97.9 F) 06/25/2023 10:14 PM ELECTRICAL JOURNEYMAN Respiratory Rate 14 06/25/2023 10:14 PM ELECTRICAL JOURNEYMAN Oxygen Saturation 97% 06/25/2023 10:14 PM ELECTRICAL JOURNEYMAN Inhaled Oxygen Concentration - - Weight 60.8 kg (134 lb) 06/25/2023 5:44 PM ELECTRICAL JOURNEYMAN Height 160 cm (5' 3) 06/25/2023 5:44 PM ELECTRICAL JOURNEYMAN Body Mass Index 23.74 06/25/2023 5:44 PM ELECTRICAL JOURNEYMAN Plan of Treatment Health Maintenance Due Date [...] 05/01/2023 Influenza Vaccine (#1) 2025 05/01/2023 Insurance [facility] ADVANTAGE [facility] MEDIC[facility] ADVANTAGE [facility] ADV[facility]AGE Advance Directives For more information, please contact: [phone] * Full Code (Latest Code Status on File) Date Activated Date Inactivated Comments 04/27/2023 10:01 PM 05/01/2023 8:51 PM Care Teams Objects Conservator Relationship Specialty Start Date End Date Jose Martin Dinero MD PCP - General Internal Medicine 06/25/23 Amee Milan PA [address] [place] [id number] Emergency Medicine 06/25/23
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
--- NOTE | 2025-03-12 11:16 | ED.GENADULT ---
HPI - General Adult General Chief complaint: Extremity Injury, Lower Stated complaint: left foot pain Time Seen by Provider: 03/12/25 10:29 Source: patient Mode of arrival: ambulatory Limitations: no limitations History of Present Illness HPI narrative: 74-year-old with a history of hypertension, depression here with a complains of left knee and leg pain for 1 day. She denies any trauma. Patient states that she woke up with severe pain behind the left knee. no H/O of DVT , Onset (ago): day(s) (1) Radiation: non-radiation Severity: moderate Quality: aching Pain Consistency: constant Relieving factors: none Exacerbating factors: none Associated symptoms: denies other symptoms Related Data Home Medications ?Medication ?Instructions ?Recorded ?Confirmed ?Last Taken ?Type dextroamphetamine-amphetamine 7.5 20 mg PO BID 10/20/19 03/27/24 Unknown History mg tablet hydrochlorothiazide 50 mg tablet 50 mg PO DAILY 10/20/19 03/12/25 Unknown History levothyroxine 175 mcg tablet 175 mcg PO DAILY 01/25/23 03/27/24 Unknown History paroxetine HCl 30 mg tablet 30 mg PO DAILY 01/25/23 03/27/24 Unknown History quetiapine 25 mg tablet 20 mg PO HS 01/25/23 03/27/24 Unknown History quetiapine 50 mg tablet 200 mg PO HS 01/25/23 03/27/24 Unknown History Allergies Allergy/AdvReac Type Severity Reaction Status Date / Time NSAIDS (Non-Steroidal AdvReac Ulcers Verified 03/12/25 10:42 Anti-Inflamma Review of Systems Review of Systems: All systems reviewed & are unremarkable except as noted in HPI and below Constitutional: Constitutional: Reports no additional constitutional complaints Eyes: Eyes: Reports no additional eye complaints Cardiovascular: Cardiovascular: Reports no additional cardiovascular complaints Respiratory: Respiratory: Reports no additional respiratory complaints Gastrointestinal: Gastrointestinal: Reports no additional gastrointestinal complaints Genitourinary: Genitourinary: Reports no additional female genitourinary complaints Musculoskeletal: Musculoskeletal: Reports as per HPI [facility] Past Medical History Medical History Hypothyroidism Hypertension Depression Surgical History Surgical History History of cholecystectomy H/O bariatric surgery Family History Family History Mother Hypertension Carcinoma of colon Social History Social History Smoking status: Never smoker Alcohol intake: never Alcohol use details: occasional Substance use: never Substance use type: does not use Gender identity (if verbalized by the patient): Female Spiritual care concerns: No Agree to blood products: Yes Exam Narrative: GENERAL: Well-appearing, well-nourished, and in no acute distress. HEAD: Normocephalic, atraumatic. EYES: PERRLA and EOMI. ENT: Nares clear, no rhinorrhea or epistaxis. Mucous membranes moist. NECK: Supple. CHEST: Clear to auscultation. No respiratory distress. HEART: Regular rate and rhythm. No murmur heard. Normal peripheral pulses. ABDOMEN: Soft, nontender, nondistended, normal active bowel sounds. EXTREMITIES: Normal range of motion. No edema. Examination of the left knee shows no deformity, no swelling SKIN: Warm, dry, no rash. NEURO: No focal deficits. Alert and oriented x3. PSYCH: Normal mood and affect. Course Course Emergency Course: patient remained asymptomatic while she is here in the ER. She has positive DVT on left lower extremity abdomen tender CT of her chest which showed bilateral PE with no of heart strain. Informed patient about her lab work, CT findings discussed with the hospitalist will accept the patient. Vital Signs Vital signs: Vital Signs Temperature 36.6 C 03/12/25 10:23 Pulse Rate 86 03/12/25 10:23 Respiratory Rate 03/12/25 10:23 Blood Pressure 140/58 L 03/12/25 10:23 Pulse Oximetry 96 03/12/25 10:23 Oxygen Delivery Room Air 03/12/25 10:23 Temperature 36.6 C 03/12/25 10:23 Pulse Rate 86 03/12/25 10:23 Respiratory Rate 03/12/25 10:23 Blood Pressure 140/58 L 03/12/25 10:23 Pulse Oximetry 96 03/12/25 10:23 Oxygen Delivery Room Air 03/12/25 10:23 Medical Decision Making [facility] Narrative Medical decision making narrative: 24-year-old with the Dr. Popliteal pain did slowly been doing ultrasound and x-ray of her knee with positive will do extensive workup. Differential Diagnosis Differential Diagnosis: DJD of the knee, Moreno cyst, DVT Medical Records Medical records reviewed: Yes I reviewed the external patient's medical records. Vital Signs Vital Signs: Vital Signs Temperature 36.6 C 03/12/25 10:23 Pulse Rate 86 03/12/25 10:23 Respiratory Rate 20 03/12/25 10:23 Blood Pressure 140/58 L 03/12/25 10:23 Pulse Oximetry 96 03/12/25 10:23 Oxygen Delivery Room Air 03/12/25 10:23 Temperature 36.6 C 03/12/25 10:23 Pulse Rate 86 03/12/25 10:23 Respiratory Rate 20 03/12/25 10:23 Blood Pressure 140/58 L 03/12/25 10:23 Pulse Oximetry 96 03/12/25 10:23 Oxygen Delivery Room Air 03/12/25 10:23 Lab Data 03/12/25 11:38 03/12/25 11:38 Labs: Lab Results 03/12/25 Range/Units 11:38 WBC 8.9 (4.8-10.8) K/mm3 RBC 3.62 L (4.20-5.40) M/mm3 Hgb 11.5 L (11.7-13.8) g/dL Hct 35.5 (35.0-42.0) % MCV 98.1 (78.0-102.0) fL MCH 31.8 H (27.0-31.0) pg MCHC 32.4 (32-36) g/dL RDW 12.2 (11.6-14.4) % Plt Count 206 (150-420) K/mm3 MPV 9.9 (9.2-11.8) fl Immature Gran % (Auto) 0.2 H (0.0-0.0) % Neut % (Auto) 62.2 (50.0-70.0) % Lymph % (Auto) 24.2 (18.0-42.0) % [place] % (Auto) 10.0 (2.0-11.0) % Eos % (Auto) 2.7 (1.0-6.0) % Baso % (Auto) 0.7 (0.0-1.0) % Lymph # (Auto) 2.16 (1.10-4.50) K/mm3 [place] # (Auto) 0.89 (0.10-0.90) K/mm3 Eos # (Auto) 0.24 (0.02-0.50) K/mm3 Baso # (Auto) 0.06 (0.00-0.10) K/mm3 Abs Immat Gran (auto) 0.02 H (0.00-0.00) K/mm3 Absolute Neuts (auto) 5.57 (1.70-7.20) K/mm3 Absolute Nucleated RBC 0.00 (0.00-0.00) K/mm3 Nucleated RBC % 0.0 (0-0.0) % PT 10.5 (9.50-12.1) Seconds INR 0.9 Sodium 140 (137-145) mmol/L Potassium 5.2 H (3.4-5.0) mmol/L Chloride 104 (98-107) mmol/L Carbon Dioxide 26 (22-30) mmol/L Anion Gap 10 (4-12) mmol/L BUN 25 H (7-17) mg/dL Creatinine 0.93 (0.7-1.0) mg/dL Estim Creat Clear Calc 45 ml/min Estimated GFR 59 (59 - ) Glucose 183 H (65-110) mg/dL Calculated Osmolality 299 H (285-295) mOsm/kg Calcium 9.3 (8.4-10.2) mg/dL Total Bilirubin 0.5 (0.2-1.3) mg/dL AST 30 (14-36) U/L ALT 18 (6-35) U/L Alkaline Phosphatase 105 (38-126) U/L Troponin I < 0.012 (0.000-0.034) ng/mL NT-Pro-B Natriuret Pep 136 H (19.9-100) pg/mL Total Protein 7.2 (6.3-8.2) g/dL Albumin 4.1 (3.5-5.1) g/dL Imaging Data Radiologist's impression: ITS Impressions Venous Doppler Study 03/12/25 11:21 IMPRESSION: 1. Extensive above and [id number] deep venous fibrosis extending from the posterior tibial and peroneal veins of the calf proximally through the proximal left femoral vein. Dr. Aldrich discussed these findings with Dr. Adhikari at 11:24 AM. ECG Data EKG #1: ECG completion time: 12:16 EKG Interpretation: normal rate (73), sinus rhythm, normal QRS and NL axis Discharge Plan Discharge Clinical Impression: Pulmonary embolism, Acute deep vein thrombosis (DVT) of left lower extremity Patient Disposition: Still a Patient Condition: Stable Patient Language: Persian Prescriptions: No Action dextroamphetamine-amphetamine 7.5 mg tablet 20 mg PO BID hydrochlorothiazide 50 mg tablet 50 mg PO DAILY lamotrigine 200 mg tablet 200 mg PO DAILY Qty: 90 0RF quetiapine 25 mg tablet 20 mg PO HS levothyroxine 175 mcg tablet 175 mcg PO DAILY paroxetine HCl 30 mg tablet 30 mg PO DAILY quetiapine 50 mg tablet 200 mg PO HS Follow-up/Referrals: UNKNOWN,DOCTOR [Non-Staff] Time of Disposition: 12:59
--- NOTE | 2025-03-12 11:26 | ECG_ITS ---
Test Date: 2025-03-12 12:16:26 Measurements Intervals [place] Rate: 73 P: 44 DC: 164 QRS: 49 QRSD: 91 T: 17 QT: 385 QTc: 425 Interpretive Statements SINUS RHYTHM NONSPECIFIC T-WAVE ABNORMALITY Compared to ECG 02/08/2025 08:31:39 T-wave abnormality now present Electronically Signed On 03-12-2025 15:43:23 CDT by Byron Marcelo M.D.
[2025-03-12 11:41] LABS: Hematocrit 35.5 % (35.0-42.0); Hemoglobin 11.5 g/dL (11.7-13.8); Immature Granulocyte Percent A 0.2 % (0.0-0.0); Lymphocytes Absolute Auto 2.16 K/mm3 (1.10-4.50); Mean Corpuscular HGB Conc 32.4 g/dL (32-36); Mean Corpuscular Hemoglobin 31.8 pg (27.0-31.0); Mean Corpuscular Volume 98.1 fL (78.0-102.0); Nucleated Red Blood Cells Absolute Auto 0.00 K/mm3 (0.00-0.00); Nucleated Red Blood Cells Perc 0.0 % (0-0.0); Platelet Count Result 206 K/mm3 (150-420); Red Blood Count 3.62 M/mm3 (4.20-5.40); White Blood Count 8.9 K/mm3 (4.8-10.8)
[2025-03-12 11:53] LABS: Alanine Aminotransferase 18 U/L (6-35); Albumin Level 4.1 g/dL (3.5-5.1); Alkaline Phosphatase 105 U/L (38-126); Anion Gap 10 mmol/L (4-12); Aspartate Amino Transferase 30 U/L (14-36); Bilirubin,Total 0.5 mg/dL (0.2-1.3); Blood Urea Nitrogen 25 mg/dL (7-17); Calcium 9.3 mg/dL (8.4-10.2); Carbon Dioxide 26 mmol/L (22-30); Chloride 104 mmol/L (98-107); Estimated CRCL calculation 45 ml/min; Estimated Glomerular Filt Rate 59; Glucose 183 mg/dL (65-110); Osmolality Calculated 299 mOsm/kg (285-295); Potassium 5.2 mmol/L (3.4-5.0); Sodium 140 mmol/L (137-145); Total Protein 7.2 g/dL (6.3-8.2)
[2025-03-12 11:55] LABS: INR 0.9; Prothrombin Time 10.5 Seconds (9.50-12.1)
--- OUTSIDE RECORDS SUMMARY | 2025-03-12 11:55 | XMS_ITS | Clinical Summary ---
Author Organization [facility] Address [address] [place] [address] Care Team Providers Care Supervisor Metal Cans Name Role Phone Unavailable Primary Care Provider Unavailabl e Source Comments [facility],non-owned Affiliates and Associated Physician Practices is amultiple site organization consisting of ambulatory clinics and hospital sitesin [place], [place], [place] and [place]. This disclosure is being madepursuant to the Care Everywhere program and may not contain all information available regarding this patient. 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
--- OUTSIDE RECORDS SUMMARY | 2025-03-12 11:55 | XMS_ITS | Clinical Summary ---
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
--- OUTSIDE RECORDS SUMMARY | 2025-03-12 11:55 | XMS_ITS | Clinical Summary ---
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 Gender Identity Not on file Sexual Orientation Not on file Obstetrics History Last Filed Vital Signs Vital Sign Reading Time Taken Comments Blood Pressure 155/87 06/25/2023 10:14 PM COMMUNITY SERVICE WORKER Pulse 54 06/25/2023 10:14 PM COMMUNITY SERVICE WORKER Temperature 36.6 C (97.9 F) 06/25/2023 10:14 PM COMMUNITY SERVICE WORKER Respiratory Rate 14 06/25/2023 10:14 PM COMMUNITY SERVICE WORKER Oxygen Saturation 97% 06/25/2023 10:14 PM COMMUNITY SERVICE WORKER Inhaled Oxygen Concentration - - Weight 60.8 kg (134 lb) 06/25/2023 5:44 PM COMMUNITY SERVICE WORKER Height 160 cm (5' 3) 06/25/2023 5:44 PM COMMUNITY SERVICE WORKER Body Mass Index 23.74 06/25/2023 5:44 PM COMMUNITY SERVICE WORKER Plan of Treatment Health Maintenance Due Date [...] 05/01/2023 Influenza Vaccine (#1) 2025 05/01/2023 [facility] MEDICARE ADVANTAGE [facility] MEDICARE ADVANTAGE [facility] MEDICARE ADVANTAGE Advance Directives For more information, please contact: [phone] * Full Code (Latest Code Status on File) Date Activated Date Inactivated Comments 04/27/2023 10:01 PM 05/01/2023 8:51 PM Care Teams Bench Hand Machine Relationship Specialty Start Date End Date Jose Martin Dinero MD PCP - General Internal Medicine 06/25/23 Amee Milan PA [address] [place] [id number] Emergency Medicine 06/25/23
[2025-03-12 12:05] LABS: NT Pro B Type Natriuretic Pept 136 pg/mL (19.9-100); Troponin I < 0.012 ng/mL (0.000-0.034)
[2025-03-12] MEDS: ENOXAPARIN 100 MG/ML SYRINGE 73 MG SUB-Q ×2 (13:41→20:12)
[2025-03-12] MEDS: ACETAMINOPHEN 325 MG TABLET 650 MG PO (13:41)
--- NOTE | 2025-03-12 14:26 | ADMGEN ---
This patient, Shelley Soria, was admitted to 2nd Floor Room 204-2. Patient/family oriented to hospital policies and general routines including ID bracelet, bed and alarms, visiting hours, pain management, procedures, bathroom and other care routines, personal items, smoking policy, room service/diet, and visiting hours. Information on how to activate the Rapid Response Team has been discussed. Patient/Family are encouraged to report perceived risks to care and to ask questions if they do not understand what they are told or what they should do.
[2025-03-12] MEDS: SODIUM ZIRCONIUM CYCLOSILICATE 5 GM POWD.PACK PO (17:36)
[2025-03-12 20:15] LABS: Troponin I < 0.012 ng/mL (0.000-0.034)
[2025-03-13] VITALS: BP 123/62; PULSE 75; RESP 16; TEMP 36.5
[2025-03-13 04:00] VITALS: BP 120/55; PULSE 72; RESP 16; TEMP 37; O2SAT 94
[2025-03-13] MEDS: ACETAMINOPHEN 325 MG TABLET 650 MG PO ×2 (04:24→12:48)
[2025-03-13] MEDS: LEVOTHYROXINE 125 MCG PO (05:52)
[2025-03-13] MEDS: [UNRECOGNIZED DRUG - OTHER] PO (05:52)
[2025-03-13 07:18] LABS: Hematocrit 32.4 % (35.0-42.0); Hemoglobin 10.5 g/dL (11.7-13.8); Mean Corpuscular HGB Conc 32.4 g/dL (32-36); Mean Corpuscular Hemoglobin 32.7 pg (27.0-31.0); Mean Corpuscular Volume 100.9 fL (78.0-102.0); Platelet Count Result 156 K/mm3 (150-420); Red Blood Count 3.21 M/mm3 (4.20-5.40); White Blood Count 8.5 K/mm3 (4.8-10.8)
[2025-03-13 07:24] LABS: Alanine Aminotransferase 14 U/L (6-35); Albumin Level 3.3 g/dL (3.5-5.1); Alkaline Phosphatase 94 U/L (38-126); Anion Gap 7 mmol/L (4-12); Aspartate Amino Transferase 24 U/L (14-36); Bilirubin,Total 0.3 mg/dL (0.2-1.3); Blood Urea Nitrogen 27 mg/dL (7-17); Calcium 8.7 mg/dL (8.4-10.2); Carbon Dioxide 26 mmol/L (22-30); Chloride 108 mmol/L (98-107); Estimated CRCL calculation 43 ml/min; Estimated Glomerular Filt Rate 57; Glucose 85 mg/dL (65-110); Osmolality Calculated 296 mOsm/kg (285-295); Potassium 3.9 mmol/L (3.4-5.0); Sodium 141 mmol/L (137-145); Total Protein 6.0 g/dL (6.3-8.2)
[2025-03-13 07:32] LABS: Hemoglobin A1C 5.3 % (<5.7)
[2025-03-13 08:00] VITALS: BP 127/66; PULSE 63; PULSE 64; RESP 16; TEMP 36.4; O2SAT 97
[2025-03-13] MEDS: ENOXAPARIN 100 MG/ML SYRINGE 73 MG SUB-Q (09:10)
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
[2025-03-13 12:00] VITALS: BP 122/64; PULSE 64; RESP 18; TEMP 36.4; O2SAT 96
--- NOTE | 2025-03-13 14:30 | PC.NURSE ---
Discharge instructions reviewed with patient. Patient verbalizes understanding. Reinforced education omn continued blood thinners. Patient taken off floor per wheelchair.
--- NOTE | 2025-03-16 08:20 | PC.NURSE ---
Unable to reach for call back.
== END 2025-03-13 14:05 | disposition home or self-care (01) ==
LOC: CHSED 13:05 → CHS2ND 13:06
PROVIDERS: Nurse Practitioner Family; Admitting Provider Internal Medicine; Emergency Provider Family Medicine; PCP Physician Assistant; Visit Provider Internal Medicine
DX: I82.442 Acute embolism and thrombosis of left tibial vein (principal); I82.452 Acute embolism and thrombosis of left peroneal vein; I82.412 Acute embolism and thrombosis of left femoral vein; I26.99 Other pulmonary embolism without acute cor pulmonale; I10 Essential (primary) hypertension; E03.9 Hypothyroidism, unspecified; F32.9 Major depressive disorder, single episode, unspecified; Z79.899 Other long term (current) drug therapy
CPT/HCPCS: 36415; 71275; 73564; 80053; 83036; 83880; 84484; 85025; 85027; 85610; 93005; 93971; 96372; 99285; A9270; G0378; J1650; Q9967